=== PATIENT | male | born 1960 | race Caucasian/White ===

== ENCOUNTER 2017-03-07 00:52 | Inpatient (IN) | payer OTHER ==
[2017-03-07] VITALS (8 sets, daily range): BP systolic 128–154; BP diastolic 65–74; PULSE 90–102; TEMP 36.8–37.2; O2SAT 69–97; BMI 29.8
[~2017-03-07] VITALS: Ht 170.2 cm; Wt 72.4 kg
[2017-03-07] MEDS ORDERED: LORAZEPAM 2 MG/ML 1 ML VIAL IV PRN (09:30)
[2017-03-07] MEDS ORDERED: ONDANSETRON INJ 2 MG/ML 2 ML VIAL IV PRN (09:30)
[2017-03-07] MEDS ORDERED: INSULIN GLARGINE SOLOSTAR 100 UNITS/ML 3 ML PEN SC SCH (09:30)
[2017-03-07] MEDS ORDERED: HydrALAZINE HCL 20 MG/ML VIAL IV. PRN (09:30)
[2017-03-07] MEDS ORDERED: ACETAMINOPHEN 325 MG TAB PO PRN (09:30)
[2017-03-07] MEDS ORDERED: LORAZEPAM 0.5 MG TAB PO PRN (09:30)
[2017-03-07] MEDS ORDERED: PATIENT'S ALLERGY INFO NEEDS ENTERED SCH (10:15)
[2017-03-07] MEDS ORDERED: FERR1TAB13 PO (10:51)
[2017-03-07] MEDS ORDERED: ASPI81TA28 PO (10:51)
[2017-03-07] MEDS ORDERED: PANT40TA PO (10:51)
[2017-03-07] MEDS ORDERED: INSPMPHMLG SQ (10:51)
[2017-03-07] MEDS ORDERED: INSU1.2I SQ (10:51)
[2017-03-07] MEDS ORDERED: GABA-113 PO (10:51)
[2017-03-07] MEDS ORDERED: AMLO2.5T PO (10:51)
[2017-03-07] MEDS ORDERED: ASCO500C43 OR (10:51)
[2017-03-07] MEDS ORDERED: LOSA50TA6 PO (10:51)
[2017-03-07] MEDS: SODIUM CHLORIDE 0.9% 1000ML 1,000 ML IV SCH ×2 (10:59→21:35)
[2017-03-07] MEDS ORDERED: INFLUENZA VIRUS QUAD VACCINE 0.5 ML SYR IM. ONE (11:00)
[2017-03-07] MEDS ORDERED: INSULIN ASPART 100 UNITS/ML 3 ML PEN SC SCH (11:00)
[2017-03-07] MEDS ORDERED: INFLUENZA ADMINISTRATION CHARGE ONE (11:00)
[2017-03-07 11:10] LABS: CALCIUM 8.4 mg/dl (8.5-10.1)
[2017-03-07] MEDS ORDERED: DEXTROSE 50% 50 ML SYR IV PRN (11:30)
[2017-03-07] MEDS ORDERED: GLUCOSE 10 TABS/TUBE PO PRN (11:30)
[2017-03-07] MEDS ORDERED: GLUCOSE 40% GEL 15 GM TUBE PO PRN (11:30)
[2017-03-07] MEDS ORDERED: GLUCAGON FOR INJ 1 MG VIAL SQ PRN (11:30)
[2017-03-07] MEDS: PANTOprazole INJ 40 MG in SYRINGE 0 ML IV SCH (11:40)
[2017-03-07] MEDS ORDERED: SODIUM POLYST. SULF SUSP 15G/60ML PO ONE ×2 (11:58→18:45)
[2017-03-07] MEDS ORDERED: PHARMACY GLYCEMIC MGMT CONSULT SCH (12:22)
--- NOTE | 2017-03-07 13:36 | History and Physical ---
History & Physical Date & Time of Service: Mar 07, 2017 at 13:20 Chief Complaint: Abdominal Pain, Anemia Primary Care Physician: Mitul Chu M.D. History of Present Illness pt arrives in transfer from [facility] with abdominal pain and shortness of breath , the pt states his abdomen did begin bloating for the last few days after attending a the medical center picnic, he states his bowel movements are normal, he has had no diarrhea or fever. he has been making urine normally and his recent AV fistulae is without pain or new tenderness. IN the Er he was given antibiotic for possible infiltrate/pneumonia seen although did not have fever or cough( other than smokers cough). His abdominal pain is diffuse, dull and only worse with movement but does not have classic peritoneal signs. He also is noted to have some hypoglycemia at the ER Social History Smoking Status: Current Every Day Smoker Allergies Coded Allergies: No Known Allergies (Unverified , 03/07/17) Home Medications Scheduled Amlodipine (Norvasc), 2.5 MG PO DAILY Ascorbic Acid (Vitamin C 500 mg), 500 MG OR BID Aspirin (Aspirin Ec), 81 MG PO DAILY Ferrous Sulfate (Kp Ferrous Sulfate), 1 TAB PO BID Gabapentin (Neurontin), 1,200 MG PO TID Insulin Glargine (Toujeo Solostar), 45 SQ DAILY Insulin Human Lispro (Humalog), 8 SQ AC Losartan Potassium (Cozaar), 50 MG PO DAILY Pantoprazole (Protonix), 40 MG PO DAILY Review of Systems Constitutional: No fever, No chills Respiratory: + cough, + shortness of breath, No sputum, No dyspnea on exertion , No dyspnea at rest Cardiovascular: No chest pain, No orthopnea, No edema Abdomen: + pain, + constipation, No nausea, No vomiting, No diarrhea Neurologic: No memory loss, No paralysis, No weakness, No numbness/tingling Psychiatric: No depression symptoms, No anhedonism, No anxiety Endocrine: No fatigue, No excessive thirst, No excessive urination Physical Exam Vital Signs Date Time Temp Pulse Resp B/P (MAP) Pulse Ox O2 Delivery O2 Flow Rate FiO2 03/07/17 12:00 37.1 99 18 128/65 (86) 93 Nasal Cannula 6.0 03/07/17 12:00 93 Nasal Cannula 6.0 9/20/17 09:53 37.2 98 18 142/74 92 Room Air General Appearance: WD/WN, + mild distress Head: normocephalic, atraumatic Eyes: PERRL, EOMI ENT: hearing grossly normal, pharynx normal Respiratory/Chest: chest non-tender, + decreased breath sounds, + accessory muscle use Cardiovascular: regular rate, rhythm, no murmur Abdomen/GI: normal bowel sounds, soft, + tenderness Extremities/Musculoskelatal: no pedal edema, normal range of motion Neurologic/Psych: alert, oriented x 3 Skin: warm/dry, no rash Diagnostics Laboratory Results Results Past 24 Hours Test 03/07/17 10:12 Range/Units Sodium Level 139 136-145 mmol/L Potassium Level 6.0 3.5-5.1 mmol/L Chloride Level 109 98-107 mmol/L Carbon Dioxide Level 24 21-32 mmol/L Anion Gap 6.0 3-11 mmol/L Blood Urea Nitrogen 42 7-18 mg/dl Creatinine 3.00 0.60-1.40 mg/dl Est Creatinine Clear Calc Drug Dose 28.8 ml/min Estimated GFR () 25.7 Estimated GFR (Non- 22.2 BUN/Creatinine Ratio 14.0 10-20 Random Glucose 144 70-99 mg/dl Calcium Level 8.4 8.5-10.1 mg/dl Microbiology Results 03/07/17 MRSA DNA Surveillance Screen, Received Pending Impression Assessment and Plan 57 M with transfer for acute on chronic renal failure, hyperkalemia, abdominal pain and possible pneumonia. Acute on chronic renal failure with hyperkalemia, kayexalate given, no acute ECG changes, will gentle hydrate as is npo X sips pneumonia possible in setting of copd, ongoing smoking, levaquin 750 q 48, escalate copd treatment and consider steroids abdominal pain, no diarrhea and CT without significant changes, will check plain film for constipation, change protonix to iv due to npo status htn, with renal failure hold ARB continue norvasc and hydralazine prn DM will have SSI, pharmacy glycemic management heparin for DVT prevention Advanced Directives Existing Living Will: No Existing Power of Geomagnetist: No VTE Prophylaxis VTE Risk Assessment Done? Y/N: Yes Risk Level: Moderate
[2017-03-07] MEDS ORDERED: ALBUT/IPRATROP 3MG/0.5MG NEB 3 ML VIAL INH PRN (13:45)
--- NOTE | 2017-03-07 13:57 | DIAGNOSTIC IMAGING REPORT ---
ABDOMEN 2VIEW W/PA CHEST RTN CLINICAL HISTORY: eval for constipation pain. Constipation. COMPARISON STUDY: No previous studies for comparison. FINDINGS: Mild nonspecific interstitial edema of the lungs. Diaphragms are smooth. No evidence for cardiac enlargement. Bowel pattern is considered nonobstructive. There is mild radiopaque contrast within the a sending colon. Moderate fecal load within the a sending transverse colonic region. No evidence for fecal impaction. IMPRESSION: 1. No evidence for fecal impaction. 2. Mild increase in fecal load within the a sending and transverse colonic regions. 3. Nonobstructive bowel pattern. 4. Mild interstitial edema of the chest. The above report was generated using voice recognition software. It may contain grammatical, syntax or spelling errors. Electronically signed by: Jalil Diamond M.D. 03/07/2017 1:56 PM Dictated Date/Time: 03/07/2017 1:54 PM
[2017-03-07] MEDS ORDERED: GABAPENTIN 600 MG TAB PO SCH (14:00)
[2017-03-07] MEDS: LEVOFLOXACIN / D5W 750 MG in PREMIXED IN D5W 150 ML IV SCH (14:04)
--- NOTE | 2017-03-07 14:06 | Pharmacy Progress Note ---
Glycemic Control Intl Consult Date of Service Mar 07, 2017. Scope Glycemic Pharmacist consulted by Jonathon MAST on 03/07/17 for glycemic control and to write orders per [facility] inpatient glycemic control protocol Objective Weight (Kilograms): 86.200 Accuchecks BSG (last 24hrs): Test 03/07/17 10:12 Random Glucose 144 mg/dl (70-99) Laboratory Data (last 24hrs) Test 03/07/17 10:12 Anion Gap 6.0 mmol/L BUN/Creatinine Ratio 14.0 Blood Urea Nitrogen 42 mg/dl Creatinine 3.00 mg/dl Potassium Level 6.0 mmol/L Sodium Level 139 mmol/L Recent Pertinent Medications Outpatient Anti-diabetic Regimen: * Toujeo 45 units SQ daily in the AM * Humalog 8 units SQ w/ each meal * A1c = ? % The patient is currently receiving: * Basal insulin: Lantus 20 units every 24 hours (has not yet received) * Correctional Insulin: Novolog Correction per scale ACHS Goal Range: Low 100 mg/dL - High 140 mg/dL Correction Factor: 25 mg/dL/unit * Prandial insulin: Per carb ratio of 1 unit per -- grams CHO consumed * Oral Agents: None currently Risk Factors for Insulin Resistance: * Infection: possible PNX; ordered Levofloxacin IV * Diet: currently NPO Assessment & Plan ASSESSMENT: * Type 2 diabetic transferred from [facility] this AM for abdominal pain , SOB, possible PNX, DL on CKD w/ hyperkalemia * Patient is reported to have been hypoglycemic overnight at [facility] as he was awaiting transfer. I reviewed the records from [facility] it looks like he did receive a 5 unit IV bolus of Regular Insulin at [facility] without dextrose administration, this may have been partially responsible for the reported hypoglycemic episode. He take Toujeo at home and has been NPO since arrival to [facility]. This insulin has a duration of greater than 24 hrs and is likely still on board if he gave himself a dose yesterday AM. He will likely need some basal insulin during this admission even if NPO. DL can also lower insulin requirements. * Will resume basal insulin in the form of Lantus and split the dose BID to minimize hypoglycemia risk and allow for easier titration. Will use a dosing scale on Lantus initially again to allow for greater protection against hypoglycemia. * Novolog correction and prandial insulin doses will be based upon and anticipated total daily insulin requirement of ~ 60-70 units when tolerating a diet. * Will check A1c w/ AM labs to assess level of control w/ outpt insulin doses PLAN FOR INPATIENT GLYCEMIC CONTROL: * Change Lantus to SQ BID: BSG less than 110 give 0 units; BSG 110-139 give 10 units; BSG 140 or greater give 15 units * Continuing correction factor to 20 mg/dl/unit * Changing carb ratio to 1 unit per 7 grams CHO consumed * Changing goal range to Low 110 mg/dL - High 140 mg/dL * Please note that the plan above was derived based on current level of insulin resistance and hospital stress. These recommendations are appropriate for inpatient admission only. Plan of care upon discharge will need to be reassessed to avoid potential outpatient hypo/hyperglycemia. Thank you.
[2017-03-07 14:42] LABS: PARTIAL THROMBOPLASTIN RATIO 1.3; PROTHROMBIN TIME (PATIENT) 10.3 SECONDS (9.0-12.0)
[2017-03-07 15:45] LABS: HEMATOCRIT 25.6 % (42-52); MEAN CELL VOLUME 95.5 fL (80-100); MEAN CORPUSCULAR HGB CONC 32.4 g/dl (32-36); MEAN PLATELET VOLUME 8.8 fL (7.4-10.4); PLATELET COUNT 238 K/uL (130-400); RED BLOOD COUNT 2.68 M/uL (4.7-6.1); WHITE BLOOD COUNT 9.25 K/uL (4.8-10.8)
[2017-03-07] MEDS ORDERED: EPOETIN ALFA 20,000 UNITS/ML VIAL SQ ONE (15:45)
[2017-03-07 16:00] LABS: BUN/CREATININE RATIO 13.9 (10-20); CALCIUM 8.9 mg/dl (8.5-10.1); POTASSIUM 5.7 mmol/L (3.5-5.1)
[2017-03-07] MEDS: ALBUT/IPRATROP 3MG/0.5MG NEB 3 ML VIAL INH SCH ×2 (16:00→20:25)
[2017-03-07 16:05] LABS: FERRITIN 854.1 ng/ml (8.0-388.0)
[2017-03-07] MEDS: INSULIN ASPART 100 UNITS/ML 3 ML PEN SC SCH (16:32)
[2017-03-07] MEDS: INSULIN GLARGINE SOLOSTAR 100 UNITS/ML 3 ML PEN SC SCH (16:33)
--- NOTE | 2017-03-07 18:19 | Nephrology Consultation ---
Nephrology Consultation Date & Providers Date of Consultation: Mar 07, 2017. Primary Care Provider: Mitul Chu M.D. Referring Provider: Reason for Consultation Evaluation and management for anemia in the setting of advanced CKD. History of Present Illness El is a 57-year-old gentlemen with past medical history significant for stage IV CKD, diabetes, hypertension admitted to the hospital as a direct admit from [facility] with anemia, abdominal pain and shortness of breath. Electronic medical records including labs and imaging are reviewed in detail during patient's visit. Gabe presented to the [facility] emergency room yesterday with abdominal pain, abdominal distension and shortness of breath. On admission he was found to have hemoglobin of 7.5 with recent hemoglobin several days ago was 8.8. He was hyperkalemic and had acute kidney injury creatinine was 3.2. Chest x-ray showed right hilar infiltrate concerning for pneumonia however did not have any fever, chills, cough or leukocytosis. CT abdomen without contrast showed moderate constipation, there are no sign of bowel obstruction or ascites or any other intra-abdominal pathology. Kidneys are otherwise unremarkable. Repeat lab this morning showed creatinine improved to 2.9 which seems to be his baseline, hemoglobin stable and potassium improved to 5.4 and he was transferred to [facility] for further management. El has baseline stage IV CKD secondary to diabetic and hypertensive nephropathy, creatinine has been 2.8 GFR around 25. Has low grade proteinuria and was on losartan 50 milligram which was recently decreased to 25 because of hyperkalemia. He had right brachiocephalic AV fistula placed on 02/27/[address] Wallace , currently maturing. He was seen by Dr. Rodríguez on 03/05/2017 when he was found to have drop in hemoglobin to 8.8 compared to his prior hemoglobin around 10 which was thought to be due to recent vascular procedure. He was otherwise feeling fine. He has no history of volume overload, has not been on diuretics and he has been voiding normally. He denies any recent active bleeding, hematemesis, melena or hemoptysis. Previously had colonoscopy in 1999 which was unremarkable. No recent EGD, colonoscopy. No history of GI bleeding before. He denies any recent NSAID use. Currently he is mainly complaining of abdominal pain and some breathing discomfort due to abdominal distension. He has been voiding normally and had bowel movement yesterday. Denies any nausea or vomiting. Allergies Coded Allergies: No Known Allergies (Unverified , 03/07/17) Inpatient Medications Current Inpatient Medications Medications (Trade) Dose Ordered Sig/Brayden Route Start Time Stop Time Status Last Admin Dose Admin Acetaminophen (Tylenol Tab) 650 mg Q4H PRN PO 03/07/17 09:30 04/06/17 09:29 Ondansetron HCl (Zofran Inj) 4 mg Q6H PRN IV 03/07/17 09:30 04/06/17 09:29 Polyethylene (Miralax Powder Packet) 17 gm DAILY PRN PO 03/07/17 09:30 04/06/17 09:29 Morphine Sulfate (MoRPHine SULFATE INJ) 2 mg Q4H PRN IV 03/07/17 09:30 03/21/17 09:29 Pantoprazole Sodium 40 mg/ Syringe 10 ml @ 5 mls/min DAILY@11 IV 03/07/17 11:15 04/06/17 11:14 03/07/17 11:40 5 MLS/MIN Amlodipine Besylate (Norvasc Tab) 5 mg QAM PO 03/08/17 09:00 04/07/17 08:59 Hydralazine HCl (HydrALAZINE INJ) 10 mg Q4H PRN IV. 03/07/17 09:30 04/06/17 09:29 Insulin Aspart (novoLOG ASPART) SLIDING SCALE If C... ACHS SC 03/07/17 11:00 04/06/17 10:59 Insulin Glargine (Lantus Solostar Pen) 20 units DAILY SC 03/07/17 09:30 04/06/17 09:29 Aspirin (Ecotrin Tab) 81 mg QAM PO 03/08/17 09:00 04/07/17 08:59 Gabapentin (Neurontin Tab) 1,200 mg TID PO 03/07/17 14:00 04/06/17 13:59 Lorazepam (Ativan Inj) 0.5 mg Q4H PRN IV 03/07/17 09:30 04/06/17 09:29 Lorazepam (Ativan Tab) 0.5 mg Q4H PRN PO 03/07/17 09:30 04/06/17 09:29 Sodium Chloride 1,000 ml @ 100 mls/hr Q10H IV 03/07/17 09:30 03/08/17 05:29 03/07/17 10:59 100 MLS/HR Glucose (Glucose 40% Gel) 15-30 GRAMS 15 GRAMS... UD PRN PO 03/07/17 11:30 04/06/17 11:29 Glucose (Glucose Chew Tab) 4-8 Tablets 4 Tabl... UD PRN PO 03/07/17 11:30 04/06/17 11:29 Dextrose (Dextrose 50% 50ML Syringe) 25-50ML OF 50% DW IV FOR... UD PRN IV 03/07/17 11:30 04/06/17 11:29 Glucagon (Glucagon Inj) 1 mg UD PRN SQ 03/07/17 11:30 04/06/17 11:29 Sodium Polystyrene Sulfonate (Kayexalate Susp) 30 gm NOW ONCE PO 03/07/17 11:58 03/07/17 11:59 Social History Smoking Status: Current Every Day Smoker Review of Systems A complete review of systems was performed. Pertinent positives are noted above. All other systems are negative. Physical Exam Date Time Temp Pulse Resp B/P (MAP) Pulse Ox O2 Delivery O2 Flow Rate FiO2 03/07/17 09:53 37.2 98 18 142/74 92 Room Air GENERAL: Middle-aged male AAA x 3, pleasant, pale, in mild distress. HEENT: Atraumatic, normocephalic. NECK: Supple, no JVD, no carotid bruit appreciated. ENT: No sinus tenderness MOUTH and THROAT: Moist oral mucosa, no oral ulcer or pharyngeal erythema RESPIRATORY: rales bilaterally at bases. CARDIOVASCULAR: S1, S2 normal, rate rhythm regular. ABDOMEN: Soft, distended, mild diffuse tenderness,, positive bowel sound. MUSCULOSKELETAL: No CVA tenderness. No joint swelling, erythema or tenderness. Normal range of motion. SKIN: No skin rash EXTREMITY: No lower extremity edema NEURO: No gross focal neurological deficit, speech fluent. PSYCHIATRY: Normal mood and judgment Laboratory Results Last 24 Hours Test 03/07/17 10:12 Sodium Level 139 mmol/L Potassium Level 6.0 mmol/L Chloride Level 109 mmol/L Carbon Dioxide Level 24 mmol/L Anion Gap 6.0 mmol/L Blood Urea Nitrogen 42 mg/dl Creatinine 3.00 mg/dl Est Creatinine Clear Calc Drug Dose 28.8 ml/min Estimated GFR () 25.7 Estimated GFR (Non- 22.2 BUN/Creatinine Ratio 14.0 Random Glucose 144 mg/dl Calcium Level 8.4 mg/dl Impression (1) Hyperkalemia (2) CKD (chronic kidney disease), stage IV (3) HTN (hypertension) (4) Anemia in chronic kidney disease (5) right arm av fistula (6) Diabetes Mr. Ayala is a 57-year-old gentlemen with stage 4 chronic kidney disease, anemia, hypertension, diabetes admitted to the hospital with anemia, hyperkalemia, AK with advanced CKD and abdominal pain. He has stage 4 chronic kidney disease secondary to diabetic nephropathy, baseline creatinine around 2.8 , has low grade proteinuria. Had AV fistula placed on 02/27/2017, now maturing. On admission his creatinine was slightly elevated from his baseline which now improved to 2.9. Has hyperkalemia has been on losartan 25 daily which was on hold currently. His hemoglobin usually has been running around 10 which recently dropped to 8.8 and dropped further on admission to 7.5. No history of GI bleeding, prior EGD colonoscopy was around 2009, currently denies any sign of active bleeding. Continues to have abdominal pain however CT was negative except constipation. Recommendations --Although patient has anemia related to advanced chronic kidney disease however recent significant drop in hemoglobin is of concern --suggest GI evaluation with FOBT and possible EGD colonoscopy as indicated --will check iron study, B12, folate, will start on Venofer or Epogen depending on iron study --monitor renal function with daily renal panel --decrease gabapentin to 300 mg BID --will give Kayexalate 30 gram x1 dose, repeat electrolyte in afternoon --renal diet --epogen 11549 unit 1 dose now Thank you for allowing me to participate in your patient's care. It was a pleasure to see Mr. Ayala This chart was completed utilizing [employer] Speech and voice recognition software. Grammatical errors, random word insertions, pronoun errors and incomplete sentences are occasional consequences of this system. Any questions or concerns about the content, text or information contained within the body of this dictation should be addressed directly to the physician for clarification.
[2017-03-07] MEDS: HEPARIN SOD 5000 UNIT/0.5 ML CARP SQ SCH (21:32)
[2017-03-07] MEDS: GABAPENTIN 300 MG CAP PO SCH (21:33)
[2017-03-08] VITALS (16 sets, daily range): BP systolic 139–153; BP diastolic 65–79; PULSE 90–101; TEMP 36.6–37.3; O2SAT 82–98; Ht 170.2 cm; Wt 72.4 kg
[2017-03-08] MEDS: MoRPHine SULFATE 2 MG/ML CARP IV PRN ×2 (00:18→21:53)
[2017-03-08] MEDS: INSULIN GLARGINE SOLOSTAR 100 UNITS/ML 3 ML PEN SC SCH ×2 (06:00→17:15)
[2017-03-08] MEDS: INSULIN ASPART 100 UNITS/ML 3 ML PEN SC SCH ×4 (06:00→17:14)
[2017-03-08 06:08] LABS: ESTIMATED AVERAGE GLUCOSE 137 mg/dl; HA1C FLAG Normal (Normal)
[2017-03-08 06:12] LABS: HEMATOCRIT 20.4 % (42-52); MEAN CELL VOLUME 96.7 fL (80-100); MEAN CORPUSCULAR HEMOGLOBIN 30.8 pg (25-34); MEAN CORPUSCULAR HGB CONC 31.9 g/dl (32-36); MEAN PLATELET VOLUME 8.1 fL (7.4-10.4); PLATELET COUNT 170 K/uL (130-400); RED BLOOD COUNT 2.11 M/uL (4.7-6.1); WHITE BLOOD COUNT 7.12 K/uL (4.8-10.8)
[2017-03-08 06:25] LABS: BUN/CREATININE RATIO 13.8 (10-20); CALCIUM 7.7 mg/dl (8.5-10.1); CREATININE 2.6 mg/dl (0.60-1.40); POTASSIUM 4.6 mmol/L (3.5-5.1)
[2017-03-08] MEDS: ALBUT/IPRATROP 3MG/0.5MG NEB 3 ML VIAL INH SCH ×4 (07:11→19:30)
[2017-03-08] MEDS: AMLODIPINE BESYLATE 5 MG TAB PO SCH (07:46)
[2017-03-08] MEDS: GABAPENTIN 300 MG CAP PO SCH ×2 (07:46→21:23)
[2017-03-08] MEDS: ASPIRIN 81 MG ECTAB PO SCH (07:46)
--- NOTE | 2017-03-08 09:03 | Pharmacy Progress Note ---
Glycemic Control Progress Note Date of Service Mar 08, 2017. Scope Glycemic Pharmacist consulted for glycemic control to write orders per [facility] inpatient glycemic control protocol. Objective Accuchecks BSG (last 24hrs): Test 03/07/17 10:12 03/07/17 14:15 03/08/17 05:30 03/08/17 05:58 Random Glucose 144 mg/dl (70-99) 130 mg/dl (70-99) 50 mg/dl (70-99) Bedside Glucose 63 mg/dl (70-99) Test 03/08/17 06:16 03/08/17 06:41 Bedside Glucose 59 mg/dl (70-99) 84 mg/dl (70-99) HbA1c: Test 03/08/17 05:30 Hemoglobin A1c 6.4 % (4.5-5.6) H Recent Pertinent Medications Outpatient Anti-diabetic Regimen: * Toujeo 45 units SQ daily in the AM * Humalog 8 units SQ w/ each meal * A1c = 6.4 % 03/08/17 The patient is currently receiving: * Basal insulin: Lantus SQ BID: BSG less than 110 0 units; 110-139 10 units; 140 or greater 15 units * Correctional Insulin: Novolog Correction per scale ACHS Goal Range: Low 110 mg/dL - High 140 mg/dL Correction Factor: 20 mg/dL/unit * Prandial insulin: Per carb ratio of 1 unit per 7 grams CHO consumed * Oral Agents: None currently Risk Factors for Insulin Resistance: * Infection: possible PNX; ordered Levofloxacin IV * Diet: currently NPO Assessment & Plan ASSESSMENT: 03/07/17 * Type 2 diabetic transferred from [facility] this AM for abdominal pain , SOB, possible PNX, DL on CKD w/ hyperkalemia * Patient is reported to have been hypoglycemic overnight at [facility] as he was awaiting transfer. I reviewed the records from [facility] it looks like he did receive a 5 unit IV bolus of Regular Insulin at [facility] without dextrose administration, this may have been partially responsible for the reported hypoglycemic episode. He take Toujeo at home and has been NPO since arrival to [facility]. This insulin has a duration of greater than 24 hrs and is likely still on board if he gave himself a dose yesterday AM. He will likely need some basal insulin during this admission even if NPO. DL can also lower insulin requirements. * Will resume basal insulin in the form of Lantus and split the dose BID to minimize hypoglycemia risk and allow for easier titration. Will use a dosing scale on Lantus initially again to allow for greater protection against hypoglycemia. * Novolog correction and prandial insulin doses will be based upon and anticipated total daily insulin requirement of ~ 60-70 units when tolerating a diet. * Will check A1c w/ AM labs to assess level of control w/ outpt insulin doses 03/08/17 * BSGs have ranged 50-144 over the last 24 hours * He developed hypoglycemia early this AM from excessive basal insulin on board. He only had 10 units of Lantus on board this AM (0.1units/kg) * He continues to be NPO at this time. Lantus dose was held this AM per dosing parameters. * I worry that restarting even a reduced dose of Lantus will place him at risk for hypoglycemia. Will adjust the dosing parameters on the Lantus order to given even lower doses today. Plan to give no Lantus unless BSG above 140 PLAN FOR INPATIENT GLYCEMIC CONTROL: * Change Lantus to SQ BID: BSG less than 140 give 0 units; BSG 140-179 give 7 units; BSG 180 or greater give 10 units * Continuing correction factor of 20 mg/dl/unit * Continuing carb ratio of 1 unit per 7 grams CHO consumed * Continuing goal range of Low 110 mg/dL - High 140 mg/dL * Please note that the plan above was derived based on current level of insulin resistance and hospital stress. These recommendations are appropriate for inpatient admission only. Plan of care upon discharge will need to be reassessed to avoid potential outpatient hypo/hyperglycemia. Thank you.
[2017-03-08] MEDS: HEPARIN SOD 5000 UNIT/0.5 ML CARP SQ SCH (09:32)
[2017-03-08] MEDS ORDERED: NURSING VERBAL MED ORDER ONE (09:45)
--- NOTE | 2017-03-08 09:45 | Hospitalist Progress Note ---
Hospitalist Progress Note Date of Service Mar 08, 2017. (Effie Kwong ., PRO) Subjective Pt evaluation today including: conversation w/ patient, physical exam, chart review, lab review, review of studies, review of inpatient medication list Voiding: no voiding problems Mr. Ayala looks better this morning, seated in a chair. His pain is better, abdomen is no longer tender. His major complain this morning is hunger due to being kept NPO. He felt short of breath yesterday but feels this was due to abdominal distention which has decreased following bowel movements yesterday. Constitutional: No fever, No chills Respiratory: + shortness of breath, No cough, No sputum Cardiovascular: No chest pain, No edema Abdomen: No pain, No nausea, No vomiting, No diarrhea, No GI bleeding All Other Systems: Reviewed and Negative (Effie Kwong CRNP) Medications Medications (Trade) Dose Ordered Sig/Brayden Route Start Time Stop Time Status Last Admin Dose Admin Pantoprazole Sodium 40 mg/ Syringe 10 ml @ 5 mls/min DAILY@11 IV 03/07/17 11:15 04/06/17 11:14 03/07/17 11:40 5 MLS/MIN Amlodipine Besylate (Norvasc Tab) 5 mg QAM PO 03/08/17 09:00 04/07/17 08:59 03/08/17 07:46 5 MG Insulin Aspart (novoLOG ASPART) SLIDING SCALE If C... ACHS SC 03/07/17 11:00 03/07/17 14:07 DC 03/07/17 12:13 1 UNITS Aspirin (Ecotrin Tab) 81 mg QAM PO 03/08/17 09:00 04/07/17 08:59 03/08/17 07:46 81 MG Influenza Virus Vaccine Quadrival (Flucelvax Quad Vaccine) 0.5 ml ONCE ONCE IM. 03/07/17 11:00 03/07/17 11:14 DC 03/07/17 22:43 0.5 ML Glucose (Glucose Chew Tab) 4-8 Tablets 4 Tabl... UD PRN PO 03/07/17 11:30 04/06/17 11:29 03/08/17 06:24 4 TABS Sodium Polystyrene Sulfonate (Kayexalate Susp) 30 gm NOW ONCE PO 03/07/17 11:58 03/07/17 12:01 DC 03/07/17 12:22 30 GM Gabapentin (Neurontin Cap) 300 mg BID PO 03/07/17 21:00 04/06/17 20:59 03/08/17 07:46 300 MG Albuterol/ Ipratropium (Duoneb) 3 ml QIDR INH 03/07/17 16:00 04/06/17 15:59 03/08/17 07:11 3 ML Heparin Sodium (Porcine) (Heparin Sq 5000 Unit/0.5ml) 5,000 unit Q12 SQ 03/07/17 21:00 04/06/17 20:59 03/07/17 21:32 5,000 UNIT Levofloxacin 750 mg/Prmx 150 ml @ 100 mls/hr Q48H IV 03/07/17 14:00 03/14/17 13:59 03/07/17 14:04 100 MLS/HR Insulin Glargine (Lantus Solostar Pen) See Protocol Text Q12H SC 03/07/17 18:00 04/06/17 17:59 03/07/17 16:33 10 UNITS Epoetin Jovi (Procrit Inj) 20,000 units ONE ONCE SQ 03/07/17 15:45 03/07/17 15:47 DC 03/07/17 16:32 20,000 UNITS Sodium Polystyrene Sulfonate (Kayexalate Susp) 30 gm 1845 ONCE PO 03/07/17 18:45 03/07/17 18:46 DC 03/07/17 18:35 30 GM (Effie Kwong, PRO) Objective Vital Signs Date Time Temp Pulse Resp B/P (MAP) Pulse Ox O2 Delivery O2 Flow Rate FiO2 03/08/17 08:45 36.6 96 20 139/75 96 4.0 03/08/17 08:19 37.3 93 24 147/71 93 4.0 03/08/17 08:00 36.7 95 20 140/71 (94) 97 Nasal Cannula 4.0 03/08/17 08:00 Nasal Cannula 4.0 03/08/17 07:11 96 16 98 Nasal Cannula 4.0 03/08/17 04:00 Oxymask 5.0 03/08/17 04:00 37.3 95 20 153/68 (96) 98 Oxymask 5.0 03/07/17 23:59 92 Oxymask 9.0 03/07/17 23:59 36.8 100 20 154/74 (100) 92 Oxymask 9.0 03/07/17 20:25 100 14 91 Nasal Cannula 2.0 03/07/17 20:00 36.9 93 12 146/74 (98) 96 Nasal Cannula 4.0 03/07/17 20:00 Nasal Cannula 4.0 03/07/17 16:37 90 18 97 Nasal Cannula 4.0 03/07/17 16:00 93 Nasal Cannula 6.0 03/07/17 12:00 37.1 99 18 128/65 (86) 93 Nasal Cannula 6.0 03/07/17 12:00 93 Nasal Cannula 6.0 03/07/17 09:53 37.2 98 18 142/74 92 Room Air (Effie Kwong CRNP) Physical Exam Notes: General: no distress Eyes: normal inspection, PERLL Respiratory: chest non tender, course breath sounds to auscultation with faint expiratory wheezes bilateral bases, no accessory muscle use Cardiac: regular rate and rhythm, no rub or gallop, no murmur, no edema, no jvd GI/: active bowel sounds, no abd pain or tenderness, soft, mild distention Extremities: normal range of motion, normal strength, non tender Neuro/Psych: alert and oriented x 3, normal mood and affect Skin: normal color, dry (Effie Kwong CRNP) Laboratory Results Last 24 Hours Test 03/07/17 10:12 03/07/17 14:15 03/07/17 16:01 03/08/17 05:30 Sodium Level 139 mmol/L 139 mmol/L 143 mmol/L Potassium Level 6.0 mmol/L 5.7 mmol/L 4.6 mmol/L Chloride Level 109 mmol/L 111 mmol/L 112 mmol/L Carbon Dioxide Level 24 mmol/L 23 mmol/L 24 mmol/L Anion Gap 6.0 mmol/L 5.0 mmol/L 7.0 mmol/L Blood Urea Nitrogen 42 mg/dl 42 mg/dl 36 mg/dl Creatinine 3.00 mg/dl 3.00 mg/dl 2.60 mg/dl Est Creatinine Clear Calc Drug Dose 28.8 ml/min 28.8 ml/min 33.3 ml/min Estimated GFR () 25.7 25.7 30.6 Estimated GFR (Non- 22.2 22.2 26.4 BUN/Creatinine Ratio 14.0 13.9 13.8 Random Glucose 144 mg/dl 130 mg/dl 50 mg/dl Calcium Level 8.4 mg/dl 8.9 mg/dl 7.7 mg/dl White Blood Count 9.25 K/uL 7.12 K/uL Red Blood Count 2.68 M/uL 2.11 M/uL Hemoglobin 8.3 g/dL 6.5 g/dL Hematocrit 25.6 % 20.4 % Mean Corpuscular Volume 95.5 fL 96.7 fL Mean Corpuscular Hemoglobin 31.0 pg 30.8 pg Mean Corpuscular Hemoglobin Concent 32.4 g/dl 31.9 g/dl RDW Standard Deviation 44.9 fL 45.4 fL RDW Coefficient of Variation 13.1 % 13.0 % Platelet Count 238 K/uL 170 K/uL Mean Platelet Volume 8.8 fL 8.1 fL Prothrombin Time 10.3 SECONDS Prothromb Time International Ratio 1.0 Activated Partial Thromboplast Time 33.8 SECONDS Partial Thromboplastin Ratio 1.3 Iron Level 25 mcg/dl Total Iron Binding Capacity 210 mcg/dl Transferrin 177 mg/dl Transferrin % Saturation 10 % Ferritin 854.1 ng/ml Vitamin B12 Level 576 pg/mL Folate 15.54 ng/mL Estimated Average Glucose 137 mg/dl Hemoglobin A1c 6.4 % Test 03/08/17 05:58 03/08/17 06:16 03/08/17 06:41 03/08/17 08:48 Bedside Glucose 63 mg/dl 59 mg/dl 84 mg/dl Last 24 Hours Test 03/07/17 10:12 03/07/17 14:15 03/07/17 16:01 03/08/17 05:30 Sodium Level 139 mmol/L 139 mmol/L 143 mmol/L Potassium Level 6.0 mmol/L 5.7 mmol/L 4.6 mmol/L Chloride Level 109 mmol/L 111 mmol/L 112 mmol/L Carbon Dioxide Level 24 mmol/L 23 mmol/L 24 mmol/L Anion Gap 6.0 mmol/L 5.0 mmol/L 7.0 mmol/L Blood Urea Nitrogen 42 mg/dl 42 mg/dl 36 mg/dl Creatinine 3.00 mg/dl 3.00 mg/dl 2.60 mg/dl Est Creatinine Clear Calc Drug Dose 28.8 ml/min 28.8 ml/min 33.3 ml/min Estimated GFR () 25.7 25.7 30.6 Estimated GFR (Non- 22.2 22.2 26.4 BUN/Creatinine Ratio 14.0 13.9 13.8 Random Glucose 144 mg/dl 130 mg/dl 50 mg/dl Calcium Level 8.4 mg/dl 8.9 mg/dl 7.7 mg/dl White Blood Count 9.25 K/uL 7.12 K/uL Red Blood Count 2.68 M/uL 2.11 M/uL Hemoglobin 8.3 g/dL 6.5 g/dL Hematocrit 25.6 % 20.4 % Mean Corpuscular Volume 95.5 fL 96.7 fL Mean Corpuscular Hemoglobin 31.0 pg 30.8 pg Mean Corpuscular Hemoglobin Concent 32.4 g/dl 31.9 g/dl RDW Standard Deviation 44.9 fL 45.4 fL RDW Coefficient of Variation 13.1 % 13.0 % Platelet Count 238 K/uL 170 K/uL Mean Platelet Volume 8.8 fL 8.1 fL Prothrombin Time 10.3 SECONDS Prothromb Time International Ratio 1.0 Activated Partial Thromboplast Time 33.8 SECONDS Partial Thromboplastin Ratio 1.3 Iron Level 25 mcg/dl Total Iron Binding Capacity 210 mcg/dl Transferrin 177 mg/dl Transferrin % Saturation 10 % Ferritin 854.1 ng/ml Vitamin B12 Level 576 pg/mL Folate 15.54 ng/mL Estimated Average Glucose 137 mg/dl Hemoglobin A1c 6.4 % Test 03/08/17 05:58 03/08/17 06:16 03/08/17 06:41 03/08/17 08:48 Bedside Glucose 63 mg/dl 59 mg/dl 84 mg/dl (Effie Kwong CRNP) Assessment and Plan Mr. Ayala is a 57 year old man who transferred from [facility] with acute on chronic renal failure, anemia, hyperkalemia, abdominal pain and possible pneumonia. Acute on chronic renal failure with hyperkalemia- kayexalate given yesterday and potassium normalized today, fluids discontinued per nephrology's recommendation Pneumonia possible in setting of copd- current smoker, levaquin 750 q 48, nebulizers, supplemental 02 as he is dropping into the high 70s to low 80s% oxygen saturations when sleeping, pulmonary consult. Abdominal pain, no diarrhea and CT without significant changes, no significant findings on xray - protonix bid, npo after midnight for consult with GI and possible EGD. Anemia - H&H dropped this morning to 6.5& 20.4, transfused 2 units and H&H has rebounded however no obvious source of bleeding. He does have some baseline anemia of chronic disease. Nephrology is following and GI will see him tomorrow. HTN - with renal failure hold ARB, continue norvasc and hydralazine prn DM - labile blood sugars with multiple hypoglycemic values over the past 25 hours, pharmacy glycemic management heparin discontinued due to possible bleed, SCDs for DVT prevention Code status - full resuscitation (Effie Kwong ., PRO) [employer] Physician Supervision Note: I interviewed and examined the patient. Discussed with Annita Kwong NP and agree with findings and plan as documented in the note. Any exceptions or clarifications are listed here: None Patient has family markedly anemic overnight there is no overt sign of blood loss and concern for GI bleed is paramount however the patient is having marked hypoxic episodes. He does have a significant history of smoking but is not having overt wheezing and does not appear in respiratory distress but likely just appears to be hypoxic. Gastroenterology and neurology will consider doing endoscopy however his palmar status is in question is His vital signs show hypoxia requiring augmentation His laboratories show appropriate rise of his hemoglobin after transfusion Cardiac exam is regular lungs have decreased breath sounds but air movement in all [place] no overt wheezes or loss of breath sounds his abdomen is normoactive bowel sounds and soft without evidence of any bruising bleeding he does have question of "bloating in his mind 57-year-old male transferred from [facility] with abdominal bloating found to have marked anemia and respiratory distress with acute hypoxic respiratory failure with unknown chronic lung disease plan the patient will have a noncontrast CT scan of his chest we cannot pursue a V COLIN workup at this time but we will look for other alternative causes such as heart failure not apparent on plain film or a pneumonic infiltrate and apparently plain film. If this becomes an issue we may pursue VQ scanning however anticoagulation is risky in this patient given his possible GI blood loss. We'll continue to support his vital signs treat a possible pneumonia augment his blood count and evaluate his hypoxia further before proceeding with any other interventional workup Documented By: Reji Glasgow (Reji Glasgow M.D.)
--- NOTE | 2017-03-08 10:26 | Clinical Documentation Query ---
CLINICAL DOCUMENTATION QUERY 57-y/o male transfer from [facility] with abdominal pain and SOB. Query #1/2 In your clinical opinion is this patient being managed for: ( ) Suspected GI Bleed evidenced by acute drop in H/H treated with 2 units of PRBC's. ( ) Not Agree ( ) Other explanation of clinical findings (Please Explain) ( ) Unable to determine (Please Define) ( ) Need to Discuss The medical record reflects the following clinical findings, treatment, and risk factors. Clinical Indicators: Abdominal pain, acutely worsening anemia (Hgb 6.6, Hct 20.4). Nephrology suspected GI involvement with anemia Treatment: GI consult, daily CBC's, FOCB, 2 units of PRBC's Risk Factors: Age Query #2/2 In your clinical opinion is this patient being managed for: ( ) Acute blood loss anemia in setting of possible GI Bleed treated with 2 units of PRBC's. ( ) Not Agree ( ) Other explanation of clinical findings (Please Explain) ( ) Unable to determine (Please Define) ( ) Need to Discuss The medical record reflects the following clinical findings, treatment, and risk factors. Clinical Indicators: Hgb 6.6, Hct 20.4 Treatment: daily CBC's, FOCB, 2 units of PRBC's Risk Factors: Age, CKD, ?GI bleed Please clarify and document your clinical opinion in the progress notes and discharge summary. Terms such as "probable", "suspected", "likely", "questionable", "possible", or "still to be ruled out" are acceptable. IF IN AGREEMENT, YOU MUST DOCUMENT ABOVE DIAGNOSTIC STATEMENT IN DAILY PROGRESS NOTES AND DISCHARGE SUMMARY. This document is not part of the patient's record. Thank You, Dakotah Cavazos, RN [phone]
[2017-03-08] MEDS: PANTOprazole INJ 40 MG in SYRINGE 0 ML IV SCH ×2 (11:12→21:23)
[2017-03-08 12:31] LABS: HEMATOCRIT 26.2 % (42-52); MEAN CELL VOLUME 93.2 fL (80-100); MEAN CORPUSCULAR HGB CONC 33.2 g/dl (32-36); MEAN PLATELET VOLUME 9.1 fL (7.4-10.4); PLATELET COUNT 181 K/uL (130-400); RED BLOOD COUNT 2.81 M/uL (4.7-6.1); WHITE BLOOD COUNT 7.26 K/uL (4.8-10.8)
[2017-03-08] MEDS ORDERED: FUROSEMIDE INJ 40 MG in SYRINGE 0 ML IV ONE (13:00)
--- NOTE | 2017-03-08 13:02 | Nephrology Progress Note ---
Nephrology Progress Note Date of Service Mar 08, 2017. Chief Complaint f/u for advanced CKD and anemia. Subjective Mr. Ayala Was seen and examined in his room this morning while he was getting blood transfusion. Remain otherwise asymptomatic but feels thirsty. Blood pressure stable. Renal function improved and currently at baseline, electrolyte acceptable. Hemoglobin dropped significantly this morning to 6.5 and 2 units of PRBC ordered currently getting the 2nd unit. Denies any black stool fresh blood per rectum, hemoptysis or hematemesis. Review of Systems A complete review of systems was performed. Pertinent positives are noted above. All other systems are negative. Vital Signs Last 8 Hrs Date Time Temp Pulse Resp B/P (MAP) Pulse Ox O2 Delivery O2 Flow Rate FiO2 03/08/17 12:00 Nasal Cannula 4.0 03/08/17 12:00 36.9 101 14 144/79 (100) 92 Nasal Cannula 4.0 03/08/17 11:15 36.9 98 18 144/74 94 4.0 03/08/17 11:02 92 16 98 Nasal Cannula 3.0 03/08/17 10:30 36.7 93 18 150/75 98 4.0 03/08/17 10:03 36.7 90 22 152/72 98 4.0 03/08/17 09:47 36.7 91 18 150/72 98 4.0 03/08/17 08:45 36.6 96 20 139/75 96 4.0 03/08/17 08:19 37.3 93 24 147/71 93 4.0 03/08/17 08:00 36.7 95 20 140/71 (94) 97 Nasal Cannula 4.0 03/08/17 08:00 Nasal Cannula 4.0 03/08/17 07:11 96 16 98 Nasal Cannula 4.0 Last Recorded Weight Weight (Kilograms): 87.600 Physical Exam GENERAL: middle aged male, AAA x 3, pleasant, healthy-appearing, not in any distress. NECK: Supple, no JVD. RESPIRATORY: Normal breathing efforts,bibasilar rales CARDIOVASCULAR: S1, S2 normal, rate rhythm regular. EXTREMITY: No lower extremity edema NEURO: speech fluent. PSYCHIATRY: Normal mood and judgment Laboratory Results Past 24 Hours 03/07/17 14:15 03/08/17 05:30 03/08/17 11:34 03/07/17 14:15 03/08/17 05:30 Test 03/07/17 14:15 03/07/17 16:01 03/08/17 05:30 03/08/17 05:58 Red Blood Count 2.68 M/uL (4.7-6.1) 2.11 M/uL (4.7-6.1) Mean Corpuscular Volume 95.5 fL (80-100) 96.7 fL (80-100) Mean Corpuscular Hemoglobin 31.0 pg (25-34) 30.8 pg (25-34) Mean Corpuscular Hemoglobin Concent 32.4 g/dl (32-36) 31.9 g/dl (32-36) RDW Standard Deviation 44.9 fL (36.4-46.3) 45.4 fL (36.4-46.3) RDW Coefficient of Variation 13.1 % (11.5-14.5) 13.0 % (11.5-14.5) Mean Platelet Volume 8.8 fL (7.4-10.4) 8.1 fL (7.4-10.4) Prothrombin Time 10.3 SECONDS (9.0-12.0) Prothromb Time International Ratio 1.0 (0.9-1.1) Activated Partial Thromboplast Time 33.8 SECONDS (21.0-31.0) Partial Thromboplastin Ratio 1.3 Anion Gap 5.0 mmol/L (3-11) 7.0 mmol/L (3-11) Est Creatinine Clear Calc Drug Dose 28.8 ml/min 33.3 ml/min Estimated GFR () 25.7 30.6 Estimated GFR (Non- 22.2 26.4 BUN/Creatinine Ratio 13.9 (10-20) 13.8 (10-20) Calcium Level 8.9 mg/dl (8.5-10.1) 7.7 mg/dl (8.5-10.1) Iron Level 25 mcg/dl (35-175) Total Iron Binding Capacity 210 mcg/dl (250-450) Transferrin 177 mg/dl (200-360) Transferrin % Saturation 10 % (20-50) Ferritin 854.1 ng/ml (8.0-388.0) Vitamin B12 Level 576 pg/mL (211-911) Folate 15.54 ng/mL (>5.38) Estimated Average Glucose 137 mg/dl Hemoglobin A1c 6.4 % (4.5-5.6) Bedside Glucose 63 mg/dl (70-99) Test 03/08/17 06:16 03/08/17 06:41 03/08/17 08:48 03/08/17 11:07 Bedside Glucose 59 mg/dl (70-99) 84 mg/dl (70-99) 124 mg/dl (70-99) Test 03/08/17 11:34 Red Blood Count 2.81 M/uL (4.7-6.1) Mean Corpuscular Volume 93.2 fL (80-100) Mean Corpuscular Hemoglobin 31.0 pg (25-34) Mean Corpuscular Hemoglobin Concent 33.2 g/dl (32-36) RDW Standard Deviation 47.2 fL (36.4-46.3) RDW Coefficient of Variation 13.7 % (11.5-14.5) Mean Platelet Volume 9.1 fL (7.4-10.4) Allergies Coded Allergies: No Known Allergies (Unverified , 03/07/17) Medications Current Inpatient Medications Medications (Trade) Dose Ordered Sig/Brayden Route Start Time Stop Time Status Last Admin Dose Admin Acetaminophen (Tylenol Tab) 650 mg Q4H PRN PO 03/07/17 09:30 04/06/17 09:29 Ondansetron HCl (Zofran Inj) 4 mg Q6H PRN IV 03/07/17 09:30 04/06/17 09:29 03/07/17 14:04 4 MG Polyethylene (Miralax Powder Packet) 17 gm DAILY PRN PO 03/07/17 09:30 04/06/17 09:29 Morphine Sulfate (MoRPHine SULFATE INJ) 2 mg Q4H PRN IV 03/07/17 09:30 03/21/17 09:29 03/08/17 00:18 2 MG Pantoprazole Sodium 40 mg/ Syringe 10 ml @ 5 mls/min DAILY@11 IV 03/07/17 11:15 04/06/17 11:14 03/08/17 11:12 5 MLS/MIN Amlodipine Besylate (Norvasc Tab) 5 mg QAM PO 03/08/17 09:00 04/07/17 08:59 03/08/17 07:46 5 MG Hydralazine HCl (HydrALAZINE INJ) 10 mg Q4H PRN IV. 03/07/17 09:30 04/06/17 09:29 Aspirin (Ecotrin Tab) 81 mg QAM PO 03/08/17 09:00 04/07/17 08:59 03/08/17 07:46 81 MG Lorazepam (Ativan Inj) 0.5 mg Q4H PRN IV 03/07/17 09:30 04/06/17 09:29 Lorazepam (Ativan Tab) 0.5 mg Q4H PRN PO 03/07/17 09:30 04/06/17 09:29 Glucose (Glucose 40% Gel) 15-30 GRAMS 15 GRAMS... UD PRN PO 03/07/17 11:30 04/06/17 11:29 Glucose (Glucose Chew Tab) 4-8 Tablets 4 Tabl... UD PRN PO 03/07/17 11:30 04/06/17 11:29 03/08/17 06:24 4 TABS Dextrose (Dextrose 50% 50ML Syringe) 25-50ML OF 50% DW IV FOR... UD PRN IV 03/07/17 11:30 04/06/17 11:29 Glucagon (Glucagon Inj) 1 mg UD PRN SQ 03/07/17 11:30 04/06/17 11:29 Miscellaneous Information (Consult Glycemic Management Pharmacy) 1 ea UD N/A 03/07/17 12:22 04/06/17 12:21 Gabapentin (Neurontin Cap) 300 mg BID PO 03/07/17 21:00 04/06/17 20:59 03/08/17 07:46 300 MG Albuterol/ Ipratropium (Duoneb) 3 ml QIDR INH 03/07/17 16:00 04/06/17 15:59 03/08/17 11:02 3 ML Albuterol/ Ipratropium (Duoneb) 3 ml Q2H PRN INH 03/07/17 13:45 04/06/17 13:44 Levofloxacin 750 mg/Prmx 150 ml @ 100 mls/hr Q48H IV 03/07/17 14:00 03/14/17 13:59 03/07/17 14:04 100 MLS/HR Insulin Aspart (novoLOG ASPART) SLIDING SCALE If C... Q6 SC 03/07/17 18:00 04/06/17 17:59 Insulin Glargine (Lantus Solostar Pen) See Protocol Text Q12H SC 03/07/17 18:00 04/06/17 17:59 03/07/17 16:33 10 UNITS Impression (1) Hyperkalemia (2) CKD (chronic kidney disease), stage IV (3) HTN (hypertension) (4) Anemia in chronic kidney disease (5) right arm av fistula (6) Diabetes Mr. Ayala is a 57-year-old gentlemen with stage 4 chronic kidney disease, anemia, hypertension, diabetes admitted to the hospital with anemia, hyperkalemia, AK with advanced CKD and abdominal pain. He has stage 4 chronic kidney disease secondary to diabetic nephropathy, baseline creatinine around 2.8 , has low grade proteinuria. Had AV fistula placed on 02/27/2017, now maturing. On admission his creatinine was slightly elevated from his baseline which now improved to 2.9. Has hyperkalemia has been on losartan 25 daily which was on hold currently. His hemoglobin usually has been running around 10 which recently dropped to 8.8 and dropped further on admission to 7.5. No history of GI bleeding, prior EGD colonoscopy was around 2009, currently denies any sign of active bleeding. Continues to have abdominal pain however CT was negative except constipation. Hemoglobin dropped to 6.5 this morning. Iron saturation 10 percent although ferritin elevated above 800. Recommendations --Lasix 40 milligram IV x1 dose --Epogen 72962 units subcu given on 03/07/2017 --start on Venofer 200 milligram IV every other day for total 5 doses, pending FOBT --monitor renal function with daily renal panel --avoid IV fluid Will follow This chart was completed utilizing [employer] Speech and voice recognition software. Grammatical errors, random word insertions, pronoun errors and incomplete sentences are occasional consequences of this system. Any questions or concerns about the content, text or information contained within the body of this dictation should be addressed directly to the physician for clarification.
[2017-03-08] MEDS: IRON SUCROSE INJ 200 MG in SODIUM CHLORIDE 0.9% 100ML 100 ML IV SCH (13:34)
--- NOTE | 2017-03-08 15:40 | Gastrointestinal Consultation ---
Gastrointestinal Consultation Date of Consultation: Mar 08, 2017 Attending Physician: Dr. Glasgow Consulting Physician: Divya Smith PA-C Reason for Consultation: Anemia History of Present Illness Patient is a 57 year old male who appears significantly older than his stated age with a past medical history of CKD4, COPD, type 2 diabetes mellitus, and hypertension who was transferred to [facility] from [facility] for further evaluation of abdominal pain and shortness of breath. The patient was found to have anemia and GI was subsequently consulted. The patient reports that he has had mild abdominal discomfort for several days after attending a picnic. He reports that he has not had constipation or diarrhea. He denies rectal bleeding or hematemesis. He denies NSAID use. He denies family history of GI malignancy. His H/H was 6.5/20.4 this AM but has been since rechecked and found to be 8.7/ 26.2. An abdominal xray indicates constipation. He was heme negative on rectal exam at [facility]. A CT scan at [facility]. A consult has been placed by the primary team for a pulmonology evaluation of profound hypoxia. A discussion with nursing indicated that the patient had been desaturating during sleep. Nursing staff reports that he was 69% on room air. He is presently 97% on 4 L O2. Nursing reports that he will decrease typically to 80% while sleeping. The patient reports dyspnea on exertion. He offers no further GI complaints at the present time. The patient was evaluated by Dr. Ridley in 2009 for the same issue of anemia. He underwent an EGD & colonoscopy that were unremarkable. Past Medical/Surgical History COPD CKD4 DM2 Diabetic neuropathy Anemia Past Medical History: COPD, CKD4, DM2, Diabetic neuropathy, Anemia Past Surgical History: AV fistula placement Social History Smoking Status: Current Every Day Smoker Alcohol Use: occasionally Allergies Coded Allergies: No Known Allergies (Unverified , 03/07/17) Current Medications Home Meds and Scripts Medications Dose Route/Sig Max Daily Dose Days Date Category Neurontin (Gabapentin) 300 Mg Cap 1,200 Mg PO TID 03/07/17 Reported Toujeo Solostar (Insulin Glargine) 300 Unit/Ml Inj 45 SQ DAILY 03/07/17 Reported Vitamin C 500 mg (Ascorbic Acid) 1 Chw Chw 500 Mg OR BID 03/07/17 Reported Humalog (Insulin Human Lispro) 1 Ea Inj 8 SQ AC 03/07/17 Reported Norvasc (Amlodipine Besylate) 2.5 Mg Tab 2.5 Mg PO DAILY 03/07/17 Reported Cozaar (Losartan Potassium) 50 Mg Tab 50 Mg PO DAILY 03/07/17 Reported Aspirin Ec (Aspirin) 81 Mg Tab 81 Mg PO DAILY 03/07/17 Reported Protonix (Pantoprazole Sodium) 40 Mg Tab 40 Mg PO DAILY 03/07/17 Reported Kp Ferrous Sulfate (Ferrous Sulfate) 325 Mg Tab 1 Tab PO BID 30 03/07/17 Reported Review of Systems Constitutional: No fever, No chills, No problem reported Eyes: No problem reported Respiratory: + cough, + shortness of breath, + dyspnea on exertion Cardiac: No chest pain Abdomen: + pain, No nausea, No vomiting, No diarrhea, No constipation, No GI bleeding Musculoskeletal: No joint pain Psych: No problem reported Skin: No problem reported Physical Exam Date Time Temp Pulse Resp B/P (MAP) Pulse Ox O2 Delivery O2 Flow Rate FiO2 03/08/17 14:48 95 16 97 Nasal Cannula 4.0 03/08/17 12:00 Nasal Cannula 4.0 03/08/17 12:00 36.9 101 14 144/79 (100) 92 Nasal Cannula 4.0 03/08/17 11:15 36.9 98 18 144/74 94 4.0 03/08/17 11:10 92 82 Nasal Cannula 2.0 03/08/17 11:02 92 16 98 Nasal Cannula 3.0 03/08/17 10:30 36.7 93 18 150/75 98 4.0 03/08/17 10:03 36.7 90 22 152/72 98 4.0 03/08/17 09:47 36.7 91 18 150/72 98 4.0 03/08/17 08:45 36.6 96 20 139/75 96 4.0 03/08/17 08:19 37.3 93 24 147/71 93 4.0 03/08/17 08:00 36.7 95 20 140/71 (94) 97 Nasal Cannula 4.0 03/08/17 08:00 Nasal Cannula 4.0 03/08/17 07:11 96 16 98 Nasal Cannula 4.0 03/08/17 04:00 Oxymask 5.0 03/08/17 04:00 37.3 95 20 153/68 (96) 98 Oxymask 5.0 03/07/17 23:59 92 Oxymask 9.0 03/07/17 23:59 36.8 100 20 154/74 (100) 92 Oxymask 9.0 03/07/17 20:25 100 14 91 Nasal Cannula 2.0 03/07/17 20:00 36.9 93 12 146/74 (98) 96 Nasal Cannula 4.0 03/07/17 20:00 Nasal Cannula 4.0 03/07/17 16:37 90 18 97 Nasal Cannula 4.0 03/07/17 16:00 93 Nasal Cannula 6.0 General Appearance: no apparent distress Eyes: normal inspection, PERRL Respiratory/Chest: + pertinent finding (prolonged expiratory phase) Cardiovascular: regular rate, rhythm Abdomen: normal bowel sounds, non tender, soft Extremities: non-tender, + pertinent finding (R BKA) Neurologic/Psych: alert, oriented x 3 Skin: normal color Laboratory Results Last 24 Hours Test 03/07/17 16:01 03/07/17 16:29 03/07/17 23:29 03/08/17 05:30 Vitamin B12 Level 576 pg/mL Folate 15.54 ng/mL Bedside Glucose 135 mg/dl 79 mg/dl White Blood Count 7.12 K/uL Red Blood Count 2.11 M/uL Hemoglobin 6.5 g/dL Hematocrit 20.4 % Mean Corpuscular Volume 96.7 fL Mean Corpuscular Hemoglobin 30.8 pg Mean Corpuscular Hemoglobin Concent 31.9 g/dl RDW Standard Deviation 45.4 fL RDW Coefficient of Variation 13.0 % Platelet Count 170 K/uL Mean Platelet Volume 8.1 fL Sodium Level 143 mmol/L Potassium Level 4.6 mmol/L Chloride Level 112 mmol/L Carbon Dioxide Level 24 mmol/L Anion Gap 7.0 mmol/L Blood Urea Nitrogen 36 mg/dl Creatinine 2.60 mg/dl Est Creatinine Clear Calc Drug Dose 33.3 ml/min Estimated GFR () 30.6 Estimated GFR (Non- 26.4 BUN/Creatinine Ratio 13.8 Random Glucose 50 mg/dl Estimated Average Glucose 137 mg/dl Hemoglobin A1c 6.4 % Calcium Level 7.7 mg/dl Test 03/08/17 05:58 03/08/17 06:16 03/08/17 06:41 03/08/17 08:48 Bedside Glucose 63 mg/dl 59 mg/dl 84 mg/dl Test 03/08/17 11:07 03/08/17 11:34 Bedside Glucose 124 mg/dl White Blood Count 7.26 K/uL Red Blood Count 2.81 M/uL Hemoglobin 8.7 g/dL Hematocrit 26.2 % Mean Corpuscular Volume 93.2 fL Mean Corpuscular Hemoglobin 31.0 pg Mean Corpuscular Hemoglobin Concent 33.2 g/dl RDW Standard Deviation 47.2 fL RDW Coefficient of Variation 13.7 % Platelet Count 181 K/uL Mean Platelet Volume 9.1 fL Impression Patient is a 57 year old male with anemia. He was evaluated for the same issue in 2009 and underwent an EGD & colonoscopy that were unremarkable at that time. Plan 1) Agree patient likely needs an EGD & colonoscopy for further evaluation of anemia as it has been 7 years since his previous studies, however given absence of overt GI bleeding would await pulmonology input given patient has been experiencing episodes of hypoxia and is being treated for questionable COPD exacerbation vs PNA. 2) Continue to monitor H/H. 3) Protonix 40 mg BID. 4) Supportive care per primary team. Thank you for allowing us to participate in the care of this patient. If you should have any further questions or concerns, do not hesitate to contact us. Agree with WADE Lopez as above Abd: Soft, NT, ND, +BS Continue current therapy and supportive care as per the primary team.
--- NOTE | 2017-03-08 18:12 | DIAGNOSTIC IMAGING REPORT ---
(CHEST) THORAX WITHOUT CLINICAL HISTORY: 57 years-old Male presenting with eval for pneumonia, pt with marked hypoxia and elev Cr. TECHNIQUE: Multidetector CT imaging of the chest was performed without the use of intravenous contrast. IV contrast: None. A dose lowering technique was used consistent with the principles of ALARA (as low as reasonably achievable). COMPARISON: Chest x-ray performed the previous day. CT DOSE (mGy.cm): The estimated cumulative dose is 392.32 mGy.cm. FINDINGS: Compliance Specialist topogram: Perihilar opacities. On soft tissue windows, normal thyroid and thoracic inlet. Bilateral gynecomastia. Multiple subcentimeter mediastinal lymph nodes, possibly reactive. Evaluation of the julio cesar is limited without intravenous contrast. Normal aorta. Prominence of the left atrium. Minimal coronary artery and aortic valve calcification. The intraventricular blood pool is less dense than the adjacent myocardium. Trace pericardial effusion. Moderate bilateral pleural effusions. Upper abdomen normal. On lung windows, extensive dependent opacities, some of which likely represents passive atelectasis, however, dependent groundglass and more solid consolidation also noted in the bilateral upper lobes. Patchy groundglass opacities in the upper lobes. Interlobular septal thickening noted at the apices and lung bases. Bronchial wall thickening. Airways patent. On bone windows, mild degenerative changes of the thoracic spine. IMPRESSION: 1. A combination of dependent and patchy opacities could be consistent with an infectious etiology. However, given the presence of intralobular septal thickening and bilateral moderate pleural effusions, a component of pulmonary edema is also suspected. Electronically signed by: Femi Roberts M.D. 03/08/2017 6:11 PM Dictated Date/Time: 03/08/2017 6:03 PM
[2017-03-09] VITALS (11 sets, daily range): BP systolic 127–170; BP diastolic 64–81; PULSE 65–98; TEMP 36.9–37.3; O2SAT 92–96
[2017-03-09 05:33] LABS: HEMATOCRIT 26.3 % (42-52); MEAN CELL VOLUME 91.6 fL (80-100); MEAN CORPUSCULAR HGB CONC 33.8 g/dl (32-36); MEAN PLATELET VOLUME 8.6 fL (7.4-10.4); PLATELET COUNT 162 K/uL (130-400); RED BLOOD COUNT 2.87 M/uL (4.7-6.1); WHITE BLOOD COUNT 7.48 K/uL (4.8-10.8)
[2017-03-09] MEDS: INSULIN GLARGINE SOLOSTAR 100 UNITS/ML 3 ML PEN SC SCH ×2 (06:00→21:00)
[2017-03-09] MEDS: INSULIN ASPART 100 UNITS/ML 3 ML PEN SC SCH ×5 (06:00→21:00)
[2017-03-09 06:01] LABS: BUN/CREATININE RATIO 11.4 (10-20); CALCIUM 8.2 mg/dl (8.5-10.1); CREATININE 2.6 mg/dl (0.60-1.40); POTASSIUM 4.3 mmol/L (3.5-5.1)
[2017-03-09] MEDS: ALBUT/IPRATROP 3MG/0.5MG NEB 3 ML VIAL INH SCH ×4 (07:17→19:13)
--- NOTE | 2017-03-09 08:09 | Pulmonary Consultation ---
History General Date of Service: Mar 09, 2017. Stated Complaint: Hypoxia HPI The patient is a 57 year old male who presents to [facility] with complaints of Abdominal Pain, Anemia. The patient's primary care provider is Mitul Chu M.D.. 57y/o male admitted to [facility] and transferred for higher level of care secondary to abdominal pain, anemia and shortness of breath. On arrival the patient was noted to have an SaO2 of 92% on room air but later become more OSB/ hypoxic with an SaO2 of 93% on 6Lnc. Further work-up noted a CT thorax with new gravity dependent infitrates with bilateral pleural effusions which is a notable change from his CT of the ABD/pelvis performed on 03/07/17. During our conversation the patient denies any shortness of breath. 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 During his work time he denies shortness of breath, classic cardiac chest pain, coughing or lower extremity swelling. He does continue to smoke at least half a pack per day and started in his mid to late teens and was up to at least 4 packs per day at one time. He denies any: Fever, chills, productive cough, chronic cough, classic cardiac chest pain, chronic pleurisy, dyspnea on exertion, unintentional weight loss or hemoptysis. Should also note that the patient does note daily vomiting associated with severe GERD but denies any recent aspiration events. Work-Up: EKG: NSR, Rate: 91 WBC: 9K7K H/H: / PLT: [id number] INR: 1.0 PT: 10.3 aPTT: 33.8 (H) BUN: 4230 Cr: 3.02.6 K+: 5.74.3 CT Thorax (03/08/17) Dependent infiltrates in the upper and lower lobes Bilateral pleural effusions CXR (03/07/17) Hilar fullness, fluid in the minor fissure, arabella-bronchial cuffing, and right lower and left lower lobe infiltrative patterns CT ABD/Pelvis (03/07/17) Small bilateral pleural effusions with some bilateral bronchiectasis Microbiology: Blood: no growth to date MRSA: negative Treatment: 1) Pantopazole 2) Norvasc 3) Duo-Neb QID & Q2 PRN 4) Levaquin 750mg Q48Hrs Historian: patient, EMS Review of Systems Constitutional: reports: no symptoms Eyes: reports: no symptoms ENT: reports: no symptoms Cardiovascular: reports: no symptoms Respiratory: reports: as stated in HPI Gastrointestinal: reports: as stated in HPI Genitourinary - Male: reports: no symptoms Musculoskeletal: reports: no symptoms Integumentary: reports: no symptoms Neurologic: reports: no symptoms Psychiatric: reports: no symptoms Endocrine: no symptoms Hematologic / Lymphatic: no symptoms Allergic / Immunologic: no symptoms Past Medical History Past Medical History: 1. Anemia 2. Chronic kidney disease (CKD), stage IV (severe) 3. Diabetes mellitus type 2, insulin dependent 4. Diabetic peripheral neuropathy 5. Dyslipidemia 6. Hypertension 7. Proliferative diabetic retinopathy, both eyes 8. Proteinuria 9. Sensory problems with limbs 10. Vitamin D deficiency 11. Hx: Celluitis 12. Hiatal hernia Past Surgical History: 1. AKA right 2. Oral Surgery Tooth Extraction 3. Surgery Vas Deferens Vasectomy 4. EGD: hiatal hernia, abnormal z-line 5. 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 ETOH: Rare Hx Tobacco Use In Past Year?: Yes Smoking Status: Current Every Day Smoker Allergies Coded Allergies: No Known Allergies (Unverified , 03/07/17) Current Medications Reported Home Medications Medications Dose Route/Sig Max Daily Dose Days Date Category Neurontin (Gabapentin) 300 Mg Cap 1,200 Mg PO TID 03/07/17 Reported Toujeo Solostar (Insulin Glargine) 300 Unit/Ml Inj 45 SQ DAILY 03/07/17 Reported Vitamin C 500 mg (Ascorbic Acid) 1 Chw Chw 500 Mg OR BID 03/07/17 Reported Humalog (Insulin Human Lispro) 1 Ea Inj 8 SQ AC 03/07/17 Reported Norvasc (Amlodipine Besylate) 2.5 Mg Tab 2.5 Mg PO DAILY 03/07/17 Reported Cozaar (Losartan Potassium) 50 Mg Tab 50 Mg PO DAILY 03/07/17 Reported Aspirin Ec (Aspirin) 81 Mg Tab 81 Mg PO DAILY 03/07/17 Reported Protonix (Pantoprazole Sodium) 40 Mg Tab 40 Mg PO DAILY 03/07/17 Reported Kp Ferrous Sulfate (Ferrous Sulfate) 325 Mg Tab 1 Tab PO BID 30 03/07/17 Reported Physical Physical Exam Vital Signs: Date Time Temp Pulse Resp B/P (MAP) Pulse Ox O2 Delivery O2 Flow Rate FiO2 03/09/17 07:17 92 16 96 Nasal Cannula 4.0 03/09/17 04:00 37.3 84 16 139/68 (91) 96 Nasal Cannula 4.0 03/09/17 04:00 Nasal Cannula 4.0 03/09/17 00:00 37.2 95 25 154/73 (100) 94 Nasal Cannula 4.0 03/09/17 00:00 Nasal Cannula 4.0 03/08/17 20:00 37.3 100 21 145/65 (91) 96 Nasal Cannula 4.0 03/08/17 20:00 Nasal Cannula 4.0 03/08/17 19:31 96 16 94 Nasal Cannula 4.0 03/08/17 16:03 101 16 149/78 (101) 98 Nasal Cannula 4.0 03/08/17 16:00 Nasal Cannula 4.0 03/08/17 14:48 95 16 97 Nasal Cannula 4.0 03/08/17 12:00 Nasal Cannula 4.0 03/08/17 12:00 36.9 101 14 144/79 (100) 92 Nasal Cannula 4.0 03/08/17 11:15 36.9 98 18 144/74 94 4.0 03/08/17 11:10 92 82 Nasal Cannula 2.0 03/08/17 11:02 92 16 98 Nasal Cannula 3.0 03/08/17 10:30 36.7 93 18 150/75 98 4.0 03/08/17 10:03 36.7 90 22 152/72 98 4.0 03/08/17 09:47 36.7 91 18 150/72 98 4.0 03/08/17 08:45 36.6 96 20 139/75 96 4.0 03/08/17 08:19 37.3 93 24 147/71 93 4.0 General Appearance: WELL-APPEARING, NO APPARENT DISTRESS Head: NORMOCEPHALIC, ATRAUMATIC Eyes: PERRLA, NO DISCHARGE, EOMI, SCLERAE NORMAL ENT: NORMAL EAR EXAM, NORMAL NASAL EXAM, NORMAL MOUTH EXAM, NORMAL THROAT EXAM , NORMAL DENTAL EXAM Neck: NORMAL RANGE OF MOTION, NO TENDERNESS, TRACHEA MIDLINE, NO STRIDOR Respiratory: other (decreased breath sounds with dullness to percussion at the bases and mild rhonchi posteriorly/ultrasound shows bilateral pleural effusions left greater than right) Cardiovasular: REGULAR RATE/RHYTHM, NORMAL S1S2, NO M/G/R, NO MURMUR, NO GALLOP Abdomen: NON TENDER, NORMAL BOWEL SOUNDS, NO REBOUND, NO MASSES, NO GUARDING, NO ORGANOMEGALY, NORMAL RECTAL EXAM (external inspection only) Genitourinary - Male: EXTERNAL GENITALIA NORMAL Back: NORMAL INSPECTION, NO MIDLINE TENDERNESS, NO CVA TENDERNESS, NO PARAVERTEBRAL TTP Upper Extremities: NO EDEMA, NO DEFORMITY, NORMAL ROM Lower Extremities: NO EDEMA, other (AKA on the right well healed no signs of breakdown) Pulses: carotid (R) (2+), carotid (L) (2+), dorsalis pedis (L) (1+) Neuro: ALERT, ORIENTED x 3, NORMAL MOTOR EXAM, NORMAL SENSATION, NORMAL CEREBELLAR EXAM Reflexes: biceps (R) (2+), bicpes (L) (2+), achilles (L) (1+) Babinski Testing: left (downgoing) Psychiatric: NORMAL AFFECT, NO SUICIDAL IDEATION Diagnostics Labs Results Past 24 Hours Test 03/08/17 11:07 03/08/17 11:34 03/08/17 17:10 03/09/17 00:04 Range/Units Bedside Glucose 124 198 90 70-99 mg/dl White Blood Count 7.26 4.8-10.8 K/uL Red Blood Count 2.81 4.7-6.1 M/uL Hemoglobin 8.7 14.0-18.0 g/dL Hematocrit 26.2 42-52 % Mean Corpuscular Volume 93.2 80-100 fL Mean Corpuscular Hemoglobin 31.0 25-34 pg Mean Corpuscular Hemoglobin Concent 33.2 32-36 g/dl RDW Standard Deviation 47.2 36.4-46.3 fL RDW Coefficient of Variation 13.7 11.5-14.5 % Platelet Count 181 130-400 K/uL Mean Platelet Volume 9.1 7.4-10.4 fL Test 03/09/17 05:11 03/09/17 06:09 Range/Units White Blood Count 7.48 4.8-10.8 K/uL Red Blood Count 2.87 4.7-6.1 M/uL Hemoglobin 8.9 14.0-18.0 g/dL Hematocrit 26.3 42-52 % Mean Corpuscular Volume 91.6 80-100 fL Mean Corpuscular Hemoglobin 31.0 25-34 pg Mean Corpuscular Hemoglobin Concent 33.8 32-36 g/dl RDW Standard Deviation 45.9 36.4-46.3 fL RDW Coefficient of Variation 13.6 11.5-14.5 % Platelet Count 162 130-400 K/uL Mean Platelet Volume 8.6 7.4-10.4 fL Sodium Level 141 136-145 mmol/L Potassium Level 4.3 3.5-5.1 mmol/L Chloride Level 109 98-107 mmol/L Carbon Dioxide Level 27 21-32 mmol/L Anion Gap 5.0 3-11 mmol/L Blood Urea Nitrogen 30 7-18 mg/dl Creatinine 2.60 0.60-1.40 mg/dl Est Creatinine Clear Calc Drug Dose 33.5 ml/min Estimated GFR () 30.6 Estimated GFR (Non- 26.4 BUN/Creatinine Ratio 11.4 10-20 Random Glucose 68 70-99 mg/dl Calcium Level 8.2 8.5-10.1 mg/dl Bedside Glucose 84 70-99 mg/dl Diagnostic Radiology CT Thorax (03/08/17) Dependent infiltrates in the upper and lower lobes Bilateral pleural effusions CXR (03/07/17) Hilar fullness, fluid in the minor fissure, arabella-bronchial cuffing, and right lower and left lower lobe infiltrative patterns CT ABD/Pelvis (03/07/17) Small bilateral pleural effusions with some bilateral bronchiectasis EKG Interpretation: NORMAL EKG Impression Assessment and Plan 57-year-old gentleman admitted for abdominal pain with possible hypoxemia: #1 Hypoxemia: Patient does not complain of shortness of breath and has a very active job which he ambulates 3 times per week with no notable shortness of breath. This does not fit the profile for her chronic COPD or so going off on steroids as the right option at this time. His SaO2 is notably low but I would like to obtain an ABG which the patient is consented to to verify hypoxemia or low oxygen concentration. It also is possible to some inflammatory effect from his current abdominal discomfort or possibly even aspiration event could've initiated his current hypoxemia leading to almost ARDS/shunt physiology. His thoracic ultrasound did show multiple B-lines suggesting intraparenchymal process possibly volume overload. I do agree with continued diuresis as well as renal function can handle. #2 Abdominal Pain: Would like to send off for an amylase and lipase to rule out pancreatitis as he was noted to initiate pulmonary changes/possible ARDS. #3 Pleural Effusion's: At this time his pleural effusions are small to moderate in size and would not be the etiology of his hypoxemia. They could help define the etiology of his underlying inflammation such as empyema or even volume overload from renal insufficiency. His thoracic ultrasound does show continuous B-lines approximately 3-4 per image which would suggest volume overload/ intraparenchymal process.
[2017-03-09 08:52] LABS: AMYLASE 34 U/L (25-115)
[2017-03-09 09:08] LABS: ISTAT ALLEN TEST Pass; ISTAT ARTERIAL BLOOD GAS HCO3 23 meq/L (19-24); ISTAT ARTERIAL BLOOD GAS PCO2 39 mmHg (35-46); ISTAT ARTERIAL BLOOD GAS PO2 65 mmHg (80-95); ISTAT ARTERIAL BLOOD GAS pH 7.38 (7.35-7.45); ISTAT CARBON DIOXIDE 24 mEq/l (24-31); ISTAT DELIVERY SYSTEM Cannula; ISTAT SITE L Radial
[2017-03-09] MEDS: GABAPENTIN 300 MG CAP PO SCH ×2 (09:17→21:00)
[2017-03-09] MEDS: AMLODIPINE BESYLATE 5 MG TAB PO SCH (09:17)
[2017-03-09] MEDS: ASPIRIN 81 MG ECTAB PO SCH (09:17)
[2017-03-09] MEDS: PANTOprazole INJ 40 MG in SYRINGE 0 ML IV SCH (09:20)
--- NOTE | 2017-03-09 09:56 | Gastroenterology Progress Note ---
Progress Note Date of Service: Mar 09, 2017 Subjective Pt evaluation today including: conversation w/ patient, physical exam, lab review, review of studies Patient is a 57 yo male hospitalized with chest & abdominal discomfort. GI has been consulted for anemia. The patient reports resolution of his abdominal pain. He denies constipation or diarrhea. He denies any overt GI bleeding. He has been evaluated by pulmonology. His H/H is presently stable at 8.9/26.3. He offers no further complaints. Review of Systems Constitutional: No fever, No chills Eyes: No problem reported Respiratory: No cough Cardiac: No problem reported Abdomen: No pain, No nausea, No vomiting, No diarrhea, No constipation, No GI bleeding Musculoskeletal: No problem reported Skin: No problem reported Medications Current Inpatient Medications Medications (Trade) Dose Ordered Sig/Brayden Route Start Time Stop Time Status Last Admin Dose Admin Acetaminophen (Tylenol Tab) 650 mg Q4H PRN PO 03/07/17 09:30 04/06/17 09:29 Ondansetron HCl (Zofran Inj) 4 mg Q6H PRN IV 03/07/17 09:30 04/06/17 09:29 03/07/17 14:04 4 MG Polyethylene (Miralax Powder Packet) 17 gm DAILY PRN PO 03/07/17 09:30 04/06/17 09:29 Morphine Sulfate (MoRPHine SULFATE INJ) 2 mg Q4H PRN IV 03/07/17 09:30 03/21/17 09:29 03/08/17 21:53 2 MG Amlodipine Besylate (Norvasc Tab) 5 mg QAM PO 03/08/17 09:00 04/07/17 08:59 03/09/17 09:17 5 MG Hydralazine HCl (HydrALAZINE INJ) 10 mg Q4H PRN IV. 03/07/17 09:30 04/06/17 09:29 Aspirin (Ecotrin Tab) 81 mg QAM PO 03/08/17 09:00 04/07/17 08:59 03/09/17 09:17 81 MG Lorazepam (Ativan Inj) 0.5 mg Q4H PRN IV 03/07/17 09:30 04/06/17 09:29 Lorazepam (Ativan Tab) 0.5 mg Q4H PRN PO 9/20/17 09:30 04/06/17 09:29 Glucose (Glucose 40% Gel) 15-30 GRAMS 15 GRAMS... UD PRN PO 03/07/17 11:30 04/06/17 11:29 Glucose (Glucose Chew Tab) 4-8 Tablets 4 Tabl... UD PRN PO 03/07/17 11:30 04/06/17 11:29 03/08/17 06:24 4 TABS Dextrose (Dextrose 50% 50ML Syringe) 25-50ML OF 50% DW IV FOR... UD PRN IV 03/07/17 11:30 04/06/17 11:29 Glucagon (Glucagon Inj) 1 mg UD PRN SQ 03/07/17 11:30 04/06/17 11:29 Miscellaneous Information (Consult Glycemic Management Pharmacy) 1 ea UD N/A 03/07/17 12:22 04/06/17 12:21 Gabapentin (Neurontin Cap) 300 mg BID PO 03/07/17 21:00 04/06/17 20:59 03/09/17 09:17 300 MG Albuterol/ Ipratropium (Duoneb) 3 ml QIDR INH 03/07/17 16:00 04/06/17 15:59 03/09/17 07:17 3 ML Albuterol/ Ipratropium (Duoneb) 3 ml Q2H PRN INH 03/07/17 13:45 04/06/17 13:44 Levofloxacin 750 mg/Prmx 150 ml @ 100 mls/hr Q48H IV 03/07/17 14:00 03/14/17 13:59 03/07/17 14:04 100 MLS/HR Insulin Aspart (novoLOG ASPART) SLIDING SCALE If C... Q6 SC 03/07/17 18:00 04/06/17 17:59 03/08/17 17:14 3 UNITS Insulin Glargine (Lantus Solostar Pen) See Protocol Text Q12H SC 03/07/17 18:00 04/06/17 17:59 03/08/17 17:15 10 UNITS Iron Sucrose 200 mg/Sodium Chloride 110 ml @ 420 mls/hr Q2D@1400 IV 03/08/17 14:00 03/16/17 14:16 03/08/17 13:34 420 MLS/HR Pantoprazole Sodium 40 mg/ Syringe 10 ml @ 5 mls/min DAILY@ IV 03/08/17 21:00 04/07/17 20:59 03/09/17 09:20 5 MLS/MIN Objective Vital Signs Date Time Temp Pulse Resp B/P (MAP) Pulse Ox O2 Delivery O2 Flow Rate FiO2 03/09/17 08:00 93 Nasal Cannula 4.0 03/09/17 08:00 37.2 94 18 151/80 (103) 93 Nasal Cannula 4.0 03/09/17 07:17 92 16 96 Nasal Cannula 4.0 03/09/17 04:00 37.3 84 16 139/68 (91) 96 Nasal Cannula 4.0 03/09/17 04:00 Nasal Cannula 4.0 03/09/17 00:00 37.2 95 25 154/73 (100) 94 Nasal Cannula 4.0 03/09/17 00:00 Nasal Cannula 4.0 03/08/17 20:00 37.3 100 21 145/65 (91) 96 Nasal Cannula 4.0 03/08/17 20:00 Nasal Cannula 4.0 03/08/17 19:31 96 16 94 Nasal Cannula 4.0 03/08/17 16:03 101 16 149/78 (101) 98 Nasal Cannula 4.0 03/08/17 16:00 Nasal Cannula 4.0 03/08/17 14:48 95 16 97 Nasal Cannula 4.0 03/08/17 12:00 Nasal Cannula 4.0 03/08/17 12:00 36.9 101 14 144/79 (100) 92 Nasal Cannula 4.0 03/08/17 11:15 36.9 98 18 144/74 94 4.0 03/08/17 11:10 92 82 Nasal Cannula 2.0 03/08/17 11:02 92 16 98 Nasal Cannula 3.0 03/08/17 10:30 36.7 93 18 150/75 98 4.0 03/08/17 10:03 36.7 90 22 152/72 98 4.0 Physical Exam General Appearance: WD/WN, no apparent distress Eyes: normal inspection, PERRL Respiratory/Chest: + pertinent finding (prolonged expiratory phase) Cardiovascular: regular rate, rhythm Abdomen: normal bowel sounds, non tender, soft Extremities: non-tender Neurologic/Psych: alert, oriented x 3 Laboratory Results Last 24 Hours Test 03/08/17 11:07 03/08/17 11:34 03/08/17 17:10 03/09/17 00:04 Bedside Glucose 124 mg/dl 198 mg/dl 90 mg/dl White Blood Count 7.26 K/uL Red Blood Count 2.81 M/uL Hemoglobin 8.7 g/dL Hematocrit 26.2 % Mean Corpuscular Volume 93.2 fL Mean Corpuscular Hemoglobin 31.0 pg Mean Corpuscular Hemoglobin Concent 33.2 g/dl RDW Standard Deviation 47.2 fL RDW Coefficient of Variation 13.7 % Platelet Count 181 K/uL Mean Platelet Volume 9.1 fL Test 03/09/17 05:11 03/09/17 06:09 03/09/17 08:12 03/09/17 08:57 White Blood Count 7.48 K/uL Red Blood Count 2.87 M/uL Hemoglobin 8.9 g/dL Hematocrit 26.3 % Mean Corpuscular Volume 91.6 fL Mean Corpuscular Hemoglobin 31.0 pg Mean Corpuscular Hemoglobin Concent 33.8 g/dl RDW Standard Deviation 45.9 fL RDW Coefficient of Variation 13.6 % Platelet Count 162 K/uL Mean Platelet Volume 8.6 fL Sodium Level 141 mmol/L Potassium Level 4.3 mmol/L Chloride Level 109 mmol/L Carbon Dioxide Level 27 mmol/L Anion Gap 5.0 mmol/L Blood Urea Nitrogen 30 mg/dl Creatinine 2.60 mg/dl Est Creatinine Clear Calc Drug Dose 33.5 ml/min Estimated GFR () 30.6 Estimated GFR (Non- 26.4 BUN/Creatinine Ratio 11.4 Random Glucose 68 mg/dl Calcium Level 8.2 mg/dl Amylase Level 34 U/L Lipase 38 U/L Bedside Glucose 84 mg/dl Blood Gas Sample Site L Radial Bedside Blood Gas pH (LAB) 7.38 Bedside Blood Gas pCO2 (LAB) 39 mmHg Bedside Blood Gas pO2 (LAB) 65 mmHg Bedside Blood Gas HCO3 (LAB) 23 meq/L Bedside Blood Gas Total CO2 24 mEq/l Bedside Blood Gas Base Excess (LAB) -2.0 meq/L Bedside Blood Gas O2 Saturation 92.0 % Derick Test Pass Oxygen Delivery Device Cannula Assessment and Plan Patient is a 57 yo male with anemia. The patient's H/H is stable at present and he has no signs of overt GI bleeding and heme negative stool. 1) Continue to monitor H/H and monitor for overt signs of GI bleeding. 2) Eventual EGD & colonoscopy to evaluate anemia once acute pulmonary work-up and treatment is complete. 3) Supportive care per primary team. Thank you for allowing us to participate in the care of this patient. If you should have any further questions or concerns, do not hesitate to contact us. Patient was off the floor on two separate occasions, therefore patient was not seen by me today. Discussed case in detail with Divya Draper, PAC
--- NOTE | 2017-03-09 10:36 | Nephrology Progress Note ---
Nephrology Progress Note Date of Service Mar 09, 2017. Chief Complaint f/u for advanced CKD and anemia. Guillaume Bernal was seen and examined in his room this am. Overall feels well, denies SOB but requiring 4 L NC O2. Cr stable, Hb improved. Review of Systems A complete review of systems was performed. Pertinent positives are noted above. All other systems are negative. Vital Signs Last 8 Hrs Date Time Temp Pulse Resp B/P (MAP) Pulse Ox O2 Delivery O2 Flow Rate FiO2 03/09/17 07:17 92 16 96 Nasal Cannula 4.0 03/09/17 04:00 37.3 84 16 139/68 (91) 96 Nasal Cannula 4.0 03/09/17 04:00 Nasal Cannula 4.0 03/09/17 00:00 37.2 95 25 154/73 (100) 94 Nasal Cannula 4.0 03/09/17 00:00 Nasal Cannula 4.0 Last Recorded Weight Weight (Kilograms): 84.200 Physical Exam GENERAL: middle aged male, AAA x 3, pleasant, not in any distress. NECK: Supple, no JVD. RESPIRATORY: Normal breathing efforts,bibasilar rales CARDIOVASCULAR: S1, S2 normal, rate rhythm regular. EXTREMITY: No lower extremity edema, rt BKA NEURO: speech fluent. PSYCHIATRY: Normal mood and judgment Laboratory Results Past 24 Hours 03/08/17 11:34 03/09/17 05:11 03/09/17 05:11 Test 03/08/17 11:07 03/08/17 11:34 03/08/17 17:10 03/09/17 00:04 Bedside Glucose 124 mg/dl (70-99) 198 mg/dl (70-99) 90 mg/dl (70-99) Red Blood Count 2.81 M/uL (4.7-6.1) Mean Corpuscular Volume 93.2 fL (80-100) Mean Corpuscular Hemoglobin 31.0 pg (25-34) Mean Corpuscular Hemoglobin Concent 33.2 g/dl (32-36) RDW Standard Deviation 47.2 fL (36.4-46.3) RDW Coefficient of Variation 13.7 % (11.5-14.5) Mean Platelet Volume 9.1 fL (7.4-10.4) Test 03/09/17 05:11 03/09/17 06:09 Red Blood Count 2.87 M/uL (4.7-6.1) Mean Corpuscular Volume 91.6 fL (80-100) Mean Corpuscular Hemoglobin 31.0 pg (25-34) Mean Corpuscular Hemoglobin Concent 33.8 g/dl (32-36) RDW Standard Deviation 45.9 fL (36.4-46.3) RDW Coefficient of Variation 13.6 % (11.5-14.5) Mean Platelet Volume 8.6 fL (7.4-10.4) Anion Gap 5.0 mmol/L (3-11) Est Creatinine Clear Calc Drug Dose 33.5 ml/min Estimated GFR () 30.6 Estimated GFR (Non- 26.4 BUN/Creatinine Ratio 11.4 (10-20) Calcium Level 8.2 mg/dl (8.5-10.1) Bedside Glucose 84 mg/dl (70-99) Allergies Coded Allergies: No Known Allergies (Unverified , 03/07/17) Medications Current Inpatient Medications Medications (Trade) Dose Ordered Sig/Brayden Route Start Time Stop Time Status Last Admin Dose Admin Acetaminophen (Tylenol Tab) 650 mg Q4H PRN PO 03/07/17 09:30 04/06/17 09:29 Ondansetron HCl (Zofran Inj) 4 mg Q6H PRN IV 03/07/17 09:30 04/06/17 09:29 03/07/17 14:04 4 MG Polyethylene (Miralax Powder Packet) 17 gm DAILY PRN PO 03/07/17 09:30 04/06/17 09:29 Morphine Sulfate (MoRPHine SULFATE INJ) 2 mg Q4H PRN IV 03/07/17 09:30 03/21/17 09:29 03/08/17 21:53 2 MG Amlodipine Besylate (Norvasc Tab) 5 mg QAM PO 03/08/17 09:00 04/07/17 08:59 03/08/17 07:46 5 MG Hydralazine HCl (HydrALAZINE INJ) 10 mg Q4H PRN IV. 03/07/17 09:30 04/06/17 09:29 Aspirin (Ecotrin Tab) 81 mg QAM PO 03/08/17 09:00 04/07/17 08:59 03/08/17 07:46 81 MG Lorazepam (Ativan Inj) 0.5 mg Q4H PRN IV 03/07/17 09:30 04/06/17 09:29 Lorazepam (Ativan Tab) 0.5 mg Q4H PRN PO 03/07/17 09:30 04/06/17 09:29 Glucose (Glucose 40% Gel) 15-30 GRAMS 15 GRAMS... UD PRN PO 03/07/17 11:30 04/06/17 11:29 Glucose (Glucose Chew Tab) 4-8 Tablets 4 Tabl... UD PRN PO 03/07/17 11:30 04/06/17 11:29 03/08/17 06:24 4 TABS Dextrose (Dextrose 50% 50ML Syringe) 25-50ML OF 50% DW IV FOR... UD PRN IV 03/07/17 11:30 04/06/17 11:29 Glucagon (Glucagon Inj) 1 mg UD PRN SQ 03/07/17 11:30 04/06/17 11:29 Miscellaneous Information (Consult Glycemic Management Pharmacy) 1 ea UD N/A 03/07/17 12:22 04/06/17 12:21 Gabapentin (Neurontin Cap) 300 mg BID PO 03/07/17 21:00 04/06/17 20:59 03/08/17 21:23 300 MG Albuterol/ Ipratropium (Duoneb) 3 ml QIDR INH 03/07/17 16:00 04/06/17 15:59 03/09/17 07:17 3 ML Albuterol/ Ipratropium (Duoneb) 3 ml Q2H PRN INH 03/07/17 13:45 04/06/17 13:44 Levofloxacin 750 mg/Prmx 150 ml @ 100 mls/hr Q48H IV 03/07/17 14:00 03/14/17 13:59 03/07/17 14:04 100 MLS/HR Insulin Aspart (novoLOG ASPART) SLIDING SCALE If C... Q6 SC 03/07/17 18:00 04/06/17 17:59 03/08/17 17:14 3 UNITS Insulin Glargine (Lantus Solostar Pen) See Protocol Text Q12H SC 03/07/17 18:00 04/06/17 17:59 03/08/17 17:15 10 UNITS Iron Sucrose 200 mg/Sodium Chloride 110 ml @ 420 mls/hr Q2D@1400 IV 03/08/17 14:00 03/16/17 14:16 03/08/17 13:34 420 MLS/HR Pantoprazole Sodium 40 mg/ Syringe 10 ml @ 5 mls/min DAILY@09,21 IV 03/08/17 21:00 04/07/17 20:59 03/08/17 21:23 5 MLS/MIN Impression (1) Hyperkalemia (2) CKD (chronic kidney disease), stage IV (3) HTN (hypertension) (4) Anemia in chronic kidney disease (5) right arm av fistula (6) Diabetes Mr. Ayala is a 57-year-old gentlemen with stage 4 chronic kidney disease, anemia, hypertension, diabetes admitted to the hospital with anemia, hyperkalemia, AK with advanced CKD and abdominal pain. He has stage 4 chronic kidney disease secondary to diabetic nephropathy, baseline creatinine around 2.8 , has low grade proteinuria. Had AV fistula placed on 02/27/2017, now maturing. On admission his creatinine was slightly elevated from his baseline which now improved to 2.9. Has hyperkalemia has been on losartan 25 daily which was on hold currently. His hemoglobin usually has been running around 10 which recently dropped to 8.8 and dropped further on admission to 7.5. No history of GI bleeding, prior EGD colonoscopy was around 2009, currently denies any sign of active bleeding. Continues to have abdominal pain however CT was negative except constipation. Hemoglobin dropped to 6.5 this morning. Iron saturation 10 percent although ferritin elevated above 800. Hb improved to 8.9, seen by GI but not planning to do EGD/colonoscopy due to respiratory status. CT chest w/o contrast showed pneumonia and pulmonary congestion. Recommendations --Will give Lasix 40 milligram IV x1 dose now --continue on Venofer 200 milligram IV every other day for total 5 doses, Epogen 38962 units subcu given on 03/07/2017 --renal function at b/l AVF maturing, continue to monitor renal function with daily renal panel Will follow This chart was completed utilizing [employer] Speech and voice recognition software. Grammatical errors, random word insertions, pronoun errors and incomplete sentences are occasional consequences of this system. Any questions or concerns about the content, text or information contained within the body of this dictation should be addressed directly to the physician for clarification.
--- NOTE | 2017-03-09 10:54 | Hospitalist Progress Note ---
Hospitalist Progress Note Date of Service Mar 09, 2017. (Effie Kwong CRNP) Subjective Pt evaluation today including: conversation w/ patient, physical exam, chart review, lab review, review of studies, review of inpatient medication list Pain: none Voiding: no voiding problems Mr. Ayala feels like he is back to his baseline "I feel fine but they tell me I'm not" His abdominal pain has resolved, no further bowel movements. He is not short of breath, he coughs occasionally but this is normal for him, no sputum. Constitutional: No fever, No chills, No sweats Respiratory: + see HPI Cardiovascular: No chest pain Abdomen: + see HPI, No vomiting, No diarrhea, No GI bleeding All Other Systems: Reviewed and Negative (Effie Kwong CRNP) Medications Medications (Trade) Dose Ordered Sig/Brayden Route Start Time Stop Time Status Last Admin Dose Admin Furosemide 40 mg/ Syringe 4 ml @ 4 mls/min NOW ONCE IV 03/08/17 13:00 03/08/17 13:01 DC 03/08/17 13:34 4 MLS/MIN Iron Sucrose 200 mg/Sodium Chloride 110 ml @ 420 mls/hr Q2D@1400 IV 03/08/17 14:00 03/16/17 14:16 03/08/17 13:34 420 MLS/HR Pantoprazole Sodium 40 mg/ Syringe 10 ml @ 5 mls/min DAILY@ IV 03/08/17 21:00 04/07/17 20:59 03/09/17 09:20 5 MLS/MIN (Effie Kwong CRNP) Objective Vital Signs Date Time Temp Pulse Resp B/P (MAP) Pulse Ox O2 Delivery O2 Flow Rate FiO2 03/09/17 10:27 37.1 98 18 170/81 (110) 94 4.0 03/09/17 08:00 93 Nasal Cannula 4.0 03/09/17 08:00 37.2 94 18 151/80 (103) 93 Nasal Cannula 4.0 03/09/17 07:17 92 16 96 Nasal Cannula 4.0 03/09/17 04:00 37.3 84 16 139/68 (91) 96 Nasal Cannula 4.0 03/09/17 04:00 Nasal Cannula 4.0 03/09/17 00:00 37.2 95 25 154/73 (100) 94 Nasal Cannula 4.0 03/09/17 00:00 Nasal Cannula 4.0 03/08/17 20:00 37.3 100 21 145/65 (91) 96 Nasal Cannula 4.0 03/08/17 20:00 Nasal Cannula 4.0 03/08/17 19:31 96 16 94 Nasal Cannula 4.0 03/08/17 16:03 101 16 149/78 (101) 98 Nasal Cannula 4.0 03/08/17 16:00 Nasal Cannula 4.0 03/08/17 14:48 95 16 97 Nasal Cannula 4.0 03/08/17 12:00 Nasal Cannula 4.0 03/08/17 12:00 36.9 101 14 144/79 (100) 92 Nasal Cannula 4.0 03/08/17 11:15 36.9 98 18 144/74 94 4.0 03/08/17 11:10 92 82 Nasal Cannula 2.0 03/08/17 11:02 92 16 98 Nasal Cannula 3.0 (Effie Kwong CRNP) Physical Exam Notes: General: no distress Eyes: normal inspection, PERLL Respiratory: chest non tender, course bases bilaterally, no respiratory distress , no accessory muscle use Cardiac: regular rate and rhythm, no rub or gallop, no murmur, no edema, no jvd GI/: active bowel sounds, no abd pain or tenderness, soft, non distended Extremities: normal range of motion, normal strength, non tender Neuro/Psych: alert and oriented x 3, normal mood and affect Skin: normal color, dry (Effie Kwong CRNP) Laboratory Results Last 24 Hours Test 03/08/17 11:07 03/08/17 11:34 03/08/17 17:10 03/09/17 00:04 Bedside Glucose 124 mg/dl 198 mg/dl 90 mg/dl White Blood Count 7.26 K/uL Red Blood Count 2.81 M/uL Hemoglobin 8.7 g/dL Hematocrit 26.2 % Mean Corpuscular Volume 93.2 fL Mean Corpuscular Hemoglobin 31.0 pg Mean Corpuscular Hemoglobin Concent 33.2 g/dl RDW Standard Deviation 47.2 fL RDW Coefficient of Variation 13.7 % Platelet Count 181 K/uL Mean Platelet Volume 9.1 fL Test 03/09/17 05:11 03/09/17 06:09 03/09/17 08:57 White Blood Count 7.48 K/uL Red Blood Count 2.87 M/uL Hemoglobin 8.9 g/dL Hematocrit 26.3 % Mean Corpuscular Volume 91.6 fL Mean Corpuscular Hemoglobin 31.0 pg Mean Corpuscular Hemoglobin Concent 33.8 g/dl RDW Standard Deviation 45.9 fL RDW Coefficient of Variation 13.6 % Platelet Count 162 K/uL Mean Platelet Volume 8.6 fL Sodium Level 141 mmol/L Potassium Level 4.3 mmol/L Chloride Level 109 mmol/L Carbon Dioxide Level 27 mmol/L Anion Gap 5.0 mmol/L Blood Urea Nitrogen 30 mg/dl Creatinine 2.60 mg/dl Est Creatinine Clear Calc Drug Dose 33.5 ml/min Estimated GFR () 30.6 Estimated GFR (Non- 26.4 BUN/Creatinine Ratio 11.4 Random Glucose 68 mg/dl Calcium Level 8.2 mg/dl Total Bilirubin 0.6 mg/dl Direct Bilirubin 0.1 mg/dl Aspartate Amino Transf (AST/SGOT) 16 U/L Alanine Aminotransferase (ALT/SGPT) 16 U/L Alkaline Phosphatase 82 U/L Pro-B-Type Natriuretic Peptide 7475 pg/ml Total Protein 6.2 gm/dl Albumin 2.7 gm/dl Amylase Level 34 U/L Lipase 38 U/L Bedside Glucose 84 mg/dl Blood Gas Sample Site L Radial Bedside Blood Gas pH (LAB) 7.38 Bedside Blood Gas pCO2 (LAB) 39 mmHg Bedside Blood Gas pO2 (LAB) 65 mmHg Bedside Blood Gas HCO3 (LAB) 23 meq/L Bedside Blood Gas Total CO2 24 mEq/l Bedside Blood Gas Base Excess (LAB) -2.0 meq/L Bedside Blood Gas O2 Saturation 92.0 % Derick Test Pass Oxygen Delivery Device Cannula (Effie Kwong CRNP) Assessment and Plan Mr. Ayala is a 57 year old man who transferred from [facility] with acute on chronic renal failure, anemia, hyperkalemia, abdominal pain and possible pneumonia. Acute on chronic renal failure with hyperkalemia- kayexalate given 03/07 and potassium normalized, fluids discontinued per nephrology's recommendation Bilateral pleural effusions and pulmonary congestion - imaging shows fluid overload however patient is not feeling any symptoms - echocardiogram, lasix 40 mg 1x, fluid restriction Pneumonia possible in setting of copd- current smoker, levaquin 750 q 48, nebulizers, supplemental 02 as he is dropping into the high 70s to low 80s% oxygen saturations when sleeping, pulmonary consult, incentive spirometry. Abdominal pain, no diarrhea and CT without significant changes, no significant findings on xray - protonix bid, GI consult - they will likely EGD when respiratory issues have cleared as there is no current obvious bleeding and H&H is stable. Anemia - H&H dropped this morning to 6.5& 20.4, transfused 2 units and H&H has rebounded however no obvious source of bleeding. He does have some baseline anemia of chronic disease. Nephrology is following. HTN - with renal failure hold ARB, continue norvasc and hydralazine prn DM - labile blood sugars with multiple hypoglycemic values over first 24 hours, pharmacy glycemic management, diabetic diet heparin discontinued due to possible bleed, SCDs for DVT prevention Code status - full resuscitation (Effie Kwong ., PRO) [employer] Physician Supervision Note: I interviewed and examined the patient. Discussed with Annita Kwong [employer] and agree with findings and plan as documented in the note. Any exceptions or clarifications are listed here: None Patient is with shortness of breath which is felt to be volume overload pending echocardiogram, baseline COPD, SusPECT acute blood loss anemia Vital signs are stable with exception of some hypoxia sign lungs show crackles bibasally decreased breath sounds bilaterally heart is regular Treat possible volume overload check echocardiogram DuoNeb nebulizers and following hemoglobin patient also has acute on chronic renal failure he is being managed by nephrology Documented By: Reji Glasgow (Reji Glasgow M.D.)
--- NOTE | 2017-03-09 11:17 | Pharmacy Progress Note ---
Glycemic Control Progress Note Date of Service Mar 09, 2017. Scope Glycemic Pharmacist consulted for glycemic control to write orders per [facility] inpatient glycemic control protocol. Objective Accuchecks BSG (last 24hrs): Test 03/08/17 17:10 03/09/17 00:04 03/09/17 05:11 03/09/17 06:09 Bedside Glucose 198 mg/dl (70-99) 90 mg/dl (70-99) 84 mg/dl (70-99) Random Glucose 68 mg/dl (70-99) HbA1c: Test 03/08/17 05:30 Hemoglobin A1c 6.4 % (4.5-5.6) H Recent Pertinent Medications Outpatient Anti-diabetic Regimen: * Toujeo 45 units SQ daily in the AM * Humalog 8 units SQ w/ each meal * A1c = 6.4 % 03/08/17 The patient is currently receiving: * Basal insulin: Lantus SQ BID: BSG less than 140 0 units; 140-179 7 units; 180 or greater 10 units * Correctional Insulin: Novolog Correction per scale q 6 hours Goal Range: Low 110 mg/dL - High 140 mg/dL Correction Factor: 20 mg/dL/unit * Prandial insulin: Per carb ratio of 1 unit per 7 grams CHO consumed * Oral Agents: None currently Risk Factors for Insulin Resistance: * Infection: possible PNX; ordered Levofloxacin IV * Diet: currently ordered clear liquid / T2DM diet Outpatient Anti-Diabetic Meds Toujeo 45 units daily Humalog 8 units w/ each meal Assessment & Plan ASSESSMENT: 03/07/17 * Type 2 diabetic transferred from [facility] this AM for abdominal pain , SOB, possible PNX, DL on CKD w/ hyperkalemia * Patient is reported to have been hypoglycemic overnight at [facility] as he was awaiting transfer. I reviewed the records from [facility] it looks like he did receive a 5 unit IV bolus of Regular Insulin at [facility] without dextrose administration, this may have been partially responsible for the reported hypoglycemic episode. He take Toujeo at home and has been NPO since arrival to [facility]. This insulin has a duration of greater than 24 hrs and is likely still on board if he gave himself a dose yesterday AM. He will likely need some basal insulin during this admission even if NPO. DL can also lower insulin requirements. * Will resume basal insulin in the form of Lantus and split the dose BID to minimize hypoglycemia risk and allow for easier titration. Will use a dosing scale on Lantus initially again to allow for greater protection against hypoglycemia. * Novolog correction and prandial insulin doses will be based upon and anticipated total daily insulin requirement of ~ 60-70 units when tolerating a diet. * Will check A1c w/ AM labs to assess level of control w/ outpt insulin doses 03/08/17 * BSGs have ranged 50-144 over the last 24 hours * He developed hypoglycemia early this AM from excessive basal insulin on board. He only had 10 units of Lantus on board this AM (0.1units/kg) * He continues to be NPO at this time. Lantus dose was held this AM per dosing parameters. * I worry that restarting even a reduced dose of Lantus will place him at risk for hypoglycemia. Will adjust the dosing parameters on the Lantus order to given even lower doses today. Plan to give no Lantus unless BSG above 140 03/09/17 * Clear liquid diet ordered at this time * Mild hypoglycemia noted on PRP this AM (Glu 68) with 10 units Lantus on board (received 10 units as BSG above 180 yesterday evening) * Will adjust Lantus scale again as he is still appears prone to hypoglycemia w / current PO intake PLAN FOR INPATIENT GLYCEMIC CONTROL: * Change Lantus to SQ BID: BSG less than 140 give 0 units; BSG 140-179 give 5 units; BSG 180 or greater give 8 units * Continuing correction factor of 20 mg/dl/unit * Continuing carb ratio of 1 unit per 7 grams CHO consumed * Continuing goal range of Low 110 mg/dL - High 140 mg/dL * Please note that the plan above was derived based on current level of insulin resistance and hospital stress. These recommendations are appropriate for inpatient admission only. Plan of care upon discharge will need to be reassessed to avoid potential outpatient hypo/hyperglycemia. Thank you.
[2017-03-09] MEDS ORDERED: FUROSEMIDE 40 MG/4 ML VIAL IV ONE (12:15)
[2017-03-09] MEDS ORDERED: FUROSEMIDE INJ 40 MG in SYRINGE 0 ML IV ONE (13:30)
[2017-03-09] MEDS: LEVOFLOXACIN / D5W 750 MG in PREMIXED IN D5W 150 ML IV SCH (13:43)
--- NOTE | 2017-03-09 15:56 | ECHOCARDIOGRAM REPORT ---
*NOTICE TO RECEIVING [employer] This information is strictly Confidential and protected under [place] law. [place] law prohibits you from making any further disclosure of this information unless further disclosure is expressly permitted by the written consent of the person to whom it pertains or is authorized by law. A general authorization for the release of medical or other information is not sufficient for this purpose. Hospital accepts no responsibility if the information is made available to any other person, INCLUDING THE PATIENT. Interpretation Summary * Name: HUDSON BAZZI Study Date: 03/09/2017 02:22 PM BP: 170/81 mmHg * Patient Location: [facility]\S\N281\S\1 HR: 100 * : 1960 (M/d/yyyy) Gender: Male Height: 67 in * Age: 57 yrs Ethnicity: [place] Weight: 185 lb * Ordering Physician: Effie Kwong * Referring Physician: UNKNOWN * Performed By: Serena Rice RCS * * Reason For Study: CHF * BSA: 2.0 m2 * -- Conclusions -- * Left ventricular systolic function is normal. * No regional wall motion abnormalities noted. * Ejection Fraction = 60-65%. * No significant valvular pathology. Procedure Details * A complete two-dimensional transthoracic echocardiogram was performed (2D, M-mode, Doppler and color flow Doppler). Left Ventricle * The left ventricle is normal in size. * There is borderline concentric left ventricular hypertrophy. * Left ventricular systolic function is normal. * Ejection Fraction = 60-65%. * No regional wall motion abnormalities noted. Right Ventricle * The right ventricle is not well visualized. * The right ventricular systolic function is normal as assessed by tricuspid annular plane systolic excursion (TAPSE) (normal >1.5 cm). Atria * The left atrium is moderately dilated. * The right atrium is mildly dilated. * No ASD detected; PFO is not assessed. Mitral Valve * The mitral valve is normal in structure and function. * Mitral stenosis is absent. * Significant mitral regurgitation is absent. Tricuspid Valve * The tricuspid valve is not well visualized, but is grossly normal. * There is no tricuspid stenosis. * Significant tricuspid regurgitation is absent. Aortic Valve * The aortic valve is normal in structure and function. * No hemodynamically significant valvular aortic stenosis. * There is no significant aortic regurgitation. Pulmonic Valve * The pulmonary valve is not well seen, but the Doppler examination is normal without significant regurgitation or stenosis. Great Vessels * The aortic root is normal size. * The pulmonary is not well visualized. Pericardium/Pleural * There is no pericardial effusion. MMode 2D Measurements and Calculations IVSd 0.96 cm IVSs 1.5 cm LVIDd 4.9 cm LVIDs 3.5 cm LVPWd 1.2 cm LVPWs 1.3 cm IVS/LVPW 0.78 FS 29.3 % EDV(Teich) 113.6 ml ESV(Teich) 49.9 ml EF(Teich) 56.0 % EDV(cubed) 118.7 ml ESV(cubed) 41.9 ml EF(cubed) 64.7 % % IVS thick 59.8 % % LVPW thick 3.5 % LV mass(C)d 201.3 grams LV mass(C)dI 102.9 grams/m\S\2 LV mass(C)s 172.8 grams LV mass(C)sI 88.3 grams/m\S\2 SV(Teich) 63.7 ml SI(Teich) 32.5 ml/m\S\2 SV(cubed) 76.8 ml SI(cubed) 39.3 ml/m\S\2 Ao root diam 3.1 cm Ao root area 7.3 cm\S\2 ACS 2.0 cm LA dimension 4.7 cm LA/Ao 1.5 LVOT diam 2.0 cm LVOT area 3.0 cm\S\2 LVAd ap4 34.8 cm\S\2 LVLd ap4 8.1 cm EDV(MOD-sp4) 120.1 ml EDV(sp4-el) 127.4 ml LVAs ap4 23.2 cm\S\2 LVLs ap4 6.7 cm ESV(MOD-sp4) 66.8 ml ESV(sp4-el) 68.1 ml EF(MOD-sp4) 44.4 % EF(sp4-el) 46.5 % LVAd ap2 41.3 cm\S\2 LVLd ap2 9.1 cm EDV(MOD-sp2) 151.5 ml EDV(sp2-el) 159.2 ml LVAs ap2 21.1 cm\S\2 LVLs ap2 7.3 cm ESV(MOD-sp2) 52.7 ml ESV(sp2-el) 51.3 ml EF(MOD-sp2) 65.2 % EF(sp2-el) 67.8 % LVLd %diff 11.3 % EDV(MOD-bp) 143.5 ml LVLs %diff 8.4 % ESV(MOD-bp) 61.3 ml EF(MOD-bp) 57.3 % SV(MOD-sp4) 53.3 ml SI(MOD-sp4) 27.3 ml/m\S\2 SV(MOD-sp2) 98.8 ml SI(MOD-sp2) 50.5 ml/m\S\2 SV(MOD-bp) 82.3 ml SI(MOD-bp) 42.1 ml/m\S\2 SV(sp4-el) 59.3 ml SI(sp4-el) 30.3 ml/m\S\2 SV(sp2-el) 107.9 ml SI(sp2-el) 55.2 ml/m\S\2
[2017-03-09] MEDS: PANTOprazole SOD 40 MG TAB PO SCH (21:00)
[2017-03-09] MEDS: MoRPHine SULFATE 2 MG/ML CARP IV PRN (22:11)
[2017-03-10] VITALS (12 sets, daily range): BP systolic 138–162; BP diastolic 67–81; PULSE 85–106; TEMP 37–37.5; O2SAT 90–94
[2017-03-10] MEDS: MoRPHine SULFATE 2 MG/ML CARP IV PRN (03:10)
[2017-03-10] MEDS: ALBUT/IPRATROP 3MG/0.5MG NEB 3 ML VIAL INH SCH ×4 (07:06→19:09)
[2017-03-10 07:19] LABS: HEMATOCRIT 27.6 % (42-52); MEAN CELL VOLUME 90.2 fL (80-100); MEAN CORPUSCULAR HGB CONC 34.4 g/dl (32-36); MEAN PLATELET VOLUME 8.4 fL (7.4-10.4); PLATELET COUNT 178 K/uL (130-400); RED BLOOD COUNT 3.06 M/uL (4.7-6.1); WHITE BLOOD COUNT 8.01 K/uL (4.8-10.8)
[2017-03-10 07:47] LABS: BUN/CREATININE RATIO 11.6 (10-20); CALCIUM 8.7 mg/dl (8.5-10.1); POTASSIUM 4.4 mmol/L (3.5-5.1)
[2017-03-10] MEDS: PANTOprazole SOD 40 MG TAB PO SCH ×2 (08:42→21:25)
[2017-03-10] MEDS: ASPIRIN 81 MG ECTAB PO SCH (08:42)
[2017-03-10] MEDS: GABAPENTIN 300 MG CAP PO SCH ×2 (08:42→21:25)
[2017-03-10] MEDS: AMLODIPINE BESYLATE 5 MG TAB PO SCH (08:42)
[2017-03-10] MEDS: INSULIN GLARGINE SOLOSTAR 100 UNITS/ML 3 ML PEN SC SCH ×2 (08:51→21:24)
[2017-03-10] MEDS: INSULIN ASPART 100 UNITS/ML 3 ML PEN SC SCH ×4 (08:51→21:25)
--- NOTE | 2017-03-10 12:54 | Nephrology Progress Note ---
Nephrology Progress Note Date of Service Mar 10, 2017. Chief Complaint No acute events overnight. Gabe was seen and evaluated in his hospital room this morning. Overall, he feels well. Dyspnea is improving. He denied fevers or chills. No diarrhea or melena. Appetite is good. Abdominal symptoms improving. I discussed the plan of care with Dr. Glasgow this morning. Gabe is net negative 2.3 L in the past 24 hours with furosemide 40 mg IV. Unfortunately intake is not well documented. Review of Systems A complete review of systems was performed. Pertinent positives are noted above. All other systems are negative. Vital Signs Last 8 Hrs Date Time Temp Pulse Resp B/P (MAP) Pulse Ox O2 Delivery O2 Flow Rate FiO2 03/10/17 12:13 37.0 98 16 142/72 (95) 91 2.0 03/10/17 11:13 88 14 91 Nasal Cannula 2.0 03/10/17 08:05 37.0 95 18 138/69 (92) 91 Nasal Cannula 2.0 03/10/17 08:00 91 Nasal Cannula 2.0 03/10/17 07:08 85 16 90 Nasal Cannula 2.0 03/10/17 05:01 37.4 91 19 162/81 (108) 92 Nasal Cannula 2.0 Last Recorded Weight Weight (Kilograms): 69.400 Physical Exam General Appearance: WD/WN, no apparent distress Head: normocephalic, atraumatic Eyes: normal inspection, sclerae normal ENT: normal ENT inspection, pharynx normal Neck: supple, + JVD (10-12 cm (patient >45 degrees)) Respiratory/Chest: lungs clear, no respiratory distress, + rales (diffuse ( bases>apex)) Cardiovascular: regular rate, rhythm, no gallop, no murmur Abdomen/GI: non tender, soft Extremities/Musculoskelatal: normal inspection, no pedal edema, + pertinent finding (R BKA; AVF with thrill and bruit) Neurologic/Psych: alert, normal mood/affect, oriented x 3 Laboratory Results Past 24 Hours 03/10/17 06:57 03/10/17 06:57 Test 03/09/17 16:18 03/09/17 20:19 03/10/17 06:57 03/10/17 07:14 Bedside Glucose 140 mg/dl (70-99) 128 mg/dl (70-99) 148 mg/dl (70-99) Red Blood Count 3.06 M/uL (4.7-6.1) Mean Corpuscular Volume 90.2 fL (80-100) Mean Corpuscular Hemoglobin 31.0 pg (25-34) Mean Corpuscular Hemoglobin Concent 34.4 g/dl (32-36) RDW Standard Deviation 43.8 fL (36.4-46.3) RDW Coefficient of Variation 13.3 % (11.5-14.5) Mean Platelet Volume 8.4 fL (7.4-10.4) Anion Gap 9.0 mmol/L (3-11) Est Creatinine Clear Calc Drug Dose 25.7 ml/min Estimated GFR () 25.7 Estimated GFR (Non- 22.2 BUN/Creatinine Ratio 11.6 (10-20) Calcium Level 8.7 mg/dl (8.5-10.1) Procalcitonin 0.17 ng/ml (0-0.5) Test 03/10/17 11:33 Bedside Glucose 162 mg/dl (70-99) Allergies Coded Allergies: No Known Allergies (Unverified , 03/07/17) Medications Current Inpatient Medications Medications (Trade) Dose Ordered Sig/Brayden Route Start Time Stop Time Status Last Admin Dose Admin Acetaminophen (Tylenol Tab) 650 mg Q4H PRN PO 03/07/17 09:30 04/06/17 09:29 Ondansetron HCl (Zofran Inj) 4 mg Q6H PRN IV 03/07/17 09:30 04/06/17 09:29 03/07/17 14:04 4 MG Polyethylene (Miralax Powder Packet) 17 gm DAILY PRN PO 03/07/17 09:30 04/06/17 09:29 Morphine Sulfate (MoRPHine SULFATE INJ) 2 mg Q4H PRN IV 03/07/17 09:30 03/21/17 09:29 03/10/17 03:10 2 MG Amlodipine Besylate (Norvasc Tab) 5 mg QAM PO 03/08/17 09:00 04/07/17 08:59 03/10/17 08:42 5 MG Hydralazine HCl (HydrALAZINE INJ) 10 mg Q4H PRN IV. 03/07/17 09:30 04/06/17 09:29 Aspirin (Ecotrin Tab) 81 mg QAM PO 03/08/17 09:00 04/07/17 08:59 03/10/17 08:42 81 MG Lorazepam (Ativan Inj) 0.5 mg Q4H PRN IV 03/07/17 09:30 04/06/17 09:29 Lorazepam (Ativan Tab) 0.5 mg Q4H PRN PO 03/07/17 09:30 04/06/17 09:29 Glucose (Glucose 40% Gel) 15-30 GRAMS 15 GRAMS... UD PRN PO 03/07/17 11:30 04/06/17 11:29 Glucose (Glucose Chew Tab) 4-8 Tablets 4 Tabl... UD PRN PO 03/07/17 11:30 04/06/17 11:29 03/08/17 06:24 4 TABS Dextrose (Dextrose 50% 50ML Syringe) 25-50ML OF 50% DW IV FOR... UD PRN IV 03/07/17 11:30 04/06/17 11:29 Glucagon (Glucagon Inj) 1 mg UD PRN SQ 03/07/17 11:30 04/06/17 11:29 Miscellaneous Information (Consult Glycemic Management Pharmacy) 1 ea UD N/A 03/07/17 12:22 04/06/17 12:21 Gabapentin (Neurontin Cap) 300 mg BID PO 03/07/17 21:00 04/06/17 20:59 03/10/17 08:42 300 MG Albuterol/ Ipratropium (Duoneb) 3 ml QIDR INH 03/07/17 16:00 04/06/17 15:59 03/10/17 11:13 3 ML Albuterol/ Ipratropium (Duoneb) 3 ml Q2H PRN INH 03/07/17 13:45 04/06/17 13:44 Levofloxacin 750 mg/Prmx 150 ml @ 100 mls/hr Q48H IV 03/07/17 14:00 03/14/17 13:59 03/09/17 13:43 100 MLS/HR Iron Sucrose 200 mg/Sodium Chloride 110 ml @ 420 mls/hr Q2D@1400 IV 03/08/17 14:00 03/16/17 14:16 03/08/17 13:34 420 MLS/HR Insulin Glargine (Lantus Solostar Pen) See Protocol Text BID SC 03/09/17 21:00 04/08/17 20:59 03/10/17 08:51 5 UNITS Insulin Aspart (novoLOG ASPART) SLIDING SCALE If C... ACHS SC 03/09/17 11:00 04/08/17 10:59 03/10/17 12:32 8 UNITS Pantoprazole Sodium (Protonix Tab) 40 mg BID PO 03/09/17 21:00 04/08/17 20:59 03/10/17 08:42 40 MG Impression (1) Hyperkalemia (2) CKD (chronic kidney disease), stage IV (3) HTN (hypertension) (4) Anemia in chronic kidney disease (5) right arm av fistula (6) Diabetes Mr. Ayala is a 57-year-old gentlemen with CKD IV, anemia, hypertension, diabetes mellitus. He was admitted to [facility] with anemia, hyperkalemia, DL and abdominal pain. CKD is attributed to diabetic nephropathy. Baseline creatinine is ~ 2.8. Proteinuria has been low grade. AV fistula was placed on 02/27/2017. Due to hyperkalemia and DL, losartan 25 daily was stopped. Hemoglobin dropped to 7.5. Prior EGD colonoscopy was around 2009. No compelling evidence of active bleeding and endoscopic evaluation on hold due to acute hypoxia. CT chest w/o contrast showed pneumonia and pulmonary congestion. TTE was reviewed this morning showing normal LV size and systolic function without significant valvular heart disease. Recommendations CKD: -- Renal function overall stable -- Metabolic profile appropriate -- Medications appropriate for renal function -- AVF with thrill and bruit, continues to mature for use Anemia: -- No signs of active bleeding -- Patient is receiving Venofer 200 mg QOD -- Continue to monitor -- GI evaluation pending Acute respiratory failure: -- Volume status appears appropriate with evidence of pulmonary vascular congestion -- Continue to maintain slightly negative fluid balance (furosemide 20 mg today which may be given with Venofer today) -- Treatment of COPD per primary team -- Repeat CXR pending Hypertension: -- BP appropriate on amlodipine and hydralazine
--- NOTE | 2017-03-10 13:43 | PULMONARY PROGRESS NOTE ---
DATE: 03/10/2017 TIME: 1:10 p.m. SUBJECTIVE: The patient denies shortness of breath. He denies any cough. He did relate that when he had the abdominal pain, it took his breath but since the pain resolved, he does not feel short of breath. His stomach feels much better. He has somewhat of an appetite. OBJECTIVE: GENERAL: The patient appeared comfortable at rest. The patient has a full stephens. VITAL SIGNS: Maximum temperature today thus far is 37.4. HEENT: Eye exam showed implants in each eye. Nasal cannula was in place. Mouth exam showed moderate crowding. When questioned, the patient is not aware of snoring. NECK: Palpation of the neck reveals no lymph nodes. HEART: Rate is 100 per minute. The rhythm is regular. Blood pressure is 142/72. LUNGS: Auscultation of the lung oswald reveals rales bilaterally posteriorly. The breath sounds are diminished at both bases. The respiratory rate was 18 breaths per minute. Saturation is 91% on 2 liters. ABDOMEN: Soft. Bowel sounds were present. There was no focal tenderness to palpation. EXTREMITIES: Showed no edema. 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 LABORATORY DATA: White count is 8.01. Hemoglobin is 9.5 with hematocrit 27.6. Platelets are 178,000. Electrolytes show sodium 140, potassium 4.4, chloride 105, bicarb 26. The BUN is 35 with a creatinine of 3.0. IMPRESSIONS: 1. Hypoxemia. 2. Abdominal pain -- resolved. 3. Bilateral pleural effusions with inability to exclude pulmonary infiltrates. COMMENTS AND RECOMMENDATIONS: The patient indicates he is feeling better. He seems to have very few pulmonary symptoms. He does have auscultatory findings as noted. He is on levofloxacin. He is getting nebulizer treatments. I agree with the above. He will need followup x-rays to assure improvement.
[2017-03-10] MEDS ORDERED: FUROSEMIDE 20 MG TAB PO ONE ×2 (14:00→15:45)
--- NOTE | 2017-03-10 14:20 | DIAGNOSTIC IMAGING REPORT ---
CHEST ONE VIEW PORTABLE HISTORY: Short of breath. COMPARISON: Chest 03/07/2017. FINDINGS: Mild pulmonary edema, mild cardiomegaly, and small bilateral pleural effusions have slightly improved. No new focal lung consolidations. No pneumothorax. IMPRESSION: Slight improvement in the mild pulmonary edema and small bilateral pleural effusions. Electronically signed by: Hans Echeverria M.D. 03/10/2017 2:18 PM Dictated Date/Time: 03/10/2017 2:17 PM
[2017-03-10] MEDS: IRON SUCROSE INJ 200 MG in SODIUM CHLORIDE 0.9% 100ML 100 ML IV SCH (14:30)
--- NOTE | 2017-03-10 15:40 | Progress Note ---
Subjective Date of Service: Mar 10, 2017. Subjective this pt is feeling much better but is still with oxygen requirement still not clear of what kind of heart failure he has as echo was with preserved Ef and no discussion of Diastolic issues Review of Systems Constitutional: No fever, No chills Respiratory: + dyspnea on exertion, No cough, No sputum, No shortness of breath , No dyspnea at rest Cardiac: No chest pain, No PND, No edema Abdomen: No pain, No nausea, No vomiting, No diarrhea Objective Vital Signs Date Time Temp Pulse Resp B/P (MAP) Pulse Ox O2 Delivery O2 Flow Rate FiO2 03/10/17 14:13 88 16 92 Nasal Cannula 2.0 03/10/17 12:13 37.0 98 16 142/72 (95) 91 2.0 03/10/17 12:01 91 Nasal Cannula 2.0 03/10/17 11:13 88 14 91 Nasal Cannula 2.0 03/10/17 08:05 37.0 95 18 138/69 (92) 91 Nasal Cannula 2.0 03/10/17 08:00 91 Nasal Cannula 2.0 03/10/17 07:08 85 16 90 Nasal Cannula 2.0 03/10/17 05:01 37.4 91 19 162/81 (108) 92 Nasal Cannula 2.0 03/10/17 04:00 Nasal Cannula 2.0 03/10/17 00:17 37.5 102 18 160/73 (102) 94 Nasal Cannula 2.0 03/10/17 00:00 Nasal Cannula 2.0 03/09/17 20:00 Nasal Cannula 2.0 03/09/17 19:30 36.9 88 18 127/64 (85) 93 Nasal Cannula 2.0 03/09/17 19:15 65 16 93 Nasal Cannula 2.0 03/09/17 16:00 Nasal Cannula 2.0 Physical Exam General Appearance: WD/WN, + mild distress Eyes: PERRL, EOMI Respiratory/Chest: chest non-tender, no respiratory distress, + rales Cardiovascular: regular rate, rhythm, no murmur Abdomen: normal bowel sounds, non tender, soft Extremities: no pedal edema, no calf tenderness Neurologic/Psychiatric: alert, oriented x 3 Laboratory Results Last 24 Hours Test 03/09/17 16:18 03/09/17 20:19 03/10/17 06:57 03/10/17 07:14 Bedside Glucose 140 mg/dl 128 mg/dl 148 mg/dl White Blood Count 8.01 K/uL Red Blood Count 3.06 M/uL Hemoglobin 9.5 g/dL Hematocrit 27.6 % Mean Corpuscular Volume 90.2 fL Mean Corpuscular Hemoglobin 31.0 pg Mean Corpuscular Hemoglobin Concent 34.4 g/dl RDW Standard Deviation 43.8 fL RDW Coefficient of Variation 13.3 % Platelet Count 178 K/uL Mean Platelet Volume 8.4 fL Sodium Level 140 mmol/L Potassium Level 4.4 mmol/L Chloride Level 105 mmol/L Carbon Dioxide Level 26 mmol/L Anion Gap 9.0 mmol/L Blood Urea Nitrogen 35 mg/dl Creatinine 3.00 mg/dl Est Creatinine Clear Calc Drug Dose 25.7 ml/min Estimated GFR () 25.7 Estimated GFR (Non- 22.2 BUN/Creatinine Ratio 11.6 Random Glucose 137 mg/dl Calcium Level 8.7 mg/dl Procalcitonin 0.17 ng/ml Test 03/10/17 11:33 Bedside Glucose 162 mg/dl Assessment and Plan Mr. Ayala is a 57 year old man who transferred from [facility] with acute on chronic renal failure, anemia, hyperkalemia, abdominal pain and possible pneumonia, was found to have worsening anemia suspected to be acute blood loss from GI source and marked hypoxia with previous undiagnosed lung disease, CXR looks like pulmonary edema but Echo is with preserved EF and no mention of diastolic dysfunction. Acute on chronic renal failure with hyperkalemia- kayexalate given 03/07 and potassium normalized, fluids discontinued per nephrology's recommendation Pulmonary edema, may be acute diastolic heart failure, despite ckd 3 will diurese another day for symptomatic improvement Pneumonia ruled out, bronchitis if anything in setting of undiagnosed copd- current smoker, levaquin 750 q 48, nebulizers, supplemental 02 pulmonary medicine is consulted Abdominal pain, no diarrhea and CT without significant changes, no significant findings on xray - protonix bid, GI consult -could not have EGD due to hypoxia HTN - with renal failure hold ARB, continue norvasc and hydralazine prn DM - labile blood sugars, pharmacy glycemic management, diabetic diet heparin discontinued due to possible bleed, SCDs for DVT prevention Code status - full resuscitation
[2017-03-10] MEDS ORDERED: NURSING VERBAL MED ORDER ONE (17:15)
[2017-03-11] VITALS (9 sets, daily range): BP systolic 121–161; BP diastolic 69–76; PULSE 87–103; TEMP 36.7–37.2; O2SAT 92–96
[2017-03-11] MEDS: ALBUT/IPRATROP 3MG/0.5MG NEB 3 ML VIAL INH SCH ×4 (06:51→20:07)
[2017-03-11 06:56] LABS: HEMATOCRIT 28.3 % (42-52); MEAN CELL VOLUME 91.6 fL (80-100); MEAN CORPUSCULAR HEMOGLOBIN 30.7 pg (25-34); MEAN CORPUSCULAR HGB CONC 33.6 g/dl (32-36); MEAN PLATELET VOLUME 8.5 fL (7.4-10.4); PLATELET COUNT 197 K/uL (130-400); RED BLOOD COUNT 3.09 M/uL (4.7-6.1); WHITE BLOOD COUNT 6.84 K/uL (4.8-10.8)
[2017-03-11 07:32] LABS: BUN/CREATININE RATIO 11.9 (10-20); CALCIUM 8.7 mg/dl (8.5-10.1); CREATININE 2.9 mg/dl (0.60-1.40); POTASSIUM 4.1 mmol/L (3.5-5.1)
[2017-03-11] MEDS: AMLODIPINE BESYLATE 5 MG TAB PO SCH (08:22)
[2017-03-11] MEDS: PANTOprazole SOD 40 MG TAB PO SCH ×2 (08:22→20:43)
[2017-03-11] MEDS: GABAPENTIN 300 MG CAP PO SCH ×2 (08:23→20:43)
[2017-03-11] MEDS: ASPIRIN 81 MG ECTAB PO SCH (08:23)
[2017-03-11] MEDS: INSULIN ASPART 100 UNITS/ML 3 ML PEN SC SCH ×4 (08:27→20:22)
[2017-03-11] MEDS: INSULIN GLARGINE SOLOSTAR 100 UNITS/ML 3 ML PEN SC SCH ×2 (08:27→20:22)
--- NOTE | 2017-03-11 10:07 | Nephrology Progress Note ---
Nephrology Progress Note Date of Service Mar 11, 2017. Chief Complaint DL/CKD Subjective No acute events overnight. Gabe continues to feel well. He notes that shortness of breath is notably improved. He is looking forward to ambulating in the cheek today. He denied fevers or chills. No diarrhea or melena. Appetite is good. Denies abdominal pain. Review of Systems A complete review of systems was performed. Pertinent positives are noted above. All other systems are negative. Vital Signs Last 8 Hrs Date Time Temp Pulse Resp B/P (MAP) Pulse Ox O2 Delivery O2 Flow Rate FiO2 03/11/17 07:30 36.9 96 16 151/69 (96) 92 Nasal Cannula 2.0 03/11/17 06:52 87 16 93 Nasal Cannula 2.0 03/11/17 05:19 36.9 89 18 161/76 (104) 94 2.0 03/11/17 04:05 Nasal Cannula 2.0 Last Recorded Weight Weight (Kilograms): 69.000 Physical Exam General Appearance: WD/WN, no apparent distress Head: normocephalic, atraumatic Eyes: normal inspection, sclerae normal ENT: normal ENT inspection, pharynx normal Neck: supple, no JVD Respiratory/Chest: lungs clear, no respiratory distress, no accessory muscle use, + rales (improving - few scattered on R and more pronounced in left base) Cardiovascular: regular rate, rhythm, no gallop, no murmur Abdomen/GI: non tender, soft Extremities/Musculoskelatal: normal inspection, no pedal edema, + pertinent finding (R BKA) Neurologic/Psych: alert, oriented x 3 Laboratory Results Past 24 Hours 03/11/17 06:24 03/11/17 06:24 Test 03/10/17 11:33 03/10/17 16:40 03/10/17 20:23 03/11/17 06:24 Bedside Glucose 162 mg/dl (70-99) 185 mg/dl (70-99) 154 mg/dl (70-99) Red Blood Count 3.09 M/uL (4.7-6.1) Mean Corpuscular Volume 91.6 fL (80-100) Mean Corpuscular Hemoglobin 30.7 pg (25-34) Mean Corpuscular Hemoglobin Concent 33.6 g/dl (32-36) RDW Standard Deviation 44.3 fL (36.4-46.3) RDW Coefficient of Variation 13.3 % (11.5-14.5) Mean Platelet Volume 8.5 fL (7.4-10.4) Anion Gap 7.0 mmol/L (3-11) Est Creatinine Clear Calc Drug Dose 26.6 ml/min Estimated GFR () 26.8 Estimated GFR (Non- 23.1 BUN/Creatinine Ratio 11.9 (10-20) Calcium Level 8.7 mg/dl (8.5-10.1) Test 03/11/17 07:29 Bedside Glucose 148 mg/dl (70-99) Allergies Coded Allergies: No Known Allergies (Unverified , 03/07/17) Medications Current Inpatient Medications Medications (Trade) Dose Ordered Sig/Brayden Route Start Time Stop Time Status Last Admin Dose Admin Acetaminophen (Tylenol Tab) 650 mg Q4H PRN PO 03/07/17 09:30 04/06/17 09:29 Ondansetron HCl (Zofran Inj) 4 mg Q6H PRN IV 03/07/17 09:30 04/06/17 09:29 03/07/17 14:04 4 MG Polyethylene (Miralax Powder Packet) 17 gm DAILY PRN PO 03/07/17 09:30 04/06/17 09:29 Morphine Sulfate (MoRPHine SULFATE INJ) 2 mg Q4H PRN IV 03/07/17 09:30 03/21/17 09:29 03/10/17 03:10 2 MG Amlodipine Besylate (Norvasc Tab) 5 mg QAM PO 03/08/17 09:00 04/07/17 08:59 03/11/17 08:22 5 MG Hydralazine HCl (HydrALAZINE INJ) 10 mg Q4H PRN IV. 03/07/17 09:30 04/06/17 09:29 Aspirin (Ecotrin Tab) 81 mg QAM PO 03/08/17 09:00 04/07/17 08:59 03/11/17 08:23 81 MG Lorazepam (Ativan Inj) 0.5 mg Q4H PRN IV 03/07/17 09:30 04/06/17 09:29 Lorazepam (Ativan Tab) 0.5 mg Q4H PRN PO 03/07/17 09:30 04/06/17 09:29 Glucose (Glucose 40% Gel) 15-30 GRAMS 15 GRAMS... UD PRN PO 03/07/17 11:30 04/06/17 11:29 Glucose (Glucose Chew Tab) 4-8 Tablets 4 Tabl... UD PRN PO 03/07/17 11:30 04/06/17 11:29 03/08/17 06:24 4 TABS Dextrose (Dextrose 50% 50ML Syringe) 25-50ML OF 50% DW IV FOR... UD PRN IV 03/07/17 11:30 04/06/17 11:29 Glucagon (Glucagon Inj) 1 mg UD PRN SQ 03/07/17 11:30 04/06/17 11:29 Miscellaneous Information (Consult Glycemic Management Pharmacy) 1 ea UD N/A 03/07/17 12:22 04/06/17 12:21 Gabapentin (Neurontin Cap) 300 mg BID PO 03/07/17 21:00 04/06/17 20:59 03/11/17 08:23 300 MG Albuterol/ Ipratropium (Duoneb) 3 ml QIDR INH 03/07/17 16:00 04/06/17 15:59 03/11/17 06:51 3 ML Albuterol/ Ipratropium (Duoneb) 3 ml Q2H PRN INH 03/07/17 13:45 04/06/17 13:44 Levofloxacin 750 mg/Prmx 150 ml @ 100 mls/hr Q48H IV 03/07/17 14:00 03/14/17 13:59 03/09/17 13:43 100 MLS/HR Iron Sucrose 200 mg/Sodium Chloride 110 ml @ 420 mls/hr Q2D@1400 IV 03/08/17 14:00 03/16/17 14:16 03/10/17 14:30 420 MLS/HR Insulin Glargine (Lantus Solostar Pen) See Protocol Text BID SC 03/09/17 21:00 04/08/17 20:59 03/11/17 08:27 8 UNITS Insulin Aspart (novoLOG ASPART) SLIDING SCALE If C... ACHS SC 03/09/17 11:00 04/08/17 10:59 03/11/17 08:27 9 UNITS Pantoprazole Sodium (Protonix Tab) 40 mg BID PO 03/09/17 21:00 04/08/17 20:59 03/11/17 08:22 40 MG Impression (1) Hyperkalemia (2) CKD (chronic kidney disease), stage IV (3) HTN (hypertension) (4) Anemia in chronic kidney disease (5) right arm av fistula (6) Diabetes Mr. Ayala is a 57-year-old gentlemen with CKD IV, anemia, hypertension, diabetes mellitus. He was admitted to [facility] with anemia, hyperkalemia, DL and abdominal pain. CKD is attributed to diabetic nephropathy. Baseline creatinine is ~ 2.8. Proteinuria has been low grade. AV fistula was placed on 02/27/2017. Due to hyperkalemia and DL, losartan 25 daily was stopped. Hemoglobin dropped to 7.5. Prior EGD colonoscopy was around 2009. No compelling evidence of active bleeding and endoscopic evaluation on hold due to acute hypoxia. Hemoglobin now stable at 9.5. Epogen ordered for today with stable blood counts and no active signs of bleeding. CT chest w/o contrast showed pneumonia and pulmonary congestion. Gabe has been maintained in a negative fluid balance with evidence of improvement. TTE was reviewed this morning showing normal LV size and systolic function without significant valvular heart disease. Recommendations CKD: -- Renal function stable -- Metabolic profile appropriate -- Medications appropriate for renal function -- AVF with thrill and bruit, continues to mature for use Anemia: -- Epogen 10155 IU today -- Patient is receiving Venofer 200 mg QOD -- Continue to monitor -- GI evaluation once stable Acute respiratory failure: -- Suggest an additional 20 mg PO furosemide today -- Continue to maintain slightly negative fluid balance -- Treatment of COPD per primary team -- Repeat CXR from yesterday reviewed this AM Hypertension: -- BP acceptable though slightly elevated -- Expect some improvement with continued negative fluid balance -- If BP remains excessive, may increase amlodipine to 10 mg daily
[2017-03-11] MEDS ORDERED: FUROSEMIDE 20 MG TAB PO ONE (11:00)
[2017-03-11] MEDS ORDERED: EPOETIN ALFA 10,000 UNITS/ML VIAL IV ONE (12:00)
--- NOTE | 2017-03-11 13:53 | Progress Note ---
Subjective Date of Service: Mar 11, 2017. Subjective this pt is feeling better but is still requiring oxygen, typically walks for work with his prosthesis, will attempt continued diuresis and then test for oxygen Review of Systems Constitutional: + weakness, No fever, No chills Respiratory: + dyspnea on exertion, No cough, No sputum, No shortness of breath Cardiac: No chest pain, No edema, No claudication Abdomen: No pain, No nausea Objective Vital Signs Date Time Temp Pulse Resp B/P (MAP) Pulse Ox O2 Delivery O2 Flow Rate FiO2 03/11/17 12:00 37.0 103 16 137/71 (93) 92 Nasal Cannula 2.0 03/11/17 12:00 Nasal Cannula 2.0 03/11/17 11:20 91 16 95 Nasal Cannula 2.0 03/11/17 08:00 Nasal Cannula 2.0 03/11/17 07:30 36.9 96 16 151/69 (96) 92 Nasal Cannula 2.0 03/11/17 06:52 87 16 93 Nasal Cannula 2.0 03/11/17 05:19 36.9 89 18 161/76 (104) 94 2.0 03/11/17 04:05 Nasal Cannula 2.0 03/11/17 00:11 37.2 99 19 156/71 (99) 95 Nasal Cannula 2.0 03/11/17 00:05 Nasal Cannula 2.0 03/10/17 20:00 Nasal Cannula 2.0 03/10/17 19:45 37.0 97 18 143/67 (92) 94 2.0 03/10/17 19:11 100 16 92 Nasal Cannula 2.0 03/10/17 16:00 Nasal Cannula 2.0 03/10/17 15:40 37.0 106 16 156/75 (102) 94 2.0 03/10/17 14:13 88 16 92 Nasal Cannula 2.0 Physical Exam General Appearance: WD/WN, + mild distress Eyes: PERRL, EOMI Respiratory/Chest: chest non-tender, + decreased breath sounds, + rales Cardiovascular: regular rate, rhythm, + systolic murmur Abdomen: normal bowel sounds, non tender, soft Neurologic/Psychiatric: alert, oriented x 3 Laboratory Results Last 24 Hours Test 03/10/17 16:40 03/10/17 20:23 03/11/17 06:24 03/11/17 07:29 Bedside Glucose 185 mg/dl 154 mg/dl 148 mg/dl White Blood Count 6.84 K/uL Red Blood Count 3.09 M/uL Hemoglobin 9.5 g/dL Hematocrit 28.3 % Mean Corpuscular Volume 91.6 fL Mean Corpuscular Hemoglobin 30.7 pg Mean Corpuscular Hemoglobin Concent 33.6 g/dl RDW Standard Deviation 44.3 fL RDW Coefficient of Variation 13.3 % Platelet Count 197 K/uL Mean Platelet Volume 8.5 fL Sodium Level 141 mmol/L Potassium Level 4.1 mmol/L Chloride Level 108 mmol/L Carbon Dioxide Level 26 mmol/L Anion Gap 7.0 mmol/L Blood Urea Nitrogen 35 mg/dl Creatinine 2.90 mg/dl Est Creatinine Clear Calc Drug Dose 26.6 ml/min Estimated GFR () 26.8 Estimated GFR (Non- 23.1 BUN/Creatinine Ratio 11.9 Random Glucose 133 mg/dl Calcium Level 8.7 mg/dl Test 03/11/17 11:32 Bedside Glucose 156 mg/dl Assessment and Plan Mr. Ayala is a 57 year old man who transferred from [facility] with acute on chronic renal failure, anemia, hyperkalemia, abdominal pain and possible pneumonia, was found to have worsening anemia suspected to be acute blood loss from GI source and marked hypoxia with previous undiagnosed lung disease, CXR looks like pulmonary edema but Echo is with preserved EF and no mention of diastolic dysfunction. Acute on chronic renal failure with hyperkalemia- kayexalate given 03/07 and potassium normalized, fluids discontinued per nephrology's recommendation, given persistent rales will continue to attempt diuresis as Cr is stable, once we reach dry weight may consider 2 step to see if oxygen is required Pulmonary edema, may be acute diastolic heart failure, despite ckd 3 will continue to diurese Pneumonia ruled out, bronchitis pulmonary med does not feel is COPD- current smoker, levaquin 750 q 48, nebulizers, supplemental 02 pulmonary medicine is consulted Abdominal pain, no diarrhea and CT without significant changes, no significant findings on xray - protonix bid, GI consult -could not have EGD due to hypoxia HTN - with renal failure hold ARB, continue norvasc and hydralazine prn DM - labile blood sugars, pharmacy glycemic management, diabetic diet heparin discontinued due to possible bleed, SCDs for DVT prevention Code status - full resuscitation
[2017-03-11] MEDS: LEVOFLOXACIN / D5W 750 MG in PREMIXED IN D5W 150 ML IV SCH (14:21)
--- NOTE | 2017-03-11 14:40 | Pharmacy Progress Note ---
Glycemic Control Progress Note Date of Service Mar 11, 2017. Scope Glycemic Pharmacist consulted for glycemic control to write orders per [facility] inpatient glycemic control protocol. Objective Accuchecks BSG (last 24hrs): Test 03/10/17 16:40 03/10/17 20:23 03/11/17 06:24 03/11/17 07:29 Bedside Glucose 185 mg/dl (70-99) 154 mg/dl (70-99) 148 mg/dl (70-99) Random Glucose 133 mg/dl (70-99) Test 03/11/17 11:32 Bedside Glucose 156 mg/dl (70-99) HbA1c: Test 03/08/17 05:30 Hemoglobin A1c 6.4 % (4.5-5.6) H Recent Pertinent Medications The patient is currently receiving: * Basal insulin: Lantus 5-12 units every 12 hours * Correctional Insulin: Novolog Correction per scale ACHS Goal Range: Low 110 mg/dL - High 140 mg/dL Correction Factor: 20 mg/dL/unit * Prandial insulin: Per carb ratio of 1 unit per 7 grams CHO consumed Outpatient Anti-Diabetic Meds Basal Insulin Bolus Insulin Assessment & Plan ASSESSMENT: * See progress note from 03/07/17 for more background info, in short: * Pt receiving SQ basal bolus insulin regimen for hyperglycemia secondary to baseline DM (outpatient regimen on hold), stress/infection * BSGs ranging 148 - 185 g/dl over the past 24hrs * Fasting BSG this AM 148 mg/dL which is slightly above goal range * Increase Lantus scale and continue current Novolog coverage at this time PLAN FOR INPATIENT GLYCEMIC CONTROL: * Basal insulin * Lantus 5-12 units SQ BID (based on BSG) * Titrating slowly due to hypoglycemia 03/08 and 03/09 * Bolus insulin * NovoLog per scale ACHS or Q6hrs while NPO * Goal Range: Low 110 mg/dL - High 140 mg/dL * Correction Factor: 20 mg/dL/unit * Nutritional / Prandial insulin per carb ratio of 1 unit per 7 grams CHO consumed * Please note that the plan above was derived based on current level of insulin resistance and hospital stress. These recommendations are appropriate for inpatient admission only. Plan of care upon discharge will need to be reassessed to avoid potential outpatient hypo/hyperglycemia. Thank you.
--- NOTE | 2017-03-11 16:44 | PULMONARY PROGRESS NOTE ---
DATE: 03/11/2017 TIME: 04:10 p.m. SUBJECTIVE: The patient denies complaints. He denies cough or shortness of breath. Nursing staff reports that he had a room air oxygen saturation today of 93% and even with ambulation, it stayed at 93%. OBJECTIVE: GENERAL: The patient appeared comfortable. Temperature was 36.7. He was sitting in the chair. Heart rate was 100. Blood pressure 121/72. LUNGS: Lung oswald still both reveal rales posteriorly bilaterally. There are slightly decreased breath sounds at the bases, but the aeration seems better. No egophony was present. LABORATORY DATA: White count today is 6.84. Hemoglobin is 9.5. Platelets are 197,000. Electrolytes show sodium 141, potassium 4.1, chloride 108, and bicarb 26. BUN is 35 with a creatinine of 2.9. IMPRESSIONS: 1. Hypoxia -- improved. 2. Pleural effusions. 3. Cannot exclude pulmonary infiltrates versus atelectasis. COMMENTS AND RECOMMENDATIONS: The patient is clinically improved. He still has prominent rales on exam. It is unclear if this is related to volume overload from his renal disease or from may be other issues. It would be advised that the patient ultimately have pulmonary function test as an outpatient. This would help clarify if indeed he has COPD or not. He should have followup chest x-rays to assure resolution of the effusion and/or atelectasis. We will see again if requested.
[2017-03-12] VITALS (13 sets, daily range): BP systolic 132–159; BP diastolic 62–78; PULSE 88–106; TEMP 36.7–37.1; O2SAT 90–94
[2017-03-12] MEDS: MoRPHine SULFATE 2 MG/ML CARP IV PRN (00:02)
[2017-03-12 05:50] LABS: HEMATOCRIT 29.4 % (42-52); MEAN CELL VOLUME 91.6 fL (80-100); MEAN CORPUSCULAR HEMOGLOBIN 31.2 pg (25-34); MEAN PLATELET VOLUME 8.4 fL (7.4-10.4); PLATELET COUNT 194 K/uL (130-400); RED BLOOD COUNT 3.21 M/uL (4.7-6.1); WHITE BLOOD COUNT 8.15 K/uL (4.8-10.8)
[2017-03-12 06:17] LABS: BUN/CREATININE RATIO 12.5 (10-20); CALCIUM 8.5 mg/dl (8.5-10.1); CREATININE 3.1 mg/dl (0.60-1.40); POTASSIUM 4.1 mmol/L (3.5-5.1)
[2017-03-12] MEDS: ALBUT/IPRATROP 3MG/0.5MG NEB 3 ML VIAL INH SCH ×4 (07:04→18:59)
[2017-03-12] MEDS: AMLODIPINE BESYLATE 5 MG TAB PO SCH (08:21)
[2017-03-12] MEDS: ASPIRIN 81 MG ECTAB PO SCH (08:21)
[2017-03-12] MEDS: PANTOprazole SOD 40 MG TAB PO SCH ×2 (08:21→21:13)
[2017-03-12] MEDS: GABAPENTIN 300 MG CAP PO SCH ×2 (08:22→21:13)
[2017-03-12] MEDS: INSULIN GLARGINE SOLOSTAR 100 UNITS/ML 3 ML PEN SC SCH ×2 (08:25→21:20)
[2017-03-12] MEDS: INSULIN ASPART 100 UNITS/ML 3 ML PEN SC SCH ×4 (08:26→21:19)
--- NOTE | 2017-03-12 08:38 | Hospitalist Progress Note ---
Hospitalist Progress Note Date of Service Mar 12, 2017. (Gracia Maguire PA-C) Subjective Pt evaluation today including: conversation w/ patient, physical exam, chart review, lab review, review of studies Pain: none PO Intake: good Voiding: no voiding problems The patient was seen and examined this morning. Pt reports doing well today, he is anxious to get home. Pt reports his breathing improved, no shortness of breath at rest or on exertion. He was ambulating the hallways earlier today without any difficulty. Constitutional: No fever, No chills, No sweats Eyes: No redness, No diplopia ENT: No nasal symptoms, No trouble swallowing Respiratory: No cough, No sputum, No wheezing, No shortness of breath, No dyspnea on exertion Cardiovascular: No chest pain, No palpitations Abdomen: + constipation (last BM 3 days ago), No pain, No nausea, No vomiting, No diarrhea Musculoskeletal: No joint pain, No muscle pain, No swelling Male : No dysuria Neurologic: No weakness, No numbness/tingling Endo: No fatigue Skin: No rash, No itch (Gracia Maguire PA-C) Objective Vital Signs Date Time Temp Pulse Resp B/P (MAP) Pulse Ox O2 Delivery O2 Flow Rate FiO2 03/12/17 07:48 37.0 100 20 151/66 (94) 90 Room Air 03/12/17 07:04 95 18 92 Room Air 03/12/17 04:05 Nasal Cannula 2.0 03/12/17 03:24 37.1 103 16 136/62 (86) 90 Room Air 03/12/17 00:13 37.1 106 18 157/69 (98) 93 Room Air 03/12/17 00:05 Nasal Cannula 2.0 03/11/17 20:07 88 18 94 Room Air 2.0 03/11/17 20:05 Nasal Cannula 2.0 03/11/17 16:00 Nasal Cannula 2.0 03/11/17 15:53 36.7 101 18 121/72 (88) 95 2.0 03/11/17 14:41 92 16 96 Nasal Cannula 2.0 03/11/17 12:00 37.0 103 16 137/71 (93) 92 Nasal Cannula 2.0 03/11/17 12:00 Nasal Cannula 2.0 03/11/17 11:20 91 16 95 Nasal Cannula 2.0 (Gracia Maguire PA-C) Physical Exam General Appearance: WD/WN, no apparent distress, + pertinent finding (appears older than stated age) Eyes: PERRL, EOMI ENT: hearing grossly normal, pharynx normal, + pertinent finding (MMM) Neck: supple, no JVD Respiratory/Chest: chest non-tender, no respiratory distress, no accessory muscle use, + pertinent finding (on Room air, + faint crackles in RML RLL and LLL.) Cardiovascular: regular rate, rhythm, no murmur Abdomen: normal bowel sounds, non tender, soft Extremities: non-tender, no pedal edema, no calf tenderness, + pertinent finding (+R BKA, R AVF with +thrill and bruit) Neurologic/Psychiatric: alert, normal mood/affect, oriented x 3 Skin: normal color, warm/dry (Gracia Maguire, AJITH) Laboratory Results Last 24 Hours Test 03/11/17 11:32 03/11/17 16:38 03/11/17 20:08 03/12/17 05:19 Bedside Glucose 156 mg/dl 147 mg/dl 78 mg/dl White Blood Count 8.15 K/uL Red Blood Count 3.21 M/uL Hemoglobin 10.0 g/dL Hematocrit 29.4 % Mean Corpuscular Volume 91.6 fL Mean Corpuscular Hemoglobin 31.2 pg Mean Corpuscular Hemoglobin Concent 34.0 g/dl RDW Standard Deviation 44.3 fL RDW Coefficient of Variation 13.4 % Platelet Count 194 K/uL Mean Platelet Volume 8.4 fL Sodium Level 141 mmol/L Potassium Level 4.1 mmol/L Chloride Level 106 mmol/L Carbon Dioxide Level 26 mmol/L Anion Gap 9.0 mmol/L Blood Urea Nitrogen 39 mg/dl Creatinine 3.10 mg/dl Est Creatinine Clear Calc Drug Dose 24.9 ml/min Estimated GFR () 24.7 Estimated GFR (Non- 21.3 BUN/Creatinine Ratio 12.5 Random Glucose 148 mg/dl Calcium Level 8.5 mg/dl Test 03/12/17 07:40 Bedside Glucose 149 mg/dl (Gracia Maguire PA-C) Assessment and Plan Mr. Ayala is a 57 year old man who transferred from [facility] with acute on chronic renal failure, anemia, hyperkalemia, abdominal pain and possible pneumonia, was found to have worsening anemia suspected to be acute blood loss from GI source and marked hypoxia with previous undiagnosed lung disease, CXR looks like pulmonary edema but Echo is with preserved EF and no mention of diastolic dysfunction. Acute on chronic renal failure with hyperkalemia - kayexalate given 03/07 and potassium normalized -fluids discontinued per nephrology's recommendation - faint rales on exam today, Cr is stable, today 3.1, baseline of 2.8 - will plan on Lasix 20 mg PO tomorrow am - likely will need outpatient 20 mg QOD dosing per nephrology. - Right AVF placed on 02/27/17 +thrill and bruit, maturing for future use - Appreciate nephrology recs Pulmonary edema - may be from acute diastolic heart failure or from poor renal function, despite ckd 3 will continue to diurese prn Bronchitis (Pneumonia ruled out) - pulmonary med does not feel is COPD- current smoker, levaquin 750 q 48, nebulizers, supplemental 02 pulmonary medicine is consulted - BCx NGTD Anemia - Hgb appears stable at 10.0, follow am labs - Epogen 30768 IU given yesterday, Cont Venofer 200 mg QOD - GI on board- will await recs regarding colonoscopy for GI workup -appreciate - May require outpatient 2 step as above. Abdominal pain - no diarrhea and CT without significant changes, no significant findings on xray - protonix bid, GI consult -could not have EGD due to hypoxia HTN - with renal failure hold ARB, continue norvasc and hydralazine prn DM - labile blood sugars, pharmacy glycemic management, diabetic diet DVT ppx: heparin discontinued due to possible bleed, SCDs for DVT prevention CODE STATUS: FULL CODE Disposition: From home, discharge possible in 1 day. (Gracia Maguire PA-C) Attending Attestation: Pt seen/examined, chart reviewed, care plan d/w SUGAR Maguire. I agree w/ the jones components of her documentation. Pt "feels good" Denies dyspnea mild cough only VSS no fever gen - nad neck - no obvious JVD heart - RRR lungs - mild fine, dry rales right base only ow CTA b/l abd - soft ext - RUE AV fistula present; incision clean right BKA left leg w/o edema A/P: 1. acute/chronic renal failure - acute component resolved 2. hyperkalemia 2nd to #1 - resolved 3. acute/chronic diastolic CHF - acute component resolved on lasix - management per nephrology likely d/c tomorrow recheck BMP in am for stability Jarvis Landon MD (Jarvis Landon MD)
--- NOTE | 2017-03-12 09:16 | Nephrology Progress Note ---
Nephrology Progress Note Date of Service Mar 12, 2017. Chief Complaint DL/CKD Subjective No acute events overnight. No complaints this morning. Gabe denies dyspnea. He was ambulating in the cheek yesterday without difficulty. He denies lightheadedness or dizziness. He denies chest pain or palpitations. Activity tolerance is reasonable. Using ISB every 3-4 hours. Review of Systems A complete review of systems was performed. Pertinent positives are noted above. All other systems are negative. Vital Signs Last 8 Hrs Date Time Temp Pulse Resp B/P (MAP) Pulse Ox O2 Delivery O2 Flow Rate FiO2 03/12/17 08:00 Nasal Cannula 2.0 03/12/17 07:48 37.0 100 20 151/66 (94) 90 Room Air 03/12/17 07:04 95 18 92 Room Air 03/12/17 04:05 Nasal Cannula 2.0 03/12/17 03:24 37.1 103 16 136/62 (86) 90 Room Air Last Recorded Weight Weight (Kilograms): 69.000 Physical Exam General Appearance: WD/WN, no apparent distress Head: normocephalic, atraumatic Eyes: normal inspection, sclerae normal ENT: normal ENT inspection, pharynx normal Neck: supple, no JVD Respiratory/Chest: no respiratory distress, no accessory muscle use, + rales ( bibasilar) Cardiovascular: regular rate, rhythm, no gallop, no murmur Abdomen/GI: non tender, soft Extremities/Musculoskelatal: normal inspection, no pedal edema, + pertinent finding (R BKA) Neurologic/Psych: alert, normal mood/affect Laboratory Results Past 24 Hours 03/12/17 05:19 03/12/17 05:19 Test 03/11/17 11:32 03/11/17 16:38 03/11/17 20:08 03/12/17 05:19 Bedside Glucose 156 mg/dl (70-99) 147 mg/dl (70-99) 78 mg/dl (70-99) Red Blood Count 3.21 M/uL (4.7-6.1) Mean Corpuscular Volume 91.6 fL (80-100) Mean Corpuscular Hemoglobin 31.2 pg (25-34) Mean Corpuscular Hemoglobin Concent 34.0 g/dl (32-36) RDW Standard Deviation 44.3 fL (36.4-46.3) RDW Coefficient of Variation 13.4 % (11.5-14.5) Mean Platelet Volume 8.4 fL (7.4-10.4) Anion Gap 9.0 mmol/L (3-11) Est Creatinine Clear Calc Drug Dose 24.9 ml/min Estimated GFR () 24.7 Estimated GFR (Non- 21.3 BUN/Creatinine Ratio 12.5 (10-20) Calcium Level 8.5 mg/dl (8.5-10.1) Test 03/12/17 07:40 Bedside Glucose 149 mg/dl (70-99) Allergies Coded Allergies: No Known Allergies (Unverified , 03/07/17) Medications Current Inpatient Medications Medications (Trade) Dose Ordered Sig/Brayden Route Start Time Stop Time Status Last Admin Dose Admin Acetaminophen (Tylenol Tab) 650 mg Q4H PRN PO 03/07/17 09:30 04/06/17 09:29 Ondansetron HCl (Zofran Inj) 4 mg Q6H PRN IV 03/07/17 09:30 04/06/17 09:29 03/07/17 14:04 4 MG Polyethylene (Miralax Powder Packet) 17 gm DAILY PRN PO 03/07/17 09:30 04/06/17 09:29 Morphine Sulfate (MoRPHine SULFATE INJ) 2 mg Q4H PRN IV 03/07/17 09:30 03/21/17 09:29 03/12/17 00:02 2 MG Amlodipine Besylate (Norvasc Tab) 5 mg QAM PO 03/08/17 09:00 04/07/17 08:59 03/12/17 08:21 5 MG Hydralazine HCl (HydrALAZINE INJ) 10 mg Q4H PRN IV. 03/07/17 09:30 04/06/17 09:29 Aspirin (Ecotrin Tab) 81 mg QAM PO 03/08/17 09:00 04/07/17 08:59 03/12/17 08:21 81 MG Lorazepam (Ativan Inj) 0.5 mg Q4H PRN IV 03/07/17 09:30 04/06/17 09:29 Lorazepam (Ativan Tab) 0.5 mg Q4H PRN PO 03/07/17 09:30 04/06/17 09:29 Glucose (Glucose 40% Gel) 15-30 GRAMS 15 GRAMS... UD PRN PO 03/07/17 11:30 04/06/17 11:29 Glucose (Glucose Chew Tab) 4-8 Tablets 4 Tabl... UD PRN PO 03/07/17 11:30 04/06/17 11:29 03/08/17 06:24 4 TABS Dextrose (Dextrose 50% 50ML Syringe) 25-50ML OF 50% DW IV FOR... UD PRN IV 03/07/17 11:30 04/06/17 11:29 Glucagon (Glucagon Inj) 1 mg UD PRN SQ 03/07/17 11:30 04/06/17 11:29 Miscellaneous Information (Consult Glycemic Management Pharmacy) 1 ea UD N/A 03/07/17 12:22 04/06/17 12:21 Gabapentin (Neurontin Cap) 300 mg BID PO 03/07/17 21:00 04/06/17 20:59 03/12/17 08:22 300 MG Albuterol/ Ipratropium (Duoneb) 3 ml QIDR INH 03/07/17 16:00 04/06/17 15:59 03/12/17 07:04 3 ML Albuterol/ Ipratropium (Duoneb) 3 ml Q2H PRN INH 03/07/17 13:45 04/06/17 13:44 Levofloxacin 750 mg/Prmx 150 ml @ 100 mls/hr Q48H IV 03/07/17 14:00 03/14/17 13:59 03/11/17 14:21 100 MLS/HR Iron Sucrose 200 mg/Sodium Chloride 110 ml @ 420 mls/hr Q2D@1400 IV 03/08/17 14:00 03/16/17 14:16 03/10/17 14:30 420 MLS/HR Insulin Glargine (Lantus Solostar Pen) See Protocol Text BID SC 03/09/17 21:00 04/08/17 20:59 03/12/17 08:25 8 UNITS Insulin Aspart (novoLOG ASPART) SLIDING SCALE If C... ACHS SC 03/09/17 11:00 04/08/17 10:59 03/12/17 08:26 9 UNITS Pantoprazole Sodium (Protonix Tab) 40 mg BID PO 03/09/17 21:00 04/08/17 20:59 03/12/17 08:21 40 MG Impression (1) Hyperkalemia (2) CKD (chronic kidney disease), stage IV (3) HTN (hypertension) (4) Anemia in chronic kidney disease (5) right arm av fistula (6) Diabetes Mr. Ayala is a 57-year-old gentlemen with CKD IV, anemia, hypertension, diabetes mellitus. He was admitted to [facility] with anemia, hyperkalemia, DL and abdominal pain. CKD is attributed to diabetic nephropathy. Baseline creatinine is ~ 2.8. Proteinuria has been low grade. AV fistula was placed on 02/27/2017. Due to hyperkalemia and DL, losartan 25 daily was stopped. Hemoglobin dropped to 7.5. Prior EGD colonoscopy performed in 2009. No compelling evidence of active bleeding and endoscopic evaluation on hold due to acute hypoxia. Hemoglobin now stable. Epogen given on 03/11. CT chest w/o contrast showed pneumonia and pulmonary congestion. Gabe has been maintained in a negative fluid balance with evidence of improvement. TTE was reviewed this morning showing normal LV size and systolic function without significant valvular heart disease. Recommendations CKD: -- Renal function stable -- Metabolic profile appropriate -- Medications appropriate for renal function -- AVF with thrill and bruit, continues to mature for use Anemia: -- Stable blood counts -- Epogen 09789 IU given yesterday -- Patient is receiving Venofer 200 mg QOD -- Continue to monitor -- GI evaluation once stable Acute respiratory failure: -- Basilar rales persist and do not clear with cough -- Clinically patient has significantly improved -- Suggest continuing low dose of loop diuretic with a goal to maintain an even to slightly negative fluid balance (~10 mg daily or 20 mg QOD for now) -- Pulmonary note reviewed today Hypertension: -- BP remains acceptable though slightly elevated -- Expect some improvement with continued negative fluid balance -- If BP remains excessive, may increase amlodipine to 10 mg daily
--- NOTE | 2017-03-12 11:04 | Pharmacy Progress Note ---
Glycemic: Assessment & Plan Date of Service Mar 12, 2017. Assessment & Plan The patient is currently receiving ~ 40 units of insulin per day. BSGs ranging 78 - 156 mg/dl over the past 24hrs. * Basal insulin: Lantus 5-8 units every 12 hours based on BSG * Correctional Insulin: Novolog Correction per scale ACHS Goal Range: Low 110 mg/dL - High 140 mg/dL Correction Factor: 20 mg/dL/unit * Prandial insulin: Per carb ratio of 1 unit per 7 grams CHO consumed BSGs continue to improve, no changes needed to inpatient regimen at this time. Pharmacy will continue to monitor patient daily and write orders per [facility] inpatient glycemic control protocol. Thanks. * Please note that the plan above was derived based on current level of insulin resistance and hospital stress. These recommendations are appropriate for inpatient admission only. Plan of care upon discharge will need to be reassessed to avoid potential outpatient hypo/hyperglycemia.
[2017-03-12] MEDS: POLYETHYLENE (MIRALAX) 17 GM PACK PO PRN (14:09)
[2017-03-12] MEDS: IRON SUCROSE INJ 200 MG in SODIUM CHLORIDE 0.9% 100ML 100 ML IV SCH (14:14)
[2017-03-13] MEDS: MoRPHine SULFATE 2 MG/ML CARP IV PRN (01:11)
[2017-03-13 03:55] VITALS: BP 148/74; PULSE 87; TEMP 37; O2SAT 92
[2017-03-13 07:08] VITALS: PULSE 92; O2SAT 91
[2017-03-13] MEDS: ALBUT/IPRATROP 3MG/0.5MG NEB 3 ML VIAL INH SCH ×2 (07:08→11:18)
[2017-03-13 07:52] VITALS: BP 163/78; PULSE 93; TEMP 36.9
[2017-03-13] MEDS: GABAPENTIN 300 MG CAP PO SCH (08:02)
[2017-03-13] MEDS: ASPIRIN 81 MG ECTAB PO SCH (08:02)
[2017-03-13] MEDS: AMLODIPINE BESYLATE 5 MG TAB PO SCH (08:02)
[2017-03-13] MEDS: PANTOprazole SOD 40 MG TAB PO SCH (08:02)
[2017-03-13] MEDS: INSULIN ASPART 100 UNITS/ML 3 ML PEN SC SCH ×2 (08:07→12:37)
[2017-03-13] MEDS: POLYETHYLENE (MIRALAX) 17 GM PACK PO PRN (08:15)
[2017-03-13] MEDS ORDERED: INSULIN GLARGINE SOLOSTAR 100 UNITS/ML 3 ML PEN SC SCH (09:00)
[2017-03-13] MEDS ORDERED: FUROSEMIDE 20 MG TAB PO SCH (09:00)
[2017-03-13 09:03] LABS: BUN/CREATININE RATIO 12.5 (10-20); CALCIUM 9.1 mg/dl (8.5-10.1); CREATININE 3.3 mg/dl (0.60-1.40); PHOSPHORUS 3.6 mg/dl (2.5-4.9); POTASSIUM 4.3 mmol/L (3.5-5.1)
--- NOTE | 2017-03-13 10:52 | Nephrology Progress Note ---
Nephrology Progress Note Date of Service Mar 13, 2017. Chief Complaint DL/CKD Subjective No acute event overnight. No complaints this morning. Ambulating in the cheek without difficulty. Denies shortness of breath. No fevers or chills. Appetite good. Voiding urine without difficulty. Review of Systems A complete review of systems was performed. Pertinent positives are noted above. All other systems are negative. Vital Signs Last 8 Hrs Date Time Temp Pulse Resp B/P (MAP) Pulse Ox O2 Delivery O2 Flow Rate FiO2 03/13/17 08:00 Nasal Cannula 2.0 03/13/17 07:52 36.9 93 18 163/78 (106) 03/13/17 07:08 92 16 91 Room Air 03/13/17 04:05 Room Air 03/13/17 03:55 37.0 87 18 148/74 (98) 92 Room Air Last Recorded Weight Weight (Kilograms): 72.400 Physical Exam General Appearance: WD/WN, no apparent distress Head: normocephalic, atraumatic Eyes: normal inspection, sclerae normal ENT: normal ENT inspection, pharynx normal Neck: supple, no JVD Respiratory/Chest: no respiratory distress, no accessory muscle use, + rales ( improving) Cardiovascular: regular rate, rhythm, no gallop, no murmur Abdomen/GI: non tender, soft Extremities/Musculoskelatal: normal inspection, no pedal edema Neurologic/Psych: alert, oriented x 3 Laboratory Results Past 24 Hours 03/13/17 08:25 Test 03/12/17 11:32 03/12/17 16:21 03/12/17 21:02 03/13/17 07:36 Bedside Glucose 117 mg/dl (70-99) 209 mg/dl (70-99) 151 mg/dl (70-99) 168 mg/dl (70-99) Test 03/13/17 08:25 Anion Gap 10.0 mmol/L (3-11) Est Creatinine Clear Calc Drug Dose 23.4 ml/min Estimated GFR () 22.9 Estimated GFR (Non- 19.8 BUN/Creatinine Ratio 12.5 (10-20) Calcium Level 9.1 mg/dl (8.5-10.1) Phosphorus Level 3.6 mg/dl (2.5-4.9) Albumin 3.2 gm/dl (3.4-5.0) Allergies Coded Allergies: No Known Allergies (Unverified , 03/07/17) Medications Current Inpatient Medications Medications (Trade) Dose Ordered Sig/Brayden Route Start Time Stop Time Status Last Admin Dose Admin Acetaminophen (Tylenol Tab) 650 mg Q4H PRN PO 03/07/17 09:30 04/06/17 09:29 Ondansetron HCl (Zofran Inj) 4 mg Q6H PRN IV 03/07/17 09:30 04/06/17 09:29 03/07/17 14:04 4 MG Polyethylene (Miralax Powder Packet) 17 gm DAILY PRN PO 03/07/17 09:30 04/06/17 09:29 03/13/17 08:15 17 GM Morphine Sulfate (MoRPHine SULFATE INJ) 2 mg Q4H PRN IV 03/07/17 09:30 03/21/17 09:29 03/13/17 01:11 2 MG Amlodipine Besylate (Norvasc Tab) 5 mg QAM PO 03/08/17 09:00 04/07/17 08:59 03/13/17 08:02 5 MG Hydralazine HCl (HydrALAZINE INJ) 10 mg Q4H PRN IV. 03/07/17 09:30 04/06/17 09:29 Aspirin (Ecotrin Tab) 81 mg QAM PO 03/08/17 09:00 04/07/17 08:59 03/13/17 08:02 81 MG Lorazepam (Ativan Inj) 0.5 mg Q4H PRN IV 03/07/17 09:30 04/06/17 09:29 Lorazepam (Ativan Tab) 0.5 mg Q4H PRN PO 03/07/17 09:30 04/06/17 09:29 Glucose (Glucose 40% Gel) 15-30 GRAMS 15 GRAMS... UD PRN PO 03/07/17 11:30 04/06/17 11:29 Glucose (Glucose Chew Tab) 4-8 Tablets 4 Tabl... UD PRN PO 03/07/17 11:30 04/06/17 11:29 03/08/17 06:24 4 TABS Dextrose (Dextrose 50% 50ML Syringe) 25-50ML OF 50% DW IV FOR... UD PRN IV 03/07/17 11:30 04/06/17 11:29 Glucagon (Glucagon Inj) 1 mg UD PRN SQ 03/07/17 11:30 04/06/17 11:29 Miscellaneous Information (Consult Glycemic Management Pharmacy) 1 ea UD N/A 03/07/17 12:22 04/06/17 12:21 Gabapentin (Neurontin Cap) 300 mg BID PO 03/07/17 21:00 04/06/17 20:59 03/13/17 08:02 300 MG Albuterol/ Ipratropium (Duoneb) 3 ml QIDR INH 03/07/17 16:00 04/06/17 15:59 03/13/17 07:08 3 ML Albuterol/ Ipratropium (Duoneb) 3 ml Q2H PRN INH 03/07/17 13:45 04/06/17 13:44 Iron Sucrose 200 mg/Sodium Chloride 110 ml @ 420 mls/hr Q2D@1400 IV 03/08/17 14:00 03/16/17 14:16 03/12/17 14:14 420 MLS/HR Insulin Aspart (novoLOG ASPART) SLIDING SCALE If C... ACHS SC 03/09/17 11:00 04/08/17 10:59 03/13/17 08:07 12 UNITS Pantoprazole Sodium (Protonix Tab) 40 mg BID PO 03/09/17 21:00 04/08/17 20:59 03/13/17 08:02 40 MG Furosemide (Lasix Tab) 20 mg QAM PO 03/13/17 09:00 04/12/17 08:59 03/13/17 08:03 20 MG Insulin Glargine (Lantus Solostar Pen) 7 units BID SC 03/13/17 09:00 04/12/17 08:59 03/13/17 08:08 7 UNITS Levofloxacin (Levaquin Tab) 750 mg Q2D@1400 PO 03/13/17 14:00 03/14/17 13:59 Impression (1) Hyperkalemia (2) CKD (chronic kidney disease), stage IV (3) HTN (hypertension) (4) Anemia in chronic kidney disease (5) right arm av fistula (6) Diabetes Mr. Ayala is a 57-year-old gentlemen with CKD IV, anemia, hypertension, diabetes mellitus. He was admitted to [facility] with anemia, hyperkalemia, DL and abdominal pain. CKD is attributed to diabetic nephropathy. Baseline creatinine is ~ 2.8. Proteinuria has been low grade. AV fistula was placed on 02/27/2017. Due to hyperkalemia and DL, losartan 25 daily was stopped. Hemoglobin dropped to 7.5. Prior EGD colonoscopy performed in 2009. No compelling evidence of active bleeding and endoscopic evaluation on hold due to acute hypoxia. Hemoglobin now stable. Epogen given on 03/11. CT chest w/o contrast showed pneumonia and pulmonary congestion. Gabe has been maintained in a negative fluid balance with evidence of improvement. TTE was reviewed this morning showing normal LV size and systolic function without significant valvular heart disease. Recommendations CKD: -- Renal function stable -- Metabolic profile appropriate -- Medications appropriate for renal function -- AVF with thrill and bruit, continues to mature for use -- Please have patient follow up with a metabolic profile within 1 week of discharge (results can be faxed to [phone]) -- Outpatient follow up to be arranged with Dr. Rodríguez within 2 weeks of discharge Anemia: -- Stable blood counts -- Epogen 67027 IU given on 03/11 -- Patient is receiving Venofer 200 mg QOD -- Continue to monitor -- GI evaluation once stable Acute respiratory failure: -- Basilar rales improving -- Clinically patient has significantly improved -- Suggest continuing low dose of loop diuretic with a goal to maintain an even to slightly negative fluid balance (~20 mg daily) -- Pulmonary note reviewed today Hypertension: -- BP remains acceptable though slightly elevated -- Expect some improvement with continued negative fluid balance -- If BP remains excessive, may increase amlodipine to 10 mg daily
[2017-03-13 11:18] VITALS: PULSE 90; O2SAT 95
[2017-03-13 11:24] VITALS: BP 129/70; PULSE 84; TEMP 36.9; O2SAT 93
[2017-03-13] MEDS ORDERED: NRV5 PO (11:33)
[2017-03-13] MEDS ORDERED: MRLP17X PO (11:33)
--- NOTE | 2017-03-13 11:34 | Discharge Instructions ---
Discharge Instructions Date of Service Mar 13, 2017. Admission Reason for Admission: Abdominal Pain, Anemia Discharge Discharge Diagnosis / Problem: Acute on chronic renal failure with hyperkalemia , Anemia Discharge Goals Goal(s): Decrease discomfort, Improve function, Increase independence, Improve disease control Activity Recommendations Activity Limitations: resume your previous activity Lifting Limitations: no more than 25 pounds, gradually increase as tolerated Exercise/Sports Limitations: gradually increase as tolerated May Resume Sexual Activity: when tolerated Shower/Bathe: no limitations Driving or Machine Use: Resume after seen by PCP . Instructions / Follow-Up Instructions / Follow-Up You were admitted to [facility] with abdominal pain and diagnosed with Acute on chronic renal failure with hyperkalemia, causing worsenign shortness of breath, and anemia from gastrointestinal bleed. During your stay here you were treated with intravenous diuretics (lasix), antibiotics, and other medications for supportive care. Medications: Continue taking lasix every other day as directed, start on 03/15 in the morning. Continue taking Amlodipine 5 mg daily. STOP losartan due to your renal function. You should follow up with your PCP regarding blood pressure and if medications need changed. Continue taking Tujeo as prescribed. Please check your blood glucose regularly with meals and before bedtime until seen by your PCP. Appointments: Follow up with your Primary Care Provider within 1 week, appointment has been requested. Follow up with GI within 1-2 weeks to assess for outpatient colonoscopy to further workup anemia etiology. Follow up with Nephrology, Dr. Chapman on Sunday, Mar 19 at 2:30 pm. Have blood work drawn on 03/16 to check a chemistry panel. Current Hospital Diet Patient's current hospital diet: Diabetes Type 2 Diet Discharge Diet Recommended Diet: Diabetes Type 2 Diet Pending Studies Studies pending at discharge: no Laboratory Results Hemoglobin A1c Test 03/08/17 05:30 Range/Units Estimated Average Glucose 137 mg/dl Hemoglobin A1c 6.4 H 4.5-5.6 % Medical Emergencies . Who to Call and When: Medical Emergencies: If at any time you feel your situation is an emergency, please call 911 immediately. . Non-Emergent Contact Non-Emergency issues call your: Primary Care Provider Call Non-Emergent contact if: you have a fever, temperature is above 100.5, your pain is not controlled, you have any medication questions other concerns with your health. Call 911 or go directly to the Emergency Department if you experience any of the following: Chest pain, chest tightness, shortness of breath, abdominal pain , lightheadedness, dizziness, gastrointestinal bleeding, or have any other concerns regarding your health. . Past History Medical & Surgical History: (1) Hyperkalemia (2) Abdominal pain (3) Diabetes (4) HTN (hypertension) (5) Anemia in chronic kidney disease (6) CKD (chronic kidney disease), stage IV (7) right arm av fistula (8) rle amputation . "Provider Documentation" section prepared by Angela Maguire. --------- Attending Attestation: Pt seen/examined and discharge care plan d/w PA Angela Maguire. I agree w/ the jones components of her discharge instructions. Jarvis Landon MD . VTE Core Measure Inpt VTE Proph given/why not?: T.ERob Stockings, SCD's
[2017-03-13] MEDS ORDERED: BISACODYL 10 MG SUPP PR STA (11:42)
[2017-03-13] MEDS ORDERED: FURO-85 PO (11:46)
[2017-03-13] MEDS ORDERED: AMLO-110 PO (11:46)
[2017-03-13] MEDS ORDERED: BISACODYL 10 MG SUPP ONE (11:57)
--- NOTE | 2017-03-13 13:07 | Discharge Summary ---
Discharge Summary Date of Service Mar 13, 2017. (Gracia Maguire, AJITH) Discharge Summary Admission Date: Mar 07, 2017 at 09:55 Discharge Date: Mar 13, 2017 Discharge Disposition: Home Principal Diagnosis: Acute on chronic renal failure with hyperkalemia, abdominal pain Problems/Secondary Diagnoses: CKD stage III-IV Hyperkalemia Pulmonary edema Bronchitis Anemia - possibly secondary to GI source Abdominal pain HTN DM II Procedures: ABDOMEN 2VIEW W/PA CHEST RTN CLINICAL HISTORY: eval for constipation pain. Constipation. COMPARISON STUDY: No previous studies for comparison. FINDINGS: Mild nonspecific interstitial edema of the lungs. Diaphragms are smooth. No evidence for cardiac enlargement. Bowel pattern is considered nonobstructive. There is mild radiopaque contrast within the a sending colon. Moderate fecal load within the a sending transverse colonic region. No evidence for fecal impaction. IMPRESSION: 1. No evidence for fecal impaction. 2. Mild increase in fecal load within the a sending and transverse colonic regions. 3. Nonobstructive bowel pattern. 4. Mild interstitial edema of the chest. The above report was generated using voice recognition software. It may contain grammatical, syntax or spelling errors. Electronically signed by: Jalil Diamond M.D. 03/07/2017 1:56 PM Dictated Date/Time: 03/07/2017 1:54 PM The status of this report is Signed. [~ rep ct add3]] (CHEST) THORAX WITHOUT CLINICAL HISTORY: 57 years-old Male presenting with eval for pneumonia, pt with marked hypoxia and elev Cr. TECHNIQUE: Multidetector CT imaging of the chest was performed without the use of intravenous contrast. IV contrast: None. A dose lowering technique was used consistent with the principles of ALARA (as low as reasonably achievable). COMPARISON: Chest x-ray performed the previous day. CT DOSE (mGy.cm): The estimated cumulative dose is 392.32 mGy.cm. 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 On soft tissue windows, normal thyroid and thoracic inlet. Bilateral gynecomastia. Multiple subcentimeter mediastinal lymph nodes, possibly reactive. Evaluation of the julio cesar is limited without intravenous contrast. Normal aorta. Prominence of the left atrium. Minimal coronary artery and aortic valve calcification. The intraventricular blood pool is less dense than the adjacent myocardium. Trace pericardial effusion. Moderate bilateral pleural effusions. Upper abdomen normal. On lung windows, extensive dependent opacities, some of which likely represents passive atelectasis, however, dependent groundglass and more solid consolidation also noted in the bilateral upper lobes. Patchy groundglass opacities in the upper lobes. Interlobular septal thickening noted at the apices and lung bases. Bronchial wall thickening. Airways patent. On bone windows, mild degenerative changes of the thoracic spine. IMPRESSION: 1. A combination of dependent and patchy opacities could be consistent with an infectious etiology. However, given the presence of intralobular septal thickening and bilateral moderate pleural effusions, a component of pulmonary edema is also suspected. Electronically signed by: Femi Roberts M.D. 03/08/2017 6:11 PM Dictated Date/Time: 03/08/2017 6:03 PM The status of this report is Signed. [~ rep ct add3]] CHEST ONE VIEW PORTABLE HISTORY: Short of breath. COMPARISON: Chest 03/07/2017. FINDINGS: Mild pulmonary edema, mild cardiomegaly, and small bilateral pleural effusions have slightly improved. No new focal lung consolidations. No pneumothorax. IMPRESSION: Slight improvement in the mild pulmonary edema and small bilateral pleural effusions. Electronically signed by: Hans Echeverria M.D. 03/10/2017 2:18 PM Dictated Date/Time: 03/10/2017 2:17 PM The status of this report is Signed. Consultations: GI Pulm Nephro (Gracia Maguire, AJITH) Problems/Secondary Diagnoses: PAD right BKA status Procedures: echocardiogram: -- Conclusions -- Left ventricular systolic function is normal. No regional wall motion abnormalities noted. Ejection Fraction = 60-65%. No significant valvular pathology. (Jarvis Landon MD) Medication Reconciliation New Medications: Furosemide (Lasix) 20 Mg Tab 1 TAB PO Q2D for 30 Days, #15 TAB 0 Refills Amlodipine Besylate (Amlodipine Besylate) 5 Mg Tab 5 MG PO QAM for 30 Days, #30 TAB Polyethylene (Miralax) 17 Gm Pow 17 GM PO DAILY PRN for Constipation for 30 Days, #30 DOSE Continued Medications: Ascorbic Acid (Vitamin C 500 mg) 1 Chw Chw 500 MG OR BID Aspirin (Aspirin Ec) 81 Mg Tab 81 MG PO DAILY Ferrous Sulfate (Kp Ferrous Sulfate) 325 Mg Tab 1 TAB PO BID for 30 Days, #60 TAB 3 Refills Gabapentin (Neurontin) 300 Mg Cap 1200 MG PO TID, CAP Insulin Glargine (Toujeo Solostar) 300 Unit/Ml Inj 45 SQ DAILY Insulin Human Lispro (Humalog) 1 Ea Inj 8 SQ AC for blood sugar coverage Pantoprazole (Protonix) 40 Mg Tab 40 MG PO DAILY, #30 TAB Discontinued Medications: Amlodipine (Norvasc) 5 Mg Tab 5 MG PO DAILY for 30 Days, #30 TAB Losartan Potassium (Cozaar) 50 Mg Tab 50 MG PO DAILY, TAB Discharge Exam The patient was seen and examined this morning. Pt reports doing well today and is anticipating discharge home. He has no acute complaints. Pt has been ambulating the halls without difficulty, breathing is improved. His bowels have not moved for 4 days now, but tolerating a normal diet. Review of Systems: Constitutional: No fever, No chills, No sweats Eyes: No worsening of vision, No redness ENT: No sore throat, No trouble swallowing Respiratory: No shortness of breath, No dyspnea on exertion Cardiovascular: No chest pain, No edema Abdomen: No pain, No nausea, No vomiting, No diarrhea, No constipation Musculoskeletal: No joint pain, No swelling, No calf pain Genitourinary - Male: No hematuria, No dysuria Neurologic: No numbness/tingling Integumentary: No rash, No itch Physical Exam: General Appearance: WD/WN, no apparent distress, + pertinent finding ( appears older than stated age) Eyes: PERRL, EOMI ENT: hearing grossly normal, pharynx normal Neck: supple, no JVD Respiratory/Chest: no respiratory distress, no accessory muscle use, + pertinent finding (on room air, Faint crackles in LLL, RML and RLL improved from yesterday) Cardiovascular: regular rate, rhythm, no murmur, normal peripheral pulses Abdomen / GI: normal bowel sounds, non tender, soft Extremities: no calf tenderness, no pedal edema, + pertinent finding (R BKA) Neurologic/Psychiatric: alert, normal reflexes, oriented x 3 Skin: normal color, warm/dry (Gracia Maguire, AJITH) Hospital Course History of Present Illness pt arrives in transfer from [facility] with abdominal pain and shortness of breath , the pt states his abdomen did begin bloating for the last few days after attending a [facility] picnic, he states his bowel movements are normal, he has had no diarrhea or fever. he has been making urine normally and his recent AV fistulae is without pain or new tenderness. IN the Er he was given antibiotic for possible infiltrate/pneumonia seen although did not have fever or cough( other than smokers cough). His abdominal pain is diffuse, dull and only worse with movement but does not have classic peritoneal signs. He also is noted to have some hypoglycemia at the ER Physical Exam Vital Signs Date Time Temp Pulse Resp B/P (MAP) Pulse Ox O2 Delivery O2 Flow Rate FiO2 03/07/17 12:00 37.1 99 18 128/65 (86) 93 Nasal Cannula 6.0 03/07/17 12:00 93 Nasal Cannula 6.0 03/07/17 09:53 37.2 98 18 142/74 92 Room Air General Appearance: WD/WN, + mild distress Head: normocephalic, atraumatic Eyes: PERRL, EOMI ENT: hearing grossly normal, pharynx normal Respiratory/Chest: chest non-tender, + decreased breath sounds, + accessory muscle use Cardiovascular: regular rate, rhythm, no murmur Abdomen/GI: normal bowel sounds, soft, + tenderness Extremities/Musculoskelatal: no pedal edema, normal range of motion Neurologic/Psych: alert, oriented x 3 Skin: warm/dry, no rash Hospital Course: Mr. Ayala is a 57 year old man who transferred from [facility] ED with acute on chronic renal failure, anemia, hyperkalemia, abdominal pain and possible pneumonia, was found to have worsening anemia suspected to be acute blood loss from GI source and marked hypoxia with previous undiagnosed lung disease, CXR looks like pulmonary edema but Echo is with preserved EF and no mention of diastolic dysfunction. Acute on chronic renal failure with hyperkalemia - kayexalate given 03/07 and potassium normalized -fluids discontinued per nephrology's recommendation - faint rales on exam today, Cr is stable, today 3.1, baseline of 2.8 - will plan on Lasix 20 mg PO tomorrow am - likely will need outpatient 20 mg QOD dosing per nephrology. - Will need BMP drawn on 03/15 or 03/16 prior to outpt fu with Nephro scheduled on Sunday with Dr. Chapman. - Right AVF placed on 02/27/17 +thrill and bruit, maturing for future use - Appreciate nephrology recs Pulmonary edema - may be from acute diastolic heart failure or from poor renal function, despite ckd 3 will continue to diurese with lasix 20 mg Q2D. Pt received dose on the day of discharge. Bronchitis (Pneumonia ruled out) - pulmonary med does not feel is COPD- current smoker, levaquin 750 q 48, nebulizers, supplemental 02 pulmonary medicine is consulted - Levaquin finished - BCx NGTD Anemia - Hgb appears stable at 10.0, follow am labs - Epogen 75943 IU given yesterday, Cont Venofer 200 mg QOD - GI on board- have requested outpt follow up within 1-2 weeks for assessment and possible outpatient colonoscopy - May require outpatient 2 step as above. Abdominal pain - no diarrhea and CT without significant changes, no significant findings on xray - protonix bid, GI consult -could not have EGD due to hypoxia HTN - with renal failure hold ARB indefinitely. Norvasc was increased from 2.5 to 5 mg while admitted, continue upon discharge. BP to be reassessed by PCP. DM - good blood sugars, pharmacy glycemic management, diabetic diet - Was on Lantus 7 U BID and ISS while admitted - Will resume home dosing of Tujeo 45 U daily as an outpatient due to diet habits. Pt in agreement with frequent glucose checks for the next week. Follow up with PCP tomorrow. DVT ppx: heparin discontinued due to possible bleed, SCDs for DVT prevention CODE STATUS: FULL CODE Disposition: From home, nd today Total Time Spent: Greater than 30 minutes This includes examination of the patient, discharge planning, medication reconciliation, and communication with other providers. (Gracia Maguire PA-C) Attending Discharge Note & Attestation: Pt seen/examined, chart reviewed, and discharge care plan d/w SUGAR Maguire. I agree w/ the jones components of her discharge documentation. 57yo male with CKD stage 4, PAD, HTN, T2DM, and anemia who presented as a transfer from [facility] due to abdominal pain, dyspnea, acute/chronic renal failure, and hyperkalemia. Despite the abdominal pain & anemia his stool was heme negative. He was treated for volume overload (either from acute/chronic renal failure or acute/chronic diastolic CHF) with diuretics while hospitalized. Abdominal pain may have been due to constipation. Discharge creatinine was 3.3 and potassium was normal. He will follow-up with [facility] closely and have a repeat BMP on for stability. He will also follow-up with [facility] for possible outpatient EGD/ colonoscopy. Discharge exam: gen - nad neck - no JVD heart - RRR lungs - CTA b/l abd - soft, NT ext - right BKA, right arm AV fistula with incision clean, left leg w/o edema Jarvis Landon MD (Jarvis Landon MD) Discharge Instructions Please refer to the electronic Patient Visit Report (Discharge Instructions) for additional information. (Gracia Maguire PA-C) Follow-Up Follow up with your Primary Care Provider within 1 week, appointment has been requested. Follow up with GI within 1-2 weeks to assess for outpatient colonoscopy to further workup anemia etiology. Follow up with Nephrology, Dr. Chapman on Mar 19 at 2:30 pm. (Gracia Maguire PA-C) 1. Dr. Guanaco Rodríguez - March 19 at 2:30 2. SUGAR Lopez - [facility] - SundayMarch 27 at 1:[address] Chu - PCP - 03/14/17 at 11am (Jarvis Landon MD) Additional Copies To Gem Chu PA-C; Guanaco Rodríguez M.D.; Divya Draper PA
[2017-03-13 13:31] VITALS: BP 129/70; PULSE 84; TEMP 36.9; O2SAT 93
[2017-03-13] MEDS ORDERED: LEVOFLOXACIN 750 MG TAB PO SCH (14:00)
== END 2017-03-13 15:11 | disposition home or self-care (01) | DRG 377 ==
LOC: UNDOADMIN 08:48 → C.MSICU 08:48 → ENRESERV 03-09 09:05 → C.MED 03-09 10:19
PROVIDERS: ADMIT Hospitalist; ATTEND Internal Medicine
DX: K92.2 Gastrointestinal hemorrhage, unspecified (principal); I50.33 Acute on chronic diastolic (congestive) heart failure; J96.01 Acute respiratory failure with hypoxia; N17.9 Acute kidney failure, unspecified; D62 Acute posthemorrhagic anemia; J81.1 Chronic pulmonary edema; I13.0 Hypertensive heart and chronic kidney disease with heart failure and stage 1 through stage 4 chronic kidney disease, or unspecified chronic kidney disease; N18.4 Chronic kidney disease, stage 4 (severe); E87.5 Hyperkalemia; J40 Bronchitis, not specified as acute or chronic; R10.9 Unspecified abdominal pain; K59.00 Constipation, unspecified; D63.1 Anemia in chronic kidney disease; E11.649 Type 2 diabetes mellitus with hypoglycemia without coma; E11.22 Type 2 diabetes mellitus with diabetic chronic kidney disease; E11.21 Type 2 diabetes mellitus with diabetic nephropathy; E11.40 Type 2 diabetes mellitus with diabetic neuropathy, unspecified; E11.3593 Type 2 diabetes mellitus with proliferative diabetic retinopathy without macular edema, bilateral; K21.9 Gastro-esophageal reflux disease without esophagitis; I73.9 Peripheral vascular disease, unspecified; F17.210 Nicotine dependence, cigarettes, uncomplicated; Z89.511 Acquired absence of right leg below knee; Z23 Encounter for immunization; Z79.4 Long term (current) use of insulin; Z79.82 Long term (current) use of aspirin; Z79.899 Other long term (current) drug therapy

== ENCOUNTER → 2017-03-29 | Outpatient (CLI) | payer OTHER ==
[~2017-03-29] MED LIST: AMLO-110 PO; ASCA500 PO; ASCO500C43 OR; ASPI81TA28 PO; BLOOD PRESSURE PO; ERGO1CAP41 PO; FERR1TAB13 PO; FURO-85 PO; GABA-113 PO; INSPMPHMLG SQ; INSU1.2I SQ; MRLP17X PO; MULTTAB58 PO; NRN/600 PO; NRV5 PO; PANT40TA PO; POLY335019 PO; [UNRECOGNIZED DRUG - CODE] PO
--- NOTE | 2017-03-29 08:10 | DIAGNOSTIC IMAGING REPORT ---
ABDOMINAL ULTRASOUND, RIGHT UPPER QUADRANT HISTORY: R10.11 Abdominal pain, RUQ (right upper quadrant)7:30 arrival. E. COMPARISON: Outside hospital abdomen and pelvis CT 03/07/2017. FINDINGS: Pancreas: The pancreas demonstrates a normal echotexture. Liver: Unremarkable. Gallbladder: No gallbladder wall thickening. No gallstones. The gallbladder appears slightly contracted. CBD: 4 mm. Right kidney: No hydronephrosis. IMPRESSION: The gallbladder appears slightly contracted. However, no gallbladder wall thickening. No gallstones. Electronically signed by: Hans Echeverria M.D. 03/29/2017 8:09 AM Dictated Date/Time: 03/29/2017 8:08 AM
== END | disposition home or self-care (01) ==
LOC: C.ULTR 07:38
PROVIDERS: ATTEND Physician Assistant
DX: R10.11 Right upper quadrant pain (principal)

== ENCOUNTER → 2017-04-10 | Outpatient (CLI) | payer OTHER ==
[~2017-04-10] MED LIST changes: -ASCO500C43 OR; -GABA-113 PO; -MRLP17X PO; -NRV5 PO
[2017-04-10 12:22] LABS: BASO % 0.8 %; BASO ABS # 0.05 K/uL (0-0.2); COMPLETE YES; EOS % 6.4 %; HEMATOCRIT 29.1 % (42-52); IG% 0.2 %; LYMPH % 26.1 %; LYMPH ABS # 1.66 K/uL (1.2-3.4); MEAN CELL VOLUME 90.9 fL (80-100); MEAN CORPUSCULAR HEMOGLOBIN 30.6 pg (25-34); MEAN CORPUSCULAR HGB CONC 33.7 g/dl (32-36); MEAN PLATELET VOLUME 9.1 fL (7.4-10.4); MONO % 8.3 %; NEUT % 58.2 %; PLATELET COUNT 173 K/uL (130-400); WHITE BLOOD COUNT 6.36 K/uL (4.8-10.8)
[2017-04-10 12:25] LABS: URINE APPEARANCE CLEAR (CLEAR); URINE BILIRUBIN NEG (NEG); URINE COLOR YELLOW; URINE NITRITE NEG (NEG); URINE SPECIFIC GRAVITY 1.013 (1.000-1.030); UROBILINOGEN NEG (NEG)
[2017-04-10 12:28] LABS: MANUAL MICROSCOPIC REQUIRED? NO; REVIEW REQ? NO
[2017-04-10 12:51] LABS: BLOOD UREA NITROGEN 42 mg/dl (7-18); BUN/CREATININE RATIO 12.6 (10-20); CALCIUM 9.1 mg/dl (8.5-10.1); CARBON DIOXIDE 24 mmol/L (21-32); CHLORIDE 109 mmol/L (98-107); CREATININE 3.31 mg/dl (0.60-1.40); GLUCOSE 92 mg/dl (70-99); POTASSIUM 4.5 mmol/L (3.5-5.1); SODIUM 141 mmol/L (136-145)
[2017-04-10 12:56] LABS: FERRITIN 1039.5 ng/ml (8.0-388.0); TOTAL IRON BINDING CAPACITY 210 mcg/dl (250-450)
[2017-04-10 13:06] LABS: CREATININE, URINE 69.2 mg/dl; URINE PROTIEN/CREAT RATIO 2.7 (0-0.2); URINE TOTAL PROTEIN 185.7 mg/dl (0-11.9)
[2017-04-10 13:53] LABS: ESTIMATED AVERAGE GLUCOSE 126 mg/dl; HA1C FLAG Normal (Normal)
== END | disposition home or self-care (01) ==
LOC: C.NUCL 10:46
PROVIDERS: ATTEND Physician Assistant
DX: D64.9 Anemia, unspecified (principal); I12.9 Hypertensive chronic kidney disease with stage 1 through stage 4 chronic kidney disease, or unspecified chronic kidney disease; E11.22 Type 2 diabetes mellitus with diabetic chronic kidney disease; N18.4 Chronic kidney disease, stage 4 (severe); R80.9 Proteinuria, unspecified; E55.9 Vitamin D deficiency, unspecified; R10.11 Right upper quadrant pain

== ENCOUNTER 2018-10-25 14:59 | Inpatient (IN) ==
--- OUTSIDE RECORDS SUMMARY | 2018-10-25 21:29 | External Medical Summary | Continuity of Care Document ---
:1960 Author Name Bambi Aguilera, Provider Address Unavailable Unavailable , Care Team Providers Name Role Phone Jodie Oliveira Unavailable [email or web address] Draper PA-C Unavailable [email or web address] Kyle MAST Unavailable [email or web address] Jaclyn ACNSECO Unavailable [email or web address] Garett Pina M.D. Unavailable [email or web address] SURYA, L Unavailable Unavailable Unavailable Unavailable Unavailable Problems Status post below knee amputation (V49.75) (Z89.519) Sensory problems with limbs (V49.3) (R20.9) Abdominal pain, RUQ (right upper quadrant) (789.01) (R10.11) Cigarette smoker one half pack a day or less (305.1) (F17.21 0) Current smoker (305.1) (F17.200) Anemia (285.9) (D64.9) Proteinuria (791.0) (R80.9) Vitamin D deficiency (268.9) (E55.9) Diabetes mellitus type 2, uncontrolled (250.02) (E11.65) Diabetes mellitus type 2, insulin dependent (250.00) (E11.9) Diabetes mellitus with neurological itz festations, uncontrolled (250.62) (E11.49) Diabetic peripheral neuropathy (250.60) (E11.42) Chronic kidney disease (CKD), stage V (585.5) (N18.5) Diabetes mellitus with renal manifestations, uncontrolled (2 50.42) (E11.29) Proliferative diabetic retinopathy, both eyes (250.50) (E11. 3593) Dyslipidemia (272.4) (E78.5) Hypertension (401.9) (I10) Headache (784.0) (R51) Abnormal head MRI (793.0) (R93.0) Allergies and Adverse Reactions No Known Drug Allergies (Allergy) Medications Aspirin 81 MG TABS; TAKE 1 TABLET DAILY. Refills: 0 OneTouch Ultra Blue In Vitro Strip; TEST four times a day PRO Friedman Nilam Start: 28-Jan-2018 Quantity: 4 100 Strip Box Refills: 3 Vitamin C TABS; 500 mg BID Refills: 0 Metoprolol Succinate ER 25 MG Oral Table t Extended Release 24 Hour; TAKE 1 TABLET ONCE DAILY. Start: 27-Jun-2018 Refills: 0 100 Tablet Bottle Gabapentin 300 MG Oral Capsule; TAKE 2 CAPSULE 3 times daily Start: 27-Jun-2018 Refills: 0 BD Pen Needle Loly U/F 32G X 4 MM; for use with twice daily NPH injections PRO Rae Start: 10-Jun-2012 Quantity: 1 90 EA Box Refills: 5 PEG-3350/Electrolytes 236 GM Oral Solution Reconstitut ed; TAKE DIRECTED. AJITH Draper Start: 10-Apr-2017 Quantity: 1 4000 ML Bottle Refills: 0 Zestril 5 MG Oral Tablet; TAKE 1 TABLET DAILY. Refills: 0 Amitriptyline HCl - 10 MG Oral Tablet; t malka one tablet at bedtime for one week, then increase to two tablets at bedtime thereafter Ale Pina rt: 15-Aug-2018 Quantity: 60 Refills: 0 Toujeo SoloStar 300 UNIT/ML Subcutaneous Solution Pen-injector; INJECT 30 UNITS SUBQ ONCE DAILY AJITH Anaya Start: 14-Apr-2016 Quantity: 1 3 x 1.5 ML Pen Refills: 5 Penicillin V Potassium 500 MG Oral Table t; TAKE 1 TABLET 4 TIMES DAILY UNTIL GONE. Start: 27-Jun-2018 Refills: 0 HumaLOG KwikPen 100 UNIT/ML Subcutaneous Solution Pen-injector; INJECT 8 UNITS PLUS SLIDING SCALE WITH MEALS. TDD 35 Start: 27-Jun-19 19 Refills: 0 3 ML Pen Protonix 40 MG Oral Tablet Delayed Release; TAKE 1 TABLET DA EUSEBIO. Refills: 0 Sodium Polystyrene Sulfonate Oral Powder ; MIX 15 GRAMS IN LIQUID AND DRINK ONCE DAILY Refills: 0 cloNIDine HCl ER 0.1 MG Oral Tablet Exte nded Release 12 Hour; Take 1 tablet twice daily Start: 27-Jun-2018 Refills: 0 Sevelamer Carbonate 800 MG Oral Tablet; TAKE ONE TABLET 3 TIMES DAILY WITH MEALS Start: 27-Jun-2018 Refills: 0 Procedures History of Oral Surgery Tooth Extraction Status: Completed History of Surgery Vas Deferens Vasectomy Status: Completed History of Amputation Of Leg Below Knee Status: Completed Immunizations Pneumococcal polysaccharide vaccine, 23 valent On: 2008 Influenza On: 04-Apr-2011 9:44 Lot #: [id number], SANOFI PASTEUR Influenza On: 10-Jun-2012 12:34 Lot #: [id number], SANOFI PASTEUR Influenza Comments:Fall 2012 Influenza On: 25-Jul-2013 14:59 Lot #: [id number], SANOFI PASTEUR Pneumococcal polysaccharide vaccine, 23 valent On: Jun-2015 Influenza On: 18-Mar-2016 Family History Unknown Family Member Family history of Diabetes Mellitus (V18.0) Status: Active Comments: Family History Family history of End Stage Renal Disease Status: Active Comments: Family History Mother Family history of type 2 diabetes mellitus (V18.0) (Z83.3) S tatus: Active natural daughter Family history of type 2 diabetes mellitus (V18.0) (Z83.3) S tatus: Active Brother Family history of type 2 diabetes mellitus (V18.0) (Z83.3) S tatus: Active Father Family history of hypertension (V17.49) (Z82.49) Status: Act reymundo Social History - Smoking Status Smoker. current status unknown Plan of Treatment Planned Encounters Appointment; Jaquan Pina M.D. Start: 03-Jan-2019 11:30 Req uest Planned Observations Planned Goals not documented Results No Known Results Results not documented Encounters Appointment; Desi Anaya PA-C 12-Sep-2018 11:00 Encounter Diagnosis: Problem not documented Appointment; Desi Anaya PA-C 22-Aug-2018 15:00 Encounter Diagnosis: Problem not documented Appointment; Jaquan Pina M.D. 15-Aug-2018 10:30 Encounter Diagnosis: Problem not documented Appointment; Desi Anaya PA-C 27-Jun-2018 15:00 Encounter Diagnosis: Problem not documented Appointment; Guanaco Rodríguez M.D. 14-Dec-2017 14:30 Encounter Diagnosis: Problem not documented Appointment; Nilam Wright CRNP 14-Dec-2017 10:30 Encounter Diagnosis: Problem not documented Appointment; Guanaco Rodríguez M.D. 23-Nov-2017 15:30 Encounter Diagnosis: Problem not documented Appointment; Nilam Wright CRNP 28-May-2017 15:15 Encounter Diagnosis: Problem not documented Appointment; Tere Sanchez R.D. 23-Apr-2017 11:15 Encounter Diagnosis: Problem not documented Appointment; Guanaco Rodríguez M.D. 19-Apr-2017 13:45 Encounter Diagnosis: Problem not documented Appointment; Divya Draper PA-C 27-Mar-2017 13:00 Encounter Diagnosis: Problem not documented Appointment; Guanaco Rodríguez M.D. 19-Mar-2017 14:30 Encounter Diagnosis: Problem not documented Appointment; Guanaco Rodríguez M.D. 05-Mar-2017 13:30 Encounter Diagnosis: Problem not documented Appointment; Guanaco Rodríguez M.D. 02-Feb-2017 13:15 Encounter Diagnosis: Problem not documented Appointment; Nilam Wright CRNP 25-Jan-2017 15:45 Encounter Diagnosis: Problem not documented Appointment; Guanaco Rodríguez M.D. 01-Nov-2016 13:45 Encounter Diagnosis: Problem not documented Appointment; Nilam Wright CRNP 01-Nov-2016 13:00 Encounter Diagnosis: Problem not documented Appointment; Jaquan Pina M.D. 03-Jan-2019 11:30 Encounter Diagnosis: Problem not documented
[2018-10-25] MEDS ORDERED: GLUCOSE 10 TABS/TUBE PO PRN (21:42)
[2018-10-25] MEDS ORDERED: GLUCAGON FOR INJ 1 MG VIAL SQ PRN (21:42)
[2018-10-25] MEDS ORDERED: CARBOHYDRATES FOR HYPOGLYCEMIA PO PRN (21:42)
[2018-10-25] MEDS ORDERED: ACETAMINOPHEN 325 MG TAB PO PRN (21:42)
[2018-10-25] MEDS ORDERED: ONDANSETRON INJ 2 MG/ML 2 ML VIAL IV PRN (21:42)
[2018-10-25] MEDS ORDERED: GLUCOSE 40% GEL 15 GM TUBE PO PRN (21:42)
--- NOTE | 2018-10-25 22:28 | History & Physical Report ---
Date of Service October 25, 2018 Assessment & Plan (1) Shortness of breath: Patient with persistent shortness of breath and new oxygen requirement. Presently 95% on 2L NC, no respiratory distress, bilateral crackles. Patient reportedly had 7L of fluid overload on him, only 3L removed during HD today. Most likely secondary to incomplete treatments earlier in the week. -Supplemental O2 as needed -HD in AM -Patient still makes urine, may consider diuretic overnight if SOB worsens Present on Admission?: Yes (2) ESRD (end stage renal disease) on dialysis: Patient with HD q M/W/F. Seems to be volume overloaded at present. Still making urine. Patient presently being worked up for transplant. Had a cath last week at [place] that was reportedly normal. -Obtain chemistry panel -Renal consult for HD in AM - appreciate assistance -Renal diet as tolerated -Avoid nephrotoxins -Renal dosing where appropriate -Continue Renagel Present on Admission?: Yes (3) HTN (hypertension): Blood pressure presently 131/65, well controlled -Continue Amlodipine -Contnue Clonidine -Continue Metoprolol -Continue to monitor Present on Admission?: Yes (4) Diabetes: Patient reports adequate control -Continue Glargine 45u qAM -ISS -Continue to monitor Present on Admission?: Yes (5) Anemia in chronic kidney disease: No active bleeding -Check CBC -Continue Fe supplement F/E/N - heplock. Monitor electrolytes, CC/Renal diet as tolerated Ppx - Heparin, continue home Carafate and protonix Code - Full per discussion with patient Dispo - 209 History of Present Illness Chief Complaint: shortness of breath Primary Care Provider: Mitul Chu Mr. Ayala is a pleasant 58yo male with history of ESRD on HD q M/W/F, HTN, DM, Anemia presenting with shortness of breath. Patient had a full HD treatment today. He reports having 7L of fluid overload and they were only able to remove 3L. Patient was short of breath during HD and required oxygen. After his treatment his room air saturation was still < 90% so he was sent to [facility]. He was subsequently transferred to [facility] for direct admission. He presently feels slightly short of breath with some chest congestion but overall improved. Slight non-productive cough. Patient states he did not receive full HD treatments on Sunday or Sunday as he became frustrated and left with approximately 30 minutes left in his treatment. Course at OSH: Lasix 40mg IV x 1 Allergies Allergy/AdvReac Type Severity Reaction Status Date / Time No Known Allergies Allergy Unverified 10/25/18 22:10 Home Medications Home Medications Medication Instructions Recorded Confirmed Type ASPIRIN (ASPIRIN EC) 81 mg PO QAM #0 03/07/17 10/25/18 History FERROUS SULFATE (KP FERROUS 1 tab PO BID #0 03/07/17 10/25/18 History SULFATE) Insulin Glargine (Toujeo Solostar) 45 unit SUBCUT QAM #0 03/07/17 10/25/18 History Insulin Human Lispro (Humalog) 8 unit SUBCUT AC #0 03/07/17 10/25/18 History Pantoprazole (Protonix) 40 mg PO QAM #0 03/07/17 10/25/18 History Amlodipine (Norvasc) 5 mg PO QAM #0 03/29/17 10/25/18 History Ascorbic Acid (Vitamin C) 1 tab PO BID #0 03/29/17 10/25/18 History metoprolol tartrate 25 mg PO QAM #0 03/29/17 10/25/18 History B complex-vitamin C-folic acid 1 tab-cap PO DAILY 10/25/18 10/25/18 History [Nephro-Thong] atorvastatin [Lipitor] 40 mg PO DAILY 10/25/18 10/25/18 History clonidine HCl [Catapres] 0.1 mg PO BID 10/25/18 10/25/18 History gabapentin [Neurontin] 2 tabs PO TID 10/25/18 10/25/18 History sevelamer carbonate [Renvela] 1 tab PO TID 10/25/18 10/25/18 History sucralfate [Carafate] 1 tab PO QID 10/25/18 10/25/18 History Past Med/Surg History Medical History AV fistula Anemia of chronic disease Diabetes ESRD (end stage renal disease) on dialysis Hypertension Surgical History S/P cardiac cath Status post below knee amputation of right lower extremity Family History Other Coronary heart disease Social History Preferred Language: Botswanan Communication Ability: Effective Beliefs That Will Affect Care: None Current Living Situation: Family Other Information That Helps Us Care for You: No Feels Safe at Home: No Is there a partner from a previous relationship who is making you feel unsafe now?: No Any Concerns about Your Family Situation: No Would You Like to Speak to Someone About Your Situation: No Safety Concerns: Feels Safe At This Time Smoking Status: Current every day smoker Tobacco Type: cigarettes Cigarettes Per Day: 5 Do You Dip or Chew Tobacco: No Second Hand Exposure: No Tobacco Cessation Education Requested by Patient: No Hx Alcohol Use: Yes Alcohol type: beer Hx Substance Use: No Review of Systems Review of Systems: All systems reviewed & are unremarkable except as noted in HPI & below Physical Exam Physical Exam: General: patient resting comfortably, NAD, non-toxic in appearance, AA&O x 4 Skin: warm, dry, intact, no rashes or lesions HEENT: NC/AT, PERRL, EOMI, anicteric sclera, conjunctiva without injection, external ear normal to inspection and nontender, nares patent, moist mucus membranes, adentulous, no oropharyngeal lesions, neck supple, trachea midline, no LAD, no thyromegaly, no JVD Heart: +S1/S2, regular, no m/r/g Lungs: equal air entry bilaterally, crackles in bilateral lungs to upper lung field Abd: +BS, soft, NT/ND, no masses/organomegaly/ascites Ext: s/p right BKA with small opening at tip of stump, no bleeding/drainage/erythema/edema, left charcot foot, 2+ pulses, RUE AV fistula with palpable thrill Neuro: nonfocal, patient AA&O x 4, speech intact, no facial droop, moving all extremities on command with equal strength 5/5 Results & Data Vital Signs (Past 12 Hours) Vital Signs Temp Pulse Resp BP Pulse Ox 10/25/18 21:32 36.8 C 75 18 131/65 95 Laboratory Results Ordered BMP, Mg, PO4, CBC ECG Additional Comments: From OSH: NSR at 76bpm, normal axis, TF=784, QRS=94, HKg=305, T-wave flattening Code Status & VTE Plan Code Status Full per discussion with patient VTE Prophylaxis Plan VTE Prophylaxis will be ordered: Yes Critical Care Time Critical Care Time: No (1) HTN (hypertension) Hypertension type: essential hypertension Qualified Code(s): I10 - Essential (primary) hypertension (2) Diabetes Diabetes mellitus type: type 2 Diabetes mellitus fci insulin use: with fci use Diabetes mellitus complication status: with kidney complications Diabetes mellitus complication detail: with chronic kidney disease Chronic kidney disease stage: on chronic dialysis Qualified Code(s): E11.22 - Type 2 diabetes mellitus with diabetic chronic kidney disease; N18.6 - End stage renal disease; 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
[2018-10-25] MEDS: DEXTROSE 50% 50 ML SYRINGE IV PRN (23:05)
[2018-10-25 23:20] LABS: Basophils # (auto) 0.03 K/uL (0-0.2); Basophils % (auto) 0.3 %; Eosinophils # (auto) 0.13 K/uL (0-0.5); Eosinophils % (auto) 1.4 %; Hematocrit (blood only) 26.9 % (42-52); Hemoglobin 9.4 g/dL (14.0-18.0); Immature Granulocytes # (auto) 0.03 K/uL (0.00-0.02); Immature Granulocytes % (auto) 0.3 %; Lymphocytes # (auto) 1.63 K/uL (1.2-3.4); Lymphocytes % (auto) 17.7 %; Mean Corpuscular Hgb Conc 34.9 g/dL (32-36); Mean Corpuscular Volume 87.3 fL (80-100); Mean Platelet Volume 8.6 fL (7.4-10.4); Monocytes # (auto) 0.31 K/uL (0.11-0.59); Monocytes % (auto) 3.4 %; Neutrophils # (auto) 7.07 K/uL (1.4-6.5); Neutrophils % (auto) 76.9 %; Platelet Count 156 K/uL (130-400); RDW Coefficient of Variation 14.3 % (11.5-14.5); RDW Standard Deviation 45.6 fL (36.4-46.3); Red Blood Count 3.08 M/uL (4.7-6.1)
[2018-10-25 23:44] LABS: BUN Creatinine Ratio 6.4 (10-20); Calcium 8.7 mg/dl (8.5-10.1); Creatinine Clr Calc Pharmacy 18.6 ml/min; Est GFR (African American) 17.6; Est GFR (Non-African American) 15.2; Phosphorus 3.9 mg/dl (2.5-4.9); Potassium 3.3 mmol/L (3.5-5.1)
[2018-10-26] MEDS: DEXTROSE 50% 50 ML SYRINGE IV PRN ×2 (01:11→02:46)
[2018-10-26 06:30] LABS: INR 1.1 (0.9-1.1)
[2018-10-26] MEDS ORDERED: SODIUM CHLORIDE 0.9% 1000ML 1,000 ML IV PRN (07:53)
[2018-10-26] MEDS ORDERED: EPOETIN ALFA 4,000 UNIT/ML VIAL IV SCH (08:45)
[2018-10-26] MEDS ORDERED: INSULIN GLARGINE SOLOSTAR 100 UNITS/ML 3 ML PEN SQ SCH (09:00)
[2018-10-26] MEDS: cloNIDine HCl 0.1 MG TAB PO SCH ×2 (09:06→22:00)
[2018-10-26] MEDS: METOPROLOL TARTRATE 25 MG TAB PO SCH (09:06)
[2018-10-26] MEDS: ATORVASTATIN 40 MG TAB PO SCH (09:06)
[2018-10-26] MEDS: SUCRALFATE 1 GM TAB PO SCH ×4 (09:06→21:59)
[2018-10-26] MEDS: AMLODIPINE BESYLATE 5 MG TAB PO SCH (09:07)
[2018-10-26] MEDS: SEVELAMER HCL 800 MG TABLET PO SCH ×3 (09:07→17:23)
[2018-10-26] MEDS: HEPARIN SOD 5,000 UNIT/0.5 ML VIAL SQ SCH ×3 (09:07→22:04)
[2018-10-26] MEDS: INSULIN ASPART 100 UNITS/ML 3 ML PEN SC SCH ×4 (09:07→22:02)
[2018-10-26] MEDS: ASPIRIN 81 MG ECTAB PO SCH (09:08)
[2018-10-26] MEDS: VITAMIN B COMPLEX TAB PO SCH (09:08)
[2018-10-26] MEDS: GABAPENTIN 600 MG TAB PO SCH ×3 (09:08→22:01)
[2018-10-26] MEDS: FERROUS SULFATE 325 MG TAB PO SCH ×2 (09:09→22:01)
[2018-10-26] MEDS: PANTOprazole 40 MG TAB PO SCH (09:09)
--- NOTE | 2018-10-26 11:20 | Nephrology Consultation ---
Date of Consultation October 26, 2018 Assessment & Plan (1) Shortness of breath: -- Improving with UF and supplemental O2 -- Consistent with volume overload from missed dialysis treatments (2) ESRD (end stage renal disease) on dialysis: -- Emergent HD being provided for volume overload -- 4K -- Gabe is tolerating HD well -- Qb appropriate -- BP acceptable -- UF goal 3.5 L (3) HTN (hypertension): -- BP acceptable on amlodipine, clonidine, metoprolol (4) Diabetes: (5) Anemia in chronic kidney disease: -- Hgb at baseline -- Venofer 200 mg and EPO 4000 units to be provided with HD today History of Present Illness Reason for Consultation: ESRD Requesting Physician: Jarvis Landon Attending Physician: Jarvis Landon History of Present Illness Mr. Ayala has end stage renal disease attributed to diabetic nephropathy, hypertensive nephrosclerosis and microvascular disease. Past medical history includes DM II complicated by retinopathy and peripheral neuropathy. Gabe started HD via an UE AVF on December 18 2017. He dialyzes on a MWF schedule at [facility] under my care. Gabe has struggled with dialysis treatments. This includes headaches. He is following with Dr. Falcon in the neurology clinic regarding a history of headaches. These have improved. He also struggled with discomfort during treatment from a lower extremity wound. Gabe has lost protective sensation involving his lower extremities. He has Charcot injury to his left foot and wears an orthopedic boot. He required right BKA in 2010. He developed an ulcer involving the stump. This became infected requiring treatment with vancomycin a couple months ago. The ulcer is healing at this time. He follows regularly in the wound care clinic at [facility]. He had been frustrated with treatment and recently has been signing off dialysis early. After signing off early the past few treatments and continuing to have large intradialytic weight gains, he presented to dialysis yesterday >7 kg above his EDW. He had notable dyspnea and fatigue. He was able to tolerate dialysis yesterday but UF was limited to 3 L. He presented to the ED yesterday evening. Emergent dialysis is being provided today for hypervolemia at my discretion. Gabe is being evaluated for kidney transplant listing at [facility]. He had an abnormal dobutamine stress echocardiogram. This demonstrated concern for possible inferior wall ischemia. A cardiac catheterization was performed at [facility] on October 16. This demonstrated normal coronary arteries. He is treated for hypertension. He has a longstanding history of hypertension with accelerated blood pressure readings in the past. There is a significant history of tobacco abuse. Mr. Ayala has chronic anemia. He underwent evaluation by Hematology in 2010. Bone marrow biopsy was normal. There is no evidence of myeloma. The patient was on Procrit therapy for a brief period of time but was lost to follow-up. Allergies Allergy/AdvReac Type Severity Reaction Status Date / Time No Known Allergies Allergy Unverified 10/25/18 22:10 Home Medications Home Medications Medication Instructions Recorded Confirmed Type ASPIRIN (ASPIRIN EC) 81 mg PO QAM #0 03/07/17 10/25/18 History FERROUS SULFATE (KP FERROUS 1 tab PO BID #0 03/07/17 10/25/18 History SULFATE) Insulin Glargine (Toujeo Solostar) 45 unit SUBCUT QAM #0 03/07/17 10/25/18 History Insulin Human Lispro (Humalog) 8 unit SUBCUT AC #0 03/07/17 10/25/18 History Pantoprazole (Protonix) 40 mg PO QAM #0 03/07/17 10/25/18 History Amlodipine (Norvasc) 5 mg PO QAM #0 03/29/17 10/25/18 History Ascorbic Acid (Vitamin C) 1 tab PO BID #0 03/29/17 10/25/18 History metoprolol tartrate 25 mg PO QAM #0 03/29/17 10/25/18 History B complex-vitamin C-folic acid 1 tab-cap PO DAILY 10/25/18 10/25/18 History [Nephro-Thong] atorvastatin [Lipitor] 40 mg PO DAILY 10/25/18 10/25/18 History clonidine HCl [Catapres] 0.1 mg PO BID 10/25/18 10/25/18 History gabapentin [Neurontin] 2 tabs PO TID 10/25/18 10/25/18 History sevelamer carbonate [Renvela] 1 tab PO TID 10/25/18 10/25/18 History sucralfate [Carafate] 1 tab PO QID 10/25/18 10/25/18 History Patient History Medical History AV fistula Anemia of chronic disease Diabetes ESRD (end stage renal disease) on dialysis Hypertension Surgical History S/P cardiac cath Status post below knee amputation of right lower extremity Family History Other Coronary heart disease Social History Preferred Language: Luxembourger Communication Ability: Effective Beliefs That Will Affect Care: None Current Living Situation: Family Other Information That Helps Us Care for You: No Feels Safe at Home: No Is there a partner from a previous relationship who is making you feel unsafe now?: No Any Concerns about Your Family Situation: No Would You Like to Speak to Someone About Your Situation: No Safety Concerns: Feels Safe At This Time Smoking Status: Current every day smoker Tobacco Type: cigarettes Cigarettes Per Day: 5 Do You Dip or Chew Tobacco: No Second Hand Exposure: No Tobacco Cessation Education Requested by Patient: No Hx Alcohol Use: Yes Alcohol type: beer Hx Substance Use: No Review of Systems Review of Systems: All systems reviewed & are unremarkable except as noted in HPI & below Physical Exam Constitutional: well developed; no acute distress Eyes: no scleral abnormality and no corneal abnormality ENMT: Mouth: no oral mucosal abnormality and oral mucous membranes not dry Neck: normal visual inspection and trachea midline Respiratory: no respiratory distress Auscultation: + rales Cardiovascular: Heart Sounds: normal S1, normal S2 and + murmur Vessels: + JVD Extremities: + AV fistula; no edema Gastrointestinal (Abdomen): Inspection/Auscultation: no abdominal edema Percussion/Palpation: abdomen soft; abdomen nontender Musculoskeletal: Extremities: no cyanosis and no clubbing Skin: normal turgor; no rashes Neurologic: Motor/Sensory: no tremor and no asterixis Psychiatric: Orientation: alert and oriented x 3 Results & Data Vital Signs (Past 12 Hours) Vital Signs Temp Pulse Pulse Resp BP Pulse Ox 10/26/18 09:25 37.3 C 82 10/26/18 07:57 37.2 C 82 19 139/72 90 10/26/18 03:36 36.4 C L 78 16 143/81 H 92 10/26/18 02:31 36.6 C 74 16 133/67 91 10/25/18 23:44 36.7 C 75 16 120/69 92 Laboratory Results Laboratory Results - last 24 hr 10/25/18 10/25/18 10/25/18 22:06 22:55 22:55 WBC 9.20 RBC 3.08 L Hgb 9.4 L Hct 26.9 L MCV 87.3 MCH 30.5 MCHC 34.9 RDW Std Deviation 45.6 RDW Coeff of Anabelle 14.3 Plt Count 156 MPV 8.6 Immature Gran % (Auto) 0.3 Neut % (Auto) 76.9 Lymph % (Auto) 17.7 [place] % (Auto) 3.4 Eos % (Auto) 1.4 Baso % (Auto) 0.3 Immature Gran # (Auto) 0.03 H Neut # (Auto) 7.07 H Lymph # (Auto) 1.63 [place] # (Auto) 0.31 Eos # (Auto) 0.13 Baso # (Auto) 0.03 PT INR Sodium 137 Potassium 3.3 L Chloride 95 L Carbon Dioxide 37 H Anion Gap 5.0 BUN 26 H Creatinine 4.09 H Est Cr Clr Drug Dosing 18.6 Est GFR ( Amer) 17.6 Est GFR (Non-Af Amer) 15.2 BUN/Creatinine Ratio 6.4 L Glucose 44 L* POC Glucose Calcium 8.7 Phosphorus 3.9 Magnesium 2.0 Nasal Screen MRSA (PCR) Positive A 10/25/18 10/25/18 10/26/18 23:01 23:31 01:07 WBC RBC Hgb Hct MCV MCH MCHC RDW Std Deviation RDW Coeff of Anabelle Plt Count MPV Immature Gran % (Auto) Neut % (Auto) Lymph % (Auto) [place] % (Auto) Eos % (Auto) Baso % (Auto) Immature Gran # (Auto) Neut # (Auto) Lymph # (Auto) [place] # (Auto) Eos # (Auto) Baso # (Auto) PT INR Sodium Potassium Chloride Carbon Dioxide Anion Gap BUN Creatinine Est Cr Clr Drug Dosing Est GFR ( Amer) Est GFR (Non-Af Amer) BUN/Creatinine Ratio Glucose POC Glucose 44 L* 79 40 L* Calcium Phosphorus Magnesium Nasal Screen MRSA (PCR) 10/26/18 10/26/18 10/26/18 01:28 02:30 03:39 WBC RBC Hgb Hct MCV MCH MCHC RDW Std Deviation RDW Coeff of Anabelle Plt Count MPV Immature Gran % (Auto) Neut % (Auto) Lymph % (Auto) [place] % (Auto) Eos % (Auto) Baso % (Auto) Immature Gran # (Auto) Neut # (Auto) Lymph # (Auto) [place] # (Auto) Eos # (Auto) Baso # (Auto) PT INR Sodium Potassium Chloride Carbon Dioxide Anion Gap BUN Creatinine Est Cr Clr Drug Dosing Est GFR ( Amer) Est GFR (Non-Af Amer) BUN/Creatinine Ratio Glucose POC Glucose 89 67 L* 135 H Calcium Phosphorus Magnesium Nasal Screen MRSA (PCR) 10/26/18 10/26/18 05:49 07:16 WBC RBC Hgb Hct MCV MCH MCHC RDW Std Deviation RDW Coeff of Anabelle Plt Count MPV Immature Gran % (Auto) Neut % (Auto) Lymph % (Auto) [place] % (Auto) Eos % (Auto) Baso % (Auto) Immature Gran # (Auto) Neut # (Auto) Lymph # (Auto) [place] # (Auto) Eos # (Auto) Baso # (Auto) PT 11.0 INR 1.1 Sodium Potassium Chloride Carbon Dioxide Anion Gap BUN Creatinine Est Cr Clr Drug Dosing Est GFR ( Amer) Est GFR (Non-Af Amer) BUN/Creatinine Ratio Glucose POC Glucose 139 H Calcium Phosphorus Magnesium Nasal Screen MRSA (PCR) (1) HTN (hypertension) Hypertension type: essential hypertension Qualified Code(s): I10 - Essential (primary) hypertension (2) Diabetes Diabetes mellitus type: type 2 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 making 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 use Diabetes mellitus complication status: with kidney complications Diabetes mellitus complication detail: with chronic kidney disease Chronic kidney disease stage: on chronic dialysis Qualified Code(s): E11.22 - Type 2 diabetes mellitus with diabetic chronic kidney disease; N18.6 - End stage renal disease; Z79.4 - 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
[2018-10-26 15:34] LABS: Hepatitis B Surface Antibody Immune
[2018-10-26 15:46] LABS: Hepatitis B Surface Antigen Neg (Neg)
--- NOTE | 2018-10-26 21:46 | Hospitalist Progress Note ---
Date of Service October 26, 2018 Assessment & Plan (1) Volume overload: patient has cut short his HD sessions in [place] and drinks copious amounts of fluid. When I told him he should restrict fluids to 1500cc/day he seemed surprised by this. He has no h/o LV dysfunction. Check TSH in am. s/p HD last night, today, and again planned for tomorrow. He still has crackles on exam c/w ongoing overload. (2) ESRD (end stage renal disease) on dialysis: on HD 3 days/week appreciate nephrology assistance (3) HTN (hypertension): cont home regimen (4) Anemia in chronic kidney disease: H/H stable (5) Diabetes: significant hypoglycemia overnight. his AM lantus was held. he takes 30 units of Toujeo at home. Will order 20 units lantus for the AM tomorrow. Adjust novolog as needed. (6) DVT prophylaxis: lower heparin to q12h dosing Subjective patient feels better today. less dyspnea. still requiring O2. no cough. admits to excessive fluid intake at home. Review of Systems Constitutional: no fever Respiratory: + dyspnea on exertion; no dyspnea and no wheezing Cardiovascular: no chest pain Gastrointestinal: no abdominal pain, no nausea and no vomiting Physical Exam Constitutional: well developed and well nourished; no acute distress ENMT: external ear and nose normal, oropharynx normal Respiratory: Auscultation: + crackles (1/[address] back) Cardiovascular: Rate/Rhythm: regular rate and regular rhythm Heart Sounds: normal S1 and normal S2; no murmur Vessels: no JVD RUE fistula in place Gastrointestinal (Abdomen): normal bowel sounds, soft, nontender, no hepatosplenomegaly Psychiatric: A+Ox3, euthymic affect Results & Data Vital Signs (Past 12 Hours) Vital Signs Temp Pulse Pulse Resp BP BP Pulse Ox 10/26/18 19:55 37.0 C 80 18 137/69 93 10/26/18 19:24 37.1 C 78 14 148/86 H 97 10/26/18 15:21 36.4 C L 80 20 151/76 H 98 10/26/18 14:08 37.0 C 75 17 129/73 96 10/26/18 13:39 37.3 C 75 141/71 H 10/26/18 13:20 70 120/70 10/26/18 13:00 68 101/72 10/26/18 12:40 74 132/72 10/26/18 12:20 75 144/79 H 10/26/18 12:00 75 133/72 10/26/18 11:40 77 144/80 H 10/26/18 11:20 79 145/80 H 10/26/18 11:00 80 146/77 H 10/26/18 10:40 83 147/75 H 10/26/18 10:20 80 129/66 10/26/18 10:00 82 149/80 H Laboratory Results Laboratory Results - last 24 hr 10/25/18 10/25/18 10/25/18 22:06 22:55 22:55 WBC 9.20 RBC 3.08 L Hgb 9.4 L Hct 26.9 L MCV 87.3 MCH 30.5 MCHC 34.9 RDW Std Deviation 45.6 RDW Coeff of Anabelle 14.3 Plt Count 156 MPV 8.6 Immature Gran % (Auto) 0.3 Neut % (Auto) 76.9 Lymph % (Auto) 17.7 [place] % (Auto) 3.4 Eos % (Auto) 1.4 Baso % (Auto) 0.3 Immature Gran # (Auto) 0.03 H Neut # (Auto) 7.07 H Lymph # (Auto) 1.63 [place] # (Auto) 0.31 Eos # (Auto) 0.13 Baso # (Auto) 0.03 PT INR Sodium 137 Potassium 3.3 L Chloride 95 L Carbon Dioxide 37 H Anion Gap 5.0 BUN 26 H Creatinine 4.09 H Est Cr Clr Drug Dosing 18.6 Est GFR ( Amer) 17.6 Est GFR (Non-Af Amer) 15.2 BUN/Creatinine Ratio 6.4 L Glucose 44 L* POC Glucose Calcium 8.7 Phosphorus 3.9 Magnesium 2.0 Nasal Screen MRSA (PCR) Positive A Hep Bs Antigen Hep Bs Antibody Hep Bs Antibody, Quant 10/25/18 10/25/18 10/26/18 23:01 23:31 01:07 WBC RBC Hgb Hct MCV MCH MCHC RDW Std Deviation RDW Coeff of Anabelle Plt Count MPV Immature Gran % (Auto) Neut % (Auto) Lymph % (Auto) [place] % (Auto) Eos % (Auto) Baso % (Auto) Immature Gran # (Auto) Neut # (Auto) Lymph # (Auto) [place] # (Auto) Eos # (Auto) Baso # (Auto) PT INR Sodium Potassium Chloride Carbon Dioxide Anion Gap BUN Creatinine Est Cr Clr Drug Dosing Est GFR ( Amer) Est GFR (Non-Af Amer) BUN/Creatinine Ratio Glucose POC Glucose 44 L* 79 40 L* Calcium Phosphorus Magnesium Nasal Screen MRSA (PCR) Hep Bs Antigen Hep Bs Antibody Hep Bs Antibody, Quant 10/26/18 10/26/18 10/26/18 01:28 02:30 03:39 WBC RBC Hgb Hct MCV MCH MCHC RDW Std Deviation RDW Coeff of Anabelle Plt Count MPV Immature Gran % (Auto) Neut % (Auto) Lymph % (Auto) [place] % (Auto) Eos % (Auto) Baso % (Auto) Immature Gran # (Auto) Neut # (Auto) Lymph # (Auto) [place] # (Auto) Eos # (Auto) Baso # (Auto) PT INR Sodium Potassium Chloride Carbon Dioxide Anion Gap BUN Creatinine Est Cr Clr Drug Dosing Est GFR ( Amer) Est GFR (Non-Af Amer) BUN/Creatinine Ratio Glucose POC Glucose 89 67 L* 135 H Calcium Phosphorus Magnesium Nasal Screen MRSA (PCR) Hep Bs Antigen Hep Bs Antibody Hep Bs Antibody, Quant 10/26/18 10/26/18 10/26/18 05:49 07:16 14:24 WBC RBC Hgb Hct MCV MCH MCHC RDW Std Deviation RDW Coeff of Anabelle Plt Count MPV Immature Gran % (Auto) Neut % (Auto) Lymph % (Auto) [place] % (Auto) Eos % (Auto) Baso % (Auto) Immature Gran # (Auto) Neut # (Auto) Lymph # (Auto) [place] # (Auto) Eos # (Auto) Baso # (Auto) PT 11.0 INR 1.1 Sodium Potassium Chloride Carbon Dioxide Anion Gap BUN Creatinine Est Cr Clr Drug Dosing Est GFR ( Amer) Est GFR (Non-Af Amer) BUN/Creatinine Ratio Glucose POC Glucose 139 H 100 H Calcium Phosphorus Magnesium Nasal Screen MRSA (PCR) Hep Bs Antigen Hep Bs Antibody Hep Bs Antibody, Quant 10/26/18 10/26/18 10/26/18 14:43 16:21 20:18 WBC RBC Hgb Hct MCV MCH MCHC RDW Std Deviation RDW Coeff of Anabelle Plt Count MPV Immature Gran % (Auto) Neut % (Auto) Lymph % (Auto) [place] % (Auto) Eos % (Auto) Baso % (Auto) Immature Gran # (Auto) Neut # (Auto) Lymph # (Auto) [place] # (Auto) Eos # (Auto) Baso # (Auto) PT INR Sodium Potassium Chloride Carbon Dioxide Anion Gap BUN Creatinine Est Cr Clr Drug Dosing Est GFR ( Amer) Est GFR (Non-Af Amer) BUN/Creatinine Ratio Glucose POC Glucose 109 H 165 H Calcium Phosphorus Magnesium Nasal Screen MRSA (PCR) Hep Bs Antigen Neg Hep Bs Antibody Immune Hep Bs Antibody, Quant 341.48 (1) Volume overload Hypervolemia type: unspecified Qualified Code(s): E87.70 - Fluid overload, unspecified (2) HTN (hypertension) Hypertension type: essential hypertension Qualified Code(s): I10 - Essential (primary) hypertension (3) Anemia in chronic kidney disease Chronic kidney disease stage: on chronic dialysis Qualified Code(s): N18.6 - End stage renal disease; D63.1 - Anemia in chronic kidney disease; Z99.2 - Dependence on renal dialysis (4) Diabetes Diabetes mellitus type: type 2 Diabetes mellitus extermination inspector insulin use: with extermination inspector use Diabetes mellitus complication status: with kidney complications Diabetes mellitus complication detail: with chronic kidney disease Chronic kidney disease stage: on chronic dialysis Qualified Code(s): E11.22 - Type 2 diabetes mellitus with diabetic chronic kidney disease; N18.6 - End stage renal disease; Z79.4 - long term (current) use of insulin; Z99.2 - Dependence on renal dialysis
[2018-10-27] MEDS: HEPARIN SOD 5,000 UNIT/0.5 ML VIAL SQ SCH (05:32)
[2018-10-27] MEDS: INSULIN ASPART 100 UNITS/ML 3 ML PEN SC SCH ×3 (07:42→16:36)
[2018-10-27] MEDS: GABAPENTIN 600 MG TAB PO SCH ×2 (07:43→14:07)
[2018-10-27] MEDS: METOPROLOL TARTRATE 25 MG TAB PO SCH (07:43)
[2018-10-27] MEDS: PANTOprazole 40 MG TAB PO SCH (07:43)
[2018-10-27] MEDS: VITAMIN B COMPLEX TAB PO SCH (07:44)
[2018-10-27] MEDS: SEVELAMER HCL 800 MG TABLET PO SCH ×3 (07:44→16:37)
[2018-10-27] MEDS: ATORVASTATIN 40 MG TAB PO SCH (07:44)
[2018-10-27] MEDS: SUCRALFATE 1 GM TAB PO SCH ×3 (07:44→16:37)
[2018-10-27] MEDS: ASPIRIN 81 MG ECTAB PO SCH (07:44)
[2018-10-27] MEDS: cloNIDine HCl 0.1 MG TAB PO SCH (07:44)
[2018-10-27] MEDS: AMLODIPINE BESYLATE 5 MG TAB PO SCH (07:44)
[2018-10-27] MEDS: FERROUS SULFATE 325 MG TAB PO SCH (07:45)
[2018-10-27] MEDS ORDERED: INSULIN GLARGINE SOLOSTAR 100 UNITS/ML 3 ML PEN SQ SCH ×2 (09:00)
--- NOTE | 2018-10-27 10:55 | Nephrology Progress Note ---
Date of Service October 27, 2018 Assessment & Plan (1) Shortness of breath: -- Attributed to volume overload -- Clinically improved -- Fluid restriction and compliance with dialysis Rx were enforced (2) ESRD (end stage renal disease) on dialysis: -- Volume status improved -- No need for additional HD today -- Plan next treatment tomorrow per [facility] schedule -- Acceptable for discharge from a nephrology standpoint (3) HTN (hypertension): -- BP to be rechecked -- Continue amlodipine, clonidine, metoprolol (4) Diabetes: -- Blood glucose elevated this AM (5) Anemia in chronic kidney disease: -- Venofer 200 mg and EPO 4000 units provided with HD yesterday Subjective Gabe feels well this morning. He is breathing comfortably. He denies pain. He tolerated HD well yesterday. Net UF 3.3 L. No chest pain or palpitations. Review of Systems Review of Systems: All systems reviewed & are unremarkable except as noted in HPI & below Physical Exam Constitutional: well developed; no acute distress Eyes: no scleral abnormality and no corneal abnormality ENMT: Mouth: no oral mucosal abnormality and oral mucous membranes not dry Neck: normal visual inspection and trachea midline Respiratory: no respiratory distress Auscultation: + rales Cardiovascular: Heart Sounds: normal S1, normal S2 and + murmur Extremities: + AV fistula; no edema Gastrointestinal (Abdomen): Inspection/Auscultation: no abdominal edema Percussion/Palpation: abdomen soft; abdomen nontender Musculoskeletal: Extremities: no cyanosis and no clubbing Skin: normal turgor; no rashes Neurologic: Motor/Sensory: no tremor and no asterixis Psychiatric: Orientation: alert and oriented x 3 Results & Data Vital Signs (Past 12 Hours) Vital Signs Temp Pulse Pulse Resp BP Pulse Ox 10/27/18 08:03 36.4 C L 76 18 172/84 H 94 10/27/18 08:00 72 10/27/18 04:26 36.6 C 76 18 151/76 H 91 10/26/18 23:32 36.8 C 84 22 123/61 94 Laboratory Results Laboratory Results - last 24 hr 10/26/18 10/26/18 10/26/18 14:24 14:43 16:21 POC Glucose 100 H 109 H TSH Hep Bs Antigen Neg Hep Bs Antibody Immune Hep Bs Antibody, Quant 341.48 10/26/18 10/27/18 10/27/18 20:18 06:03 07:24 POC Glucose 165 H 333 H* TSH 2.780 Hep Bs Antigen Hep Bs Antibody Hep Bs Antibody, Quant 10/27/18 07:26 POC Glucose 330 H* TSH Hep Bs Antigen Hep Bs Antibody Hep Bs Antibody, Quant (1) HTN (hypertension) Hypertension type: essential hypertension Qualified Code(s): I10 - Essential (primary) hypertension (2) Diabetes Diabetes mellitus type: type 2 Diabetes mellitus termination clerk insulin use: with penitentiary use Diabetes mellitus complication status: with kidney complications Diabetes mellitus complication detail: with chronic kidney disease Chronic kidney disease stage: on chronic dialysis Qualified Code(s): E11.22 - Type 2 diabetes mellitus with diabetic chronic kidney disease; N18.6 - End stage renal disease; Z79.4 - prison (current) use of insulin; Z99.2 - Dependence on renal dialysis (3) Anemia in chronic kidney disease Chronic kidney disease stage: on chronic dialysis Qualified Code(s): N18.6 - End stage renal disease; D63.1 - Anemia in chronic kidney disease; Z99.2 - Dependence on renal dialysis
--- NOTE | 2018-10-27 15:29 | XRay Report ---
XR chest 2V routine CLINICAL HISTORY: Bilateral rales. Possible pulmonary edema. COMPARISON STUDY: 03/10/2017 FINDINGS: The heart is mildly enlarged. There are no pleural effusions. There is no focal pulmonary c onsolidation. There is subtle interstitial thickening.[ IMPRESSION: 1. Cardiomegaly 2. No evidence of focal pulmonary consolidation 3. Subtle nonspecific interstitial thickening Electronically signed by: Aly Hayes M.D. 10/27/2018 3:28 PM
[2018-10-27] MEDS ORDERED: HEPARIN SOD 5,000 UNIT/0.5 ML VIAL SQ SCH (18:00)
--- NOTE | 2018-11-01 21:33 | Discharge Summary ---
Date of Service date of admission - 10/25/2018 date of discharge - 10/27/2018 Admission HPI Per Admitting Provider Mr. Ayala is a pleasant 58yo male with history of ESRD on HD q M/W/F, HTN, DM, Anemia presenting with shortness of breath. Patient had a full HD treatment today. He reports having 7L of fluid overload and they were only able to remove 3L. Patient was short of breath during HD and required oxygen. After his treatment his room air saturation was still < 90% so he was sent to [facility]. He was subsequently transferred to [facility] for direct admission. He presently feels slightly short of breath with some chest congestion but overall improved. Slight non-productive cough. Patient states he did not receive full HD treatments on Sunday or Sunday as he became frustrated and left with approximately 30 minutes left in his treatment. Course at OSH: Lasix 40mg IV x 1 Principal Diagnosis volume overload 2nd to ESRD Discharge Exam Constitutional well developed and well nourished; no acute distress ENMT external ear and nose normal, oropharynx normal Respiratory Auscultation: + crackles (1/[address] back) Cardiovascular Rate/Rhythm: regular rate and regular rhythm Heart Sounds: normal S1 and normal S2; no murmur Vessels: no JVD Gastrointestinal (Abdomen) normal bowel sounds, soft, nontender, no hepatosplenomegaly Psychiatric A+Ox3, euthymic affect Discharge Data Allergies Allergy/AdvReac Type Severity Reaction Status Date / Time No Known Allergies Allergy Unverified 10/25/18 22:10 Consultations [facility] - Brian Colvin DO Procedures Performed chest x-ray, 2-view: IMPRESSION: 1. Cardiomegaly 2. No evidence of focal pulmonary consolidation 3. Subtle nonspecific interstitial thickening Hospital Course (1) Volume overload: Patient had cut short his HD sessions in [place] recently and admitted to drinking copious amounts of fluid. This was the likely reason for his development of volume overload. He has no prior h/o CHF. TSH was normal. He had 2 serial HD sessions with resolution of his volume overload. O2 sats in room air at rest and with walking on day of discharge were NORMAL despite his ongoing abnormal lung exam (see below). (2) ESRD (end stage renal disease) on dialysis: on HD every Sun/Sun/Sunday. dialyzes in [place]. HD was managed by [facility] while here. (3) HTN (hypertension): cont home regimen (4) Anemia in chronic kidney disease: H/H stable during the stay. discharge hemoglobin was 9.4. (5) Diabetes: had significant hypoglycemia on hospital day #1. adjustments were made to his insulin regimen with no further hypoglycemic spells. (6) Abnormal lung examination: Despite serial dialysis sessions with resolution of his pulmonary symptoms his lung exam continued to have significant bibasilar rales. Chest x-ray on day of discharge showed nonspecific interstitial infiltrates. O2 sats on day of discharge with rest and with activity were NORMAL in room air. I recommended to the patient that he have outpatient PFTs and outpatient chest CT to exclude the possibility of interstitial lung disease. Total Time Total Time Spent Total Time Spent (In Minutes): 40 Total Time Includes: Examination of the Patient, Discharge Planning, Medication Reconciliation and Communication With Other Providers Discharge Plan Discharge Items Patient Disposition: Home - Self-Care Reason For Visit: fluid overload Discharge Diagnosis: fluid overload in the lungs with resulting shortness of breath - resolved with 2 dialysis sessions Discharge Goals: Diagnostic testing and Therapeutic intervention Activity: Resume your previous activity Non-emergency contact: Primary Care Provider and Rda Call non-emergency contact if: you have any medication questions, your symptoms worsen and your temperature is above 100.5 Follow-up/Referrals: Mitul Chu [Primary Care Provider] - (please see DR. Chu within 1 week to ensure your breathing is still normal. Please ask Dr Chu for consideration of a CAT scan of your lungs to rule out "interstitial lung disease") Diet: Carb Consistent or DM2 and Dialysis Renal Fluids: 1500ml (6 cups) Addtl Provider Instructions: [facility] to shortness of breath from volume overload / fluid in the lungs. This resolved with 2 [id number] dialysis sessions. We believe that the excess fluid occurred as a result of drinking too much fluid at home as well as having shortened dialysis sessions recently. Please RESTRICT your 24-hour fluid intake to about 1500cc each day (1.5 liters). Please complete all outpatient dialysis sessions as directed by your kidney doctor. I would also recommend that you speak to your family doctor about obtaining a CAT scan of the lungs to rule out a condition called interstitial lung disease. You have very prominent "crackles" on lung examination which could be from that condition. Follow-up -- * report for dialysis TOMORROW as scheduled in [place] * see Dr Chu within 1 week Return to any hospital if -- * you have worsening shortness of breath * you have chest pain * any other concerns Prescriptions: Continued ASPIRIN (ASPIRIN EC) 81 MG tablet 81 mg PO QAM Qty: 0 RF: 0 FERROUS SULFATE (KP FERROUS SULFATE) 325 MG tablet 1 tab PO BID Qty: 0 RF: 0 Insulin Human Lispro (Humalog) 1 EA INJECTION 8 unit subcut AC Qty: 0 RF: 0 Pantoprazole (Protonix) 40 MG tablet 40 mg PO QAM Qty: 0 RF: 0 Amlodipine (Norvasc) 5 MG tablet 5 mg PO QAM Qty: 0 RF: 0 Ascorbic Acid (Vitamin C) 500 MG tablet 1 tab PO BID Qty: 0 RF: 0 metoprolol tartrate 25 mg Tablet 25 mg PO QAM Qty: 0 RF: 0 atorvastatin [Lipitor] 40 mg tablet 40 mg PO DAILY RF: 0 clonidine HCl [Catapres] 0.1 mg tablet 0.1 mg PO BID RF: 0 gabapentin [Neurontin] 600 mg tablet 2 tabs PO TID RF: 0 sucralfate [Carafate] 1 gram tablet 1 tab PO QID RF: 0 Nephro-Thong 0.8 mg tablet 1 tab-cap PO DAILY RF: 0 sevelamer carbonate [Renvela] 800 mg tablet 1 tab PO TID RF: 0 Changed Insulin Glargine (Toujeo Solostar) 300 UNIT/ML INJECTION 30 unit subcut QAM Qty: 1 RF: 0 Stand-Alone Forms: My [facility]/Other Patient Handouts: Tips Using Less Salt, Heart Failure Diet Changes, Diet Low Salt Dc, Fluids Limiting Dc, Foods Heart Healthy Discharge Orders: Discharge Order (Routine); Ordered 10/27/18 Ordered By: Jarvis Landon Admission Data Admit Date/Time: 10/25/18 21:25 Attending Provider: Jarvis Landon Admit Provider: Pepe Williamson Primary Care Provider: Mitul Chu Other Providers: Myrna Green Kevin C. Service: Telemetry Other Interventions: Discharge Summary Assessment (RN) Last Done: 10/27/18 16:04 DC Date/Time DO NOT enter until pt leaves facility: 10/27/18 17:58
== END 2018-10-27 17:58 | disposition home or self-care (01) | DRG 640 ==
LOC: SUATTDRO 21:25 → 2E 21:25
DX: E11.319 Type 2 diabetes mellitus with unspecified diabetic retinopathy without macular edema; Z89.511 Acquired absence of right leg below knee; N18.6 End stage renal disease; Z79.82 Long term (current) use of aspirin; F17.210 Nicotine dependence, cigarettes, uncomplicated; D63.1 Anemia in chronic kidney disease; Z99.2 Dependence on renal dialysis; E11.42 Type 2 diabetes mellitus with diabetic polyneuropathy; E11.649 Type 2 diabetes mellitus with hypoglycemia without coma; Z91.15 Patient's noncompliance with renal dialysis; E11.22 Type 2 diabetes mellitus with diabetic chronic kidney disease; E87.79 Other fluid overload; I12.0 Hypertensive chronic kidney disease with stage 5 chronic kidney disease or end stage renal disease; Z79.4 Long term (current) use of insulin; Z79.899 Other long term (current) drug therapy